=== PATIENT | male | born 1940 | race Caucasian/White ===

== ENCOUNTER 2023-01-06 08:03 | Outpatient (OUT) | payer MEDICARE, SELFPAY ==
[2023-01-06 08:38] LABS: Basophils Absolute Auto 0.1 10^3/uL (0.0-0.1); Basophils Percent Auto 0.6 % (0.2-2.0); Eosinophils Absolute Auto 0.5 10^3/uL (0.0-0.7); Eosinophils Percent Auto 5.6 % (0.9-7.0); Hemoglobin 13.3 g/dL (14.0-18.0); Immature Granulocytes Abs Auto 0.02 10^3/uL (0.00-0.03); Immature Granulocytes Pct Auto 0.2 % (0.0-0.5); Lymphocytes Percent Auto 24.2 % (20.5-60.0); Mean Corpuscular HGB Conc 33.3 g/dL (29.9-35.2); Mean Corpuscular Hemoglobin 31.7 pg (25.9-34.0); Mean Corpuscular Volume 95.2 fL (80.0-94.0); Mean Platelet Volume 10.5 fL (9.5-13.5); Monocytes Absolute Auto 0.8 10^3/uL (0.3-0.8); Monocytes Percent Auto 9.8 % (1.7-12.0); Neutrophils Percent Auto 59.6 % (43.0-75.0); Platelet Count 168 10^3/uL (150-450); Red Cell Distribution Width 14.4 % (11.0-15.0); White Blood Count 8.4 10^3/uL (4.0-11.0)
[2023-01-06 09:35] LABS: Estimated Average Glucose 108 mg/dL; Glycohemoglobin A1C 5.4 % (4.5-6.2)
[2023-01-06 09:48] LABS: Alanine Aminotransferase 21 U/L (16-63); Albumin Level 3.3 g/dL (3.4-5.0); Alkaline Phosphatase 110 U/L (46-116); Anion Gap 12.2; Aspartate Amino Transferase 12 U/L (15-37); BUN Creatinine Ratio 21.9; Bilirubin Total 1.2 mg/dL (0.2-1.0); Calcium 8.6 mg/dL (8.5-10.1); Carbon Dioxide 27.3 mmol/L (21.0-32.0); Chloride 108 mmol/L (98-107); Estimated GFR (African America 47 (>=60); Estimated GFR (Non-African Ame 39 (>=60); Globulin 3.4 g/dL; Glucose 95 mg/dL (74-106); Potassium 4.5 mmol/L (3.5-5.1); Sodium 143 mmol/L (136-145); Total Protein 6.7 g/dL (6.4-8.2)
[2023-01-06 10:05] LABS: Cholesterol 63 mg/dL (<=200); Free T3 2.13 pg/mL (2.18-3.98); HDL Cholesterol 28 mg/dL (40-60); Thyroid Stimulating Hormone 1.994 uIU/mL (0.358-3.740); Triglycerides 33 mg/dL (<=150); VLDL CHOLESTEROL 6.6 mg/dL
[2023-01-06 10:07] LABS: Chol HDL Ratio 2.3
[2023-01-06 10:10] LABS: Prostate Specific Antigen Scrn 2.31 ng/mL (<=4.00)
== END 2023-01-06 08:04 ==
LOC: LAB 08:07
PROVIDERS: PCP Family Medicine; Visit Provider Family Medicine
DX: E11.40 Type 2 diabetes mellitus with diabetic neuropathy, unspecified (principal); E78.5 Hyperlipidemia, unspecified; I10 Essential (primary) hypertension; Z12.5 Encounter for screening for malignant neoplasm of prostate; Z12.12 Encounter for screening for malignant neoplasm of rectum; I11.0 Hypertensive heart disease with heart failure; I50.30 Unspecified diastolic (congestive) heart failure
CPT/HCPCS: 36415; 80053; 80061; 83036; 83880; 84436; 84443; 84481; 85025; G0103

== ENCOUNTER 2023-01-15 14:00 | Outpatient (OUT) | payer MEDICARE, SELFPAY ==
--- NOTE | 2023-01-15 14:03 | CA_ITS ---
Patient: MARTINA DRIVER Exam Date: 01/15/2023 : 1940 Gender:M Ordering : DR Janusz Schuster . Admission #: [id number] Family : Order #: [id number] CLICK HERE TO VIEW EXAM ECHOCARDIOGRAM REPORT PROCEDURE: CA ECHO DOPPLER COMPLETE INDICATIONS: Shortness of breath, chest pain COMPARISON: None. DESCRIPTION: COMPLETE ECHOCARDIOGRAM Real-time transthoracic echocardiography with 2D, M-mode, spectral and color flow Doppler performed. QUALITY: Technical quality was good. LEFT VENTRICLE: Normal chamber size. Moderate concentric left ventricular hypertrophy. Global left ventricular systolic function is normal. LV EF: Calculated left ventricular ejection fraction is 57% DIASTOLIC: ATRIAL SEPTUM: LEFT ATRIUM: Moderate dilatation. RIGHT ATRIUM: Moderate dilatation. RIGHT VENTRICLE: Mild dilatation. Normal right ventricular systolic function. TRICUSPID VALVE: Normal mobility and thickness. No stenosis with trivial regurgitation. Mild pulmonary hypertension. RVSP 42 mmHg MITRAL VALVE: Normal mobility and thickness. No evidence of mitral valve stenosis. There is no mitral annular calcification. Mild mitral regurgitation. AORTIC VALVE: Normal trileaflet appearance. No visible sclerosis. Normal leaflet mobility. No evidence of aortic valve stenosis. No aortic regurgitation. AORTIC ROOT: Normal diameter and appearance. PULMONIC VALVE: Normal thickness and mobility. No stenosis. No regurgitation. PERICARDIUM: No evidence of pericardial effusion. IVC: Collapses with inspirations. Mildly dilated measuring 2.3 cm. PLEURA: CONCLUSION: 1. Moderate concentric left ventricular hypertrophy with normal systolic function. LVEF is estimated at 55 to 60%. 2. Mildly dilated right ventricle with normal systolic function. 3. Moderate biatrial dilatation. 4. Mild mitral regurgitation. 5. Mildly elevated right-sided pressures. RVSP is 42 mmHg. 6. No pericardial effusion. Adult Echocardiography Procedure Report Left Ventricle LVEDD (3.7 - 5.6 cm): 5.92 cm LVESD (2.2 - 4.0 cm): 3.57 cm LVIVS thickness (0.6 - 1.2 cm): 1.36 cm LVPW thickness (0.5 - 1.0 cm): 1.19 cm e': 0.08 m/s E - e': 10.56 LVOT Max Gradient: 3.75 mm[Hg] LVOT Area (cm2): 0.97 m/s Peak Velocity (LVOT): 0.97 m/s Mean Velocity (LVOT): 0.64 m/s LVOT Diameter 2.21 cm Left Ventricular Ejection Fraction: 56.58 % Left Atrium LA Volume Index (2D A2C): 46.60 ml/m2 Left Atrium Systolic Dimension: 4.56 cm Mitral Valve MV E to A Ratio: 0.93 Mitral Valve A-Wave Peak Velocity: 0.87 m/s Mitral Valve E-Wave Peak Velocity: 0.81 m/s Right Ventricle RV Internal Diastolic Dimension: 4.36 cm Aorta AO Root Diam: 3.46 cm Ascending Ao Diam: 3.34 cm Aortic Valve AoV Area (Peak Randy): 2.99 cm2, 2.99 cm2 AoV Area (VTI): 3.44 cm2, 3.44 cm2 Peak Velocity(Antegrade Flow): 1.25 m/s Peak Gradient(Antegrade Flow): 6.23 mm[Hg] Mean Velocity(Antegrade Flow): 0.77 m/s Mean Gradient(Antegrade Flow): 2.71 mm[Hg] Velocity Time Integral: 29.61 cm Tricuspid Valve Peak Velocity (Regurgitant Flow): 2.70 m/s, 2.91 m/s Pulmonic Valve Mean Gradient: 2.79 mm[Hg], 2.99 mm[Hg] Mean Velocity: 0.78 m/s, 0.81 m/s Peak Velocity: 1.15 m/s Peak Gradient: 5.09 mm[Hg], 5.42 mm[Hg] Right Atrium Right Atrium Systolic Pressure: 90.44 ml, 90.44 ml Dictated by: Ang Richmond M.D. on 01/15/2023 at 18:50 Approved by: Ang Richmond M.D. on 01/15/2023 at 18:53
[2023-01-16 03:14] LABS: Occult Blood Positive
== END 2023-01-15 14:01 | disposition home or self-care (01) ==
LOC: CARD 14:01
PROVIDERS: PCP Family Medicine; Visit Provider Family Medicine
DX: R06.02 Shortness of breath (principal); R07.9 Chest pain, unspecified; I34.0 Nonrheumatic mitral (valve) insufficiency; I51.7 Cardiomegaly
CPT/HCPCS: 93306; G0328

== ENCOUNTER 2024-04-04 07:12 | Outpatient (OUT) | payer MEDICARE, SELFPAY ==
[2024-04-04 07:32] LABS: Basophils Absolute Auto 0.1 10^3/uL (0.0-0.1); Basophils Percent Auto 0.7 % (0.2-2.0); Eosinophils Absolute Auto 0.6 10^3/uL (0.0-0.7); Hemoglobin 13.1 g/dL (14.0-18.0); Immature Granulocytes Abs Auto 0.02 10^3/uL (0.00-0.03); Immature Granulocytes Pct Auto 0.2 % (0.0-0.5); Lymphocytes Absolute Auto 2.1 10^3/uL (1.2-3.8); Lymphocytes Percent Auto 22.7 % (20.5-60.0); Mean Corpuscular HGB Conc 32.8 g/dL (29.9-35.2); Mean Corpuscular Volume 97.8 fL (80.0-94.0); Monocytes Absolute Auto 0.8 10^3/uL (0.3-0.8); Neutrophils Absolute Auto 5.6 10^3/uL (1.4-6.5); Neutrophils Percent Auto 60.4 % (43.0-75.0); Platelet Count 160 10^3/uL (150-450); Red Blood Count 4.09 10^6/uL (4.70-6.10); White Blood Count 9.2 10^3/uL (4.0-11.0)
[2024-04-04 08:24] LABS: Alanine Aminotransferase 20 U/L (16-63); Albumin Globulin Ratio 1.2; Albumin Level 3.5 g/dL (3.4-5.0); Alkaline Phosphatase 100 U/L (46-116); Anion Gap 13.6; Aspartate Amino Transferase 12 U/L (15-37); BUN Creatinine Ratio 21.9; Bilirubin Total 1.4 mg/dL (0.2-1.0); Calcium 8.7 mg/dL (8.5-10.1); Carbon Dioxide 26.9 mmol/L (21.0-32.0); Chloride 109 mmol/L (98-107); Cholesterol <50 mg/dL (<=200); Estimated GFR (African America 44 (>=60); Estimated GFR (Non-African Ame 37 (>=60); Free T3 2.36 pg/mL (2.18-3.98); Glucose 67 mg/dL (74-106); HDL Cholesterol 25 mg/dL (40-60); Potassium 4.5 mmol/L (3.5-5.1); Sodium 145 mmol/L (136-145); Thyroid Stimulating Hormone 2.627 uIU/mL (0.358-3.740); Total Protein 6.5 g/dL (6.4-8.2); Triglycerides 37 mg/dL (<=150); VLDL CHOLESTEROL 7.4 mg/dL
[2024-04-04 08:26] LABS: Estimated Average Glucose 123 mg/dL; Glycohemoglobin A1C 5.9 % (4.5-6.2)
[2024-04-04 08:57] LABS: Prostate Specific Antigen Scrn 2.17 ng/mL (<=4.00)
== END 2024-04-04 07:13 | disposition home or self-care (01) ==
LOC: LAB 07:16
PROVIDERS: PCP Family Medicine; Visit Provider Family Medicine
DX: I11.0 Hypertensive heart disease with heart failure (principal); I50.9 Heart failure, unspecified; E11.40 Type 2 diabetes mellitus with diabetic neuropathy, unspecified; E78.5 Hyperlipidemia, unspecified; N40.0 Benign prostatic hyperplasia without lower urinary tract symptoms; J44.9 Chronic obstructive pulmonary disease, unspecified; I10 Essential (primary) hypertension; E03.9 Hypothyroidism, unspecified; Z12.5 Encounter for screening for malignant neoplasm of prostate
CPT/HCPCS: 36415; 80053; 80061; 83036; 83880; 84436; 84443; 84481; 85025; G0103

== ENCOUNTER 2024-12-20 13:23 | Emergency (ER) | payer MEDICARE, SELFPAY ==
--- OUTSIDE RECORDS SUMMARY | 2024-10-19 09:10 | XMS_ITS ---
Author Organization The [facility] in [place] Address [address] [place] [address] Care Team Providers Care Database Marketing Manager Name Role Phone Ozzy Schuster Primary Care Provider [phone] REASON FOR VISIT basaglar no longer covered Medications Medication SIG (Take, Route, Frequency, Duration) Notes Start Date End Date Status Insulin Glargine 100 UNIT/ML Inject 30 units Subcutaneous BID for 90 days 4 boxes 10/19/2024 Active Encounters Encounter Location Date Provider Diagnosis [facility] [address] [place] [address] 10/19/2024 Ozzy Schuster Plan Of Treatment Medication Medication Name Sig Start Date Stop Date Notes Insulin Glargine 100 UNIT/ML Inject 30 u nits Subcutaneous BID for 90 days 10/19/2024 Next Appt Details Provider Name:Ozzy Kovacs Chunbeto, 10:30:00 AM, [address] [place], [address], Progress Notes * Henry DRIVER RDOB:[birth year] (84 yo M)Acc No.[id number]:10/19/2024 Patient: Maria Ines Henry GANNON :1940 A ge:84 Y S ex:Male Address:[address] [place] [address], [phone] * Refills Start Insulin Glargine Solution Pen-injector, 100 UNIT/ML, Subcutaneous, 60 Milliliter, Inject 30 units, BID, 90 days, Refills=3 * true * Date: Generated for Armando alicea/Rex/Darbyitting on: 0 12/20/2024 01:31 PM EDT
--- OUTSIDE RECORDS SUMMARY | 2024-11-17 05:22 | XMS_ITS ---
Author Organization The [facility] in [place] Address [address] [place] [address] Care Team Providers Care Camper Assembler Name Role Phone Ozzy Schuster Primary Care Provider [phone] REASON FOR VISIT Trelegy Medications Medication SIG (Take, Route, Frequency, Duration) Notes Start Date End Date Status Trelegy Ellipta 100-62.5-25 MCG/ACT 1 puff Inhalation Once a day for 30 days 11/17/2024 Active Encounters Encounter Location Date Provider Diagnosis [facility] [address] [place] [address] 11/17/2024 Ozzy Schuster Plan Of Treatment Medication Medication Name Sig Start Date Stop Date Notes Trelegy Ellipta 100-62.5-25 MCG/ACT 1 puff Inhalation Once a day for 30 days 11/17/2024 Next Appt Details Provider Name:Ozzy Kovacs Chunbeto, 10:30:00 AM, [address] [place], [address], Progress Notes * Henry DRIVER RDOB:[birth year] (84 yo M)Acc No.[id number]:11/17/2024 Patient: Maria Ines Henry GANNON :1940 A ge:84 Y S ex:Male Address:[address] [place] [address], [address] * Refills Start Trelegy Ellipta Aerosol Powder Breath Activated, 100-62.5-25 MCG/ACT, Inhalation, 1, 1 puff, Once a day, 30 days, Refills=11 * true * Date: Generated for Armando alicea/Rex/Matilde on: 0 12/20/2024 01:31 PM EDT
--- OUTSIDE RECORDS SUMMARY | 2024-11-27 06:15 | XMS_ITS ---
Author Organization The [facility] in [place] Address [address] [place] [address] Care Team Providers Care Foreign Broadcast Specialist Name Role Phone Ozzy Schuster Primary Care Provider REASON FOR VISIT 3mo Encounters Encounter Location Date Provider Diagnosis [address] [address] 11/27/2024 Ozzy Schuster Plan Of Treatment Next Appt Details Provider Name:Ozzy Schuster, 10:30:00 AM, [address] [place], [address], Progress Notes * Henry DRIVER RDOB:[birth year] (84 yo M)Acc No.[id number]:11/27/2024 UNLOCKED PROGRESS NOTE Progress Note Patient: Maria Ines WOOHenry SILVESTRE Provider: Sergey Schuster MD (TTC) :1940 A ge:84 Y S ex:Male Date:11/27/2024 Address:[address] [place], [place] [id number] Subjective: * Chief Complaints: * 1 . 3mo. * Medical History: Objective: * Vitals: Assessment: Plan: * Treatment: * * Electronic signature of Ozzy Schuster MD, [id number] on 12/20/2024 at 01:31 PM EDT Sign off status: Pending Visit Status: N /S N/C (No Show/No Charge) * Provider: Sergey TORRESMD Valeria Date: 0 11/27/2024 Generated for Armando alicea/Rex/Matilde on: 0 12/20/2024 01:31 PM EDT
--- OUTSIDE RECORDS SUMMARY | 2024-12-07 13:30 | XMS_ITS | Encounter Summary ---
Author Organization [facility] Address [address] 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 No / Unsure 12/07/2024 1:02 PM EDT documented as of this encounter Last Filed Vital Signs Vital Sign Reading Time Taken Comments Blood Pressure 126/84 12/07/2024 1:34 PM EDT Pulse 80 12/07/2024 1:34 PM EDT Temperature 37 C (98.6 F) 12/07/2024 1:34 PM EDT Respiratory Rate - - Oxygen Saturation - - Inhaled Oxygen Concentration - - Weight 103 kg (226 lb) 12/07/2024 1:34 PM EDT Height 170.2 cm (5' 7 ) 12/07/2024 1:34 PM EDT Body Mass Index 35.4 12/07/2024 1:34 PM EDT documented in this encounter Progress Notes * Dayna Varela LPN - 12/07/2024 1:30 PM EDT Patient here for Wound check ordered by Dr. Drew due to PM dual changer implant 11/30/2024. Dr. Singleton in suite to review prior to discharge. Patient here due to wound check. Medication list Updated with list . Denies cardiac complaints. Dressing removed. No redness, warmth or drainage noted. Very minimal bruising or swelling. [address] Drew to read. Vitals: 12/07/24 1334 BP: 126/84 BP Location: Right arm Patient Position: Sitting Pulse: 80 Temp: 37 ??C (98.6 ??F) Weight: 103 kg (226 lb) Height: 1.702 m (5' 7 ) documented in this encounter Plan of Treatment Upcoming Encounters Date Type Department Care Team (Late st Contact Info) Description 03/09/2025 11:00 AM EDT Appointment [facility] [address] [place] [address] 03/09/2025 11:40 AM EDT Office Visit [facility] [address] [facility] [address] [place] [address] Yesenia Drew MD [address] [facility] Office Bldg, [address] [place] [address] 06/04/2025 10:30 AM EST Office Visit [address] [place] [address] Gali Marcus, BUSINESS SOLUTIONS CONSULTANT-COMPUTER APPLICATIONS DEVELOPER [address] [facility] [address], [address] [place] [address] documented as of this encounter Visit Diagnoses Diagnosis Presence of cardiac pacemaker Cardiac pacemaker in situ Bradycardia Other specified cardiac dysrhythmias 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
--- OUTSIDE RECORDS SUMMARY | 2024-12-20 13:31 | XMS_ITS | Encounter Summary ---
Author Organization [facility] Address [address] [place] [address] Phone Care Team Providers Care Shake Maker Name Role Phone Janusz Schuster MD Primary Care Provider [phone] Yesenia Drew MD Unavailable Encounter Details Date Type Department Care Team (Late st Contact Info) Description 10/24/2021 Orders Only [facility] [address] [place] [address] Conversion, Onbase Social History Tobacco Use Types Packs/Day Years Used Date Smoking Tobacco: Never Assessed Sex and Gender Information Value Date Recorded Sex Assigned at Not on file Legal Sex Male 5:06 AM EST Gender Identity Not on file Sexual Orientation Not on file documented as of this encounter Plan of Treatment Upcoming Encounters Date Type Department Care Team (Late st Contact Info) Description 03/09/2025 11:00 AM EDT Appointment [facility] [address] [place] [address] 03/09/2025 11:40 AM EDT Office Visit [facility] [address] [facility] [address] [place] [phone] Yesenia Drew MD [address] [facility] Office Bldg, [address] [place], [place] [phone] 06/04/2025 10:30 AM EST Office Visit [place] [address] [place] [address] Gali Marcus, SPLICING SUPERVISOR-METAL CANS SUPERVISOR [address] [facility] [address], [address] [place] [address] Scheduled Orders Name Type Priority Associated Diagnoses Orde r Schedule OUTSIDE LAB SCAN Lab Ordered: 10/24/2021 documented as of this encounter Visit Diagnoses Not on filedocumented in this encounter Care Teams Shake Maker Relationship Specialty Start Date End Date Janusz Schuster MD [address] [facility] [place] [address] PCP - General 07/19/99 Yesenia Drew MD [address] [facility] Office [facility], [address] [place] [address] Relocation Associate Electrophysiology 11/09/24 documented as of this encounter
--- OUTSIDE RECORDS SUMMARY | 2024-12-20 13:31 | XMS_ITS | Clinical Summary ---
Author Organization [facility] Address [address] [place] [address] Phone Care Team Providers Care Acid Extractor Name Role Phone Janusz Schuster MD Primary Care Provider [phone] Yesenia Drew MD Unavailable Allergies No known active allergies Medications atorvastatin (Lipitor) 40 mg tablet Take 1 tablet (40 mg) by mouth once daily at bedtime. 09/17/19 21 Active insulin NPH and regular human (NovoLIN 70/30 U-100 Insulin) 100 unit/mL (70-30) injection Inject under the skin. 03/11/20 20 Active isosorbide mononitrate ER (Imdur) 30 mg 24 hr tablet Take 1 tablet (30 mg) by mouth once daily. 03/26/20 21 Active metFORMIN (Glucophage) 500 mg tablet Take 1 tablet (500 mg) by mouth 2 times a day. 07/20/19 21 Active Klor-Con M20 20 mEq ER tablet Take 1 tablet (20 mEq) by mouth 2 times a day. 07/10/20 20 Active lisinopril 2.5 mg tabletIndicatio ns:Coronary artery disease, unspecified vessel or lesion type, unspecified whether angina present, unspecified whether [place] or transplanted heart TAKE 1 TABLET BY MOUTH EVERY DAY 90 tablet 3 03/23/20 24 Active furosemide (Lasix) 40 mg tabletIndicatio ns:Coronary artery disease involving [place] coronary artery of [place] heart without angina pectoris,Histor y of PTCA,SOB (shortness of breath) on exertion Take 1 tablet (40 mg) by mouth once daily. 90 tablet 3 10/29 Active Trelegy Ellipta 100-62.5-25 mcg blister with device Inhale 1 puff once every 24 hours. 11/18/19 Active aspirin 81 mg EC tabletIndicatio ns:Pacemaker Take 1 tablet (81 mg) by mouth once daily. Hold for 1 week and resume on 12/07/24 12/01/19 Active clopidogrel (Plavix) 75 mg tabletIndicatio ns:Pacemaker Take 1 tablet (75 mg) by mouth once daily. Hold for 1 week and resume on 12/07/2024 12/01/19 Active acetaminophen (Tylenol) 325 mg tabletIndicatio ns:Pacemaker,Po st-op pain Take 2 tablets (650 mg) by mouth every 4 hours if needed for mild pain (1 - 3) or moderate pain (4 - 6). 12/01/19 Active clopidogrel (Plavix) 75 mg tablet Take 1 tablet (75 mg) by mouth once daily. 04/28/20 Discontinued aspirin 81 mg EC tablet Take 1 tablet (81 mg) by mouth once daily. 12/01/19 Discontinued traMADol (Ultram) 50 mg tabletIndicatio ns:Pacemaker,Po st-op pain Take 1 tablet (50 mg) by mouth every 8 hours if needed for moderate pain (4 - 6) or severe pain (7 - 10). If no relief from tylenol then alternate tylenol with Tramadol 10 tablet 12/01/19 Discontinued( erapy completed) Active Problems Problem Noted Date Diagnosed Date Former smoker 11/21/2024 Encounter for medication review and counseling 0 11/21/2024 Encounter to discuss treatment options Encounter to establish care with new doctor 12/2024 Sinus pause 11/21/2024 Bradycardia 08/28/2024 Assessment & Plan (10/12/2024 2:15 PM EDT): Aug 2024: ECG in office bradycardia at 43 bpm Sinus arrhythmia On Toprol 25 mg daily He denies any dizziness or lightheadedness. No prior syncopal episode. Minimal fatigability. Toprol was to be discontinued. September 2024 Holter: Abnormal 48-hour Holter monitor. The patient rhythm was sinus throughout average heart rate 66 bpm with marked sinus arrhythmia. Patient had significant pauses up to 4.8 seconds which was not symptomatic during an event of marked sinus bradycardia. Relatively small volume of isolated PVCs were seen represented 0.5% of total QRS complexes. No atrial arrhythmias were seen. He was referred to Dr. Drew (I only realized today that the appointment is not until November 2024) September 2024: Following a cystoscopy/TURP reportedly had heart rate in the 30s (no documentation) and was monitored overnight at [facility] without significant arrhythmias. EKG in office today is normal sinus rhythm at 72 bpm. He continues to deny any type of dizziness or lightheadedness. No prior syncopal episode. Has minimal fatigability, no dyspnea on exertion. Assessment & Plan (08/28/2024 12:43 PM EST): ECG in office bradycardia at 43 bpm Sinus arrhythmia On Toprol 25 mg daily. He denies any dizziness or lightheadedness. No prior syncopal episode. Minimal fatigability. 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% Diabetes mellitus (Multi) 06/25/2023 Assessment & Plan (10/12/2024 2:15 PM EDT): On statin/BALJINDER Unknown hemoglobin A1c Assessment & Plan (08/28/2024 12:43 PM EST): On statin/BALJINDER Unknown hemoglobin A1c Hyperlipidemia 06/25/2023 Assessment & Plan (10/12/2024 2:00 PM EDT): Moderate intensity statin Report annual labs at [facility] Assessment & Plan (08/28/2024 12:42 PM EST): Moderate intensity statin Report annual labs at [facility] BMI 35.0-35.9,adult 06/25/2023 Assessment & Plan (10/12/2024 2:15 PM EDT): Reviewed the merits of healthy lifestyle choices on overall cardiovascular health. Assessment & Plan (08/28/2024 12:44 PM EST): Reviewed the merits of healthy lifestyle choices on overall cardiovascular health. Sick sinus syndrome due to s inoatrial node dysfunction (Multi) 06/25/2023 SOB (shortness of breath) on exertion 06/25/2023 Resolved Problems Problem Noted Date Diagnosed Date Resolved Date History of PTCA 06/25/2023 08/28/2024 Paroxysmal atrial fibrillation (Multi) 06/25/2023 08/28/2024 Encounters Date Type Department Care Team Description 12/20/2024 Telephone [facility] [address] [facility] [address] [place] [address] Naeem High RN 12/07/2024 1:30 PM EDT Clinical Support [facility] [address] [facility] [address] [place] [address] Dayna Varela LPN Presence of cardiac pacemaker; Bradycardia; Sick sinus syndrome due to sinoatrial node dysfunction (Multi); Sinus pause 12/07/2024 Travel 11/30/2024 8:30 AM EDT - 11/30/2024 10:00 AM EDT Surgery [facility] [address] [place] [phone] Yesenia Drew MD PPM IMPLANT DUAL [13558 (CPT )] 11/30/2024 8:00 AM EDT Anesthesia Event [facility] [address] [place] [phone] Pily Ashton MD 11/30/2024 6:00 AM EDT - 11/30/2024 1:59 PM EDT Hospital Encounter [facility] [address] [place] [phone] Yesenia Drew MD Bradycardia (Primary Dx); Sick sinus syndrome due to sinoatrial node dysfunction (Multi); Sinus pause; Pacemaker; Post-op pain Discharge Disposition: Home 11/30/2024 Travel 11/22/2024 Telephone [facility] [address] [facility] [address] [place] [address] Wilma Marquez LPN lab results 11/21/2024 9:35 AM EDT Lab [facility] [address] [place] [phone] Bradycardia, unspecified (Primary Dx); Sick sinus syndrome (Multi); Other specified heart block 11/21/2024 7:15 AM EDT Office Visit [facility] [address] [address] Yesenia Drew MD Bradycardia (Primary Dx); Sick sinus syndrome due to sinoatrial node dysfunction (Multi); Sinus pause; Coronary artery disease involving [place] coronary artery of [place] heart without angina pectoris; Mixed hyperlipidemia; SOB (shortness of breath) on exertion; BMI 35.0-35.9,adult; Former smoker; Encounter for medication review and counseling; Encounter to discuss treatment options; Encounter to establish care with new doctor 11/21/2024 Travel 11/07/2024 Telephone [facility] [address] [facility] [address] [place] [address] Carolina Brooks LPN 10/17/2024 3:00 PM EDT Ancillary Procedure [address] [place] [address] Libertad Montoya LPN Bradycardia 10/17/2024 Travel 10/12/2024 2:00 PM EDT Office Visit [address] [place] [address] Gali Marcus APRN-PAUL Bradycardia (Primary Dx); Coronary artery disease involving [place] coronary artery of [place] heart without angina pectoris; Mixed hyperlipidemia; Sick sinus syndrome due to sinoatrial node dysfunction (Multi); Type 2 diabetes mellitus without complication, with long-term current use of insulin (Multi); BMI 35.0-35.9,adult 10/12/2024 Travel 09/29/2024 Scanned Document [facility] [address] [place] [address] Scanning, Generic Provider 09/29/2024 Orders Only [facility] [address] [place] [address] Gian Lyon, DO 09/28/2024 Scanned Document [facility] [address] [place] [address] Scanning, Generic Provider 09/28/2024 Orders Only [facility] [address] [place] [address] Gian Lyon, DO 09/21/[address] [address] Dayna Varela LPN from Last 3 Months Immunizations Immunization Administration Dates Next Due Flu vaccine, trivalent, pres ervative free, HIGH-DOSE, age 65y+ (Fluzone) 06/17/2017 Family History Medical History Relation Name Comments Bone cancer Father Heart attack Mother Relation Name Status Comments Father Mother Social History Tobacco Use Types Packs/Day Years [...] No / Unsure 12/07/2024 1:02 PM EDT Last Filed Vital Signs Vital Sign Reading Time Taken Comments Blood Pressure 126/84 12/07/2024 1:34 PM EDT Pulse 80 12/07/2024 1:34 PM EDT Temperature 37 C (98.6 F) 12/07/2024 1:34 PM EDT Respiratory Rate 18 11/30/2024 12:30 PM EDT Oxygen Saturation 96% 11/30/2024 12:30 PM EDT Inhaled Oxygen Concentration - - Weight 103 kg (226 lb) 12/07/2024 1:34 PM EDT Height 170.2 cm (5' 7 ) 12/07/2024 1:34 PM EDT Body Mass Index 35.4 12/07/2024 1:34 PM EDT Plan of Treatment Upcoming Encounters Date Type Department Care Team (Late st Contact Info) Description 03/09/2025 11:00 AM EDT Appointment [facility] [address] [place] [address] 03/09/2025 11:40 AM EDT Office Visit [facility] [address] [facility] [address] [place] [address] Yesenia Drew MD [address] [facility] Medical Office Bldg, [address] [place] [address] 06/04/2025 10:30 AM EST Office Visit [address] [place] [address] Gali Marcus, RECONCILIATION MACHINE OPERATOR-INTERNET DEVELOPER [address] [facility] [address], [address] [place] [address] Health Maintenance Due Date Last Done Comments Diabetes: Hemoglobin A1C 1940 Diabetes: Urine Protein Screening 1940 Lipid Panel 1939 Pneumococcal Vaccine (1 of 2 - PCV) 1958 DTaP/Tdap/Td Vaccines (1 - Tdap) 1961 Zoster Vaccines (1 of 2) 1989 RSV High Risk: (Elderly (60+ ) or Population) (1 - 1-dose 75+ series) 2014 Medicare Annual Wellness Vis it (AWV) 06/06/2020 06/05/2019 Echocardiogram 10/23/2022 10/23/2021 COVID-19 Vaccine (1 - 2023-2 5 season) 2024 Diabetes: Retinopathy Screening 06/03/2024 06/03/2022, 10/23/2020, 11/15/2018 Influenza Vaccine (Season Ended) 2025 04/14/2023, 06/17/2017 Creatinine Level 11/30/2025 11/30/2024, 11/21/2024 Potassium Level 11/30/2025 11/30/2024, 11/21/2024 HIB Vaccines Aged Out No longer eligi ble based on patient's age to complete this topic HPV Vaccines Aged Out No longer eligi ble based on patient's age to complete this topic Hepatitis A Vaccines Aged Out No long er eligible based on patient's age to complete this topic Hepatitis B Vaccines Aged Out No long er eligible based on patient's age to complete this topic IPV Vaccines Aged Out No longer eligi ble based on patient's age to complete this topic Meningococcal Vaccine Aged Out No diego heather eligible based on patient's age to complete this topic Rotavirus Vaccines Aged Out No longer eligible based on patient's age to complete this topic Medical Devices Implanted Type Area Electrolytic Etcher Device Identifier Shelf Expiration Date Model / Serial / Lot Lead, Capsurefix Novus, 52 Cm - [id number] Implanted:Qty : 1 on 11/30/2024 by Yesenia Drew MD at [facility] Cardiac Pacemaker Left: Chest [employer] [id number] 08/01/2026 5076-52 / [id number] 3V / [id number] 3V Lead, Capsurefix Novus, 45 Cm - [id number] Implanted:Qty : 1 on 11/30/2024 by Yesenia Drew MD at [facility] Cardiac Pacemaker Left: Chest [employer] [id number] 08/11/2026 5076-45 / [id number] 7V / [id number] 7V Pacemaker, Dual Chamber, Lesli Mri Xt Dr - [id number] - [id number] Implanted:Qty : 1 on 11/30/2024 by Yesenia Drew MD at [facility] Cardiac Pacemaker Left: Chest [employer] [id number] 03/15/2026 [id number] / [id number] 4G / [id number] [id number] Procedures Procedure Name Priority Date/Time Associated Diagnosis Comments CARDIAC DEVICE CHECK - INPATIENT - PACEMAKER DUAL CHAMBER WITH PROG Routine 11/30/2024 12:53 PM EDT Sinus pause Pacemaker ECG 12-LEAD STAT 11/30/2024 10:13 AM EDT PPM IMPLANT DUAL Routine 11/30/2024 9:08 AM EDT Bradycardia Sick sinus syndrome due to sinoatrial node dysfunction (Multi) Sinus pause ECG 12-LEAD STAT 11/30/2024 7:56 AM EDT COAGULATION SCREEN STAT 11/30/2024 6: 53 AM EDT CBC STAT 11/30/2024 6:53 AM EDT BASIC METABOLIC PANEL STAT 11/30/2024 6:53 AM EDT PHLEB CHARGE - VENIPUNCTURE (LAB USE ONLY) Routine 11/21/2024 8:14 AM EDT Bradycardia, unspecified Sick sinus syndrome (Multi) Other specified heart block BASIC METABOLIC PANEL Routine 11/21/2024 8:14 AM EDT Bradycardia, unspecified Sick sinus syndrome (Multi) Other specified heart block CBC Routine 11/21/2024 8:14 AM EDT Bradycardia, unspecified Sick sinus syndrome (Multi) Other specified heart block PROTIME-INR Routine 11/21/2024 8:14 AM EDT Bradycardia Sick sinus syndrome due to sinoatrial node dysfunction (Multi) Sinus pause HOLTER MONITOR 24-48 HOURS - TIMBER SIZER OPERATOR, ANALYZED, AND PHYSICIAN READ Routine 10/17/2024 3:21 PM EDT Bradycardia ECG 12-LEAD Routine 10/12/2024 2:00 PM EDT Bradycardia NON-[facility] HIE CAPILLARY GLUCOSE POC Routine 09/29/2024 11:15 AM EDT NON-[facility] HIE CAPILLARY GLUCOSE POC Routine 09/29/2024 8:41 AM EDT NON-[facility] HIE CAPILLARY GLUCOSE POC Routine 09/28/2024 9:24 PM EDT NON-[facility] HIE CAPILLARY GLUCOSE POC Routine 09/28/2024 8:45 PM EDT NON-[facility] HIE CAPILLARY GLUCOSE POC Routine 09/28/2024 4:36 PM EDT ECHOCARDIOGRAM 10/23/2021 from Last 3 Months or Most Recently Relevant to Health Maintenance Results * CARDIAC DEVICE CHECK - INPATIENT - PACEMAKER DUAL CHAMBER WITH PROG (11/30/2024 12:53 PM EDT) Anatomical Region Laterality Modality Echocardiography 11/30/2024 12:4 3 PM EDT Liana Frey RECONCILIATION MACHINE OPERATOR-INTERNET DEVELOPER CV IMPLANTABLE CARDIAC DEVIC E PROCEDURES Final Result * ECG 12 lead STAT (11/30/2024 10:13 AM EDT) Only the most recent of3 resultswithin the time period is included. Ventricular Rate 68 BPM MUSE Atrial Rate 68 BPM MUSE RI Interval 208 ms MUSE QRS Duration 112 ms MUSE QT Interval 400 ms MUSE QTC Calculation(Baze tt) 425 ms MUSE P [place] 12 degrees MUSE R [place] -50 degrees MUSE T [place] 5 degrees MUSE QRS Count 11 beats MUSE Q Onset 213 ms MUSE P Onset 109 ms MUSE P Offset 175 ms MUSE T Offset 413 ms MUSE QTC Fredericia 417 ms MUSE 11/30/2024 10:0 5 AM EDT 12/01/2024 11:08 PM EDT Narrative MUSE - 12/01/2024 11:08 PM EDT Normal sinus rhythm Left axis deviation Septal infarct , age undetermined Abnormal ECG When compared with ECG of 30-NOV-2024 06:51, (unconfirmed) Septal infarct is now Present Confirmed by Mejia Gallardo ([id number]) on 12/01/2024 11:08:43 PM Procedure Note Mejia Gallardo MD - 12/01/2024 Normal sinus rhythm Left axis deviation Septal infarct , age undetermined Abnormal ECG When compared with ECG of 30-NOV-2024 06:51, (unconfirmed) Septal infarct is now Present Confirmed by Mejia Gallardo ([id number]) on 12/01/2024 11:08:43 PM Liana Frey RECONCILIATION MACHINE OPERATOR-INTERNET DEVELOPER ECG ORDERABLES Final Result MUSE * PPM IMPLANT DUAL (11/30/2024 9:08 AM EDT) Narrative [email or web address] - 11/30/2024 10:45 AM EDT Permanent Pacemaker System Implantation Dual Chamber Summary: Successful implantation of a dual-chamber permanent pacemaker. The pacing and sensing thresholds were satisfactory. Recommendations: A 12 lead ECG should be performed prior to discharge from the hospital. The patient should continue with the present medications. Discharge: The patient recovered uneventfully from the effects of conscious sedation. The patient left the EP laboratory in stable condition and was transferred to the telemetry unit. Follow up: The patient will remain in the hospital for telemetry monitoring and observation, with anticipated discharge on the same day. The patient should be alert for bleeding, swelling, or signs of infection. The patient should call the transit mix operator immediately if symptoms recur, or for any problems. The patient and family (daughter via telephone with HIPAA consent) have been instructed accordingly. Follow up with [facility] office in seven days for post-operative wound assessment. Follow up with [facility] in twelve weeks for routine device analysis and reprogramming if necessary. Remote monitoring will be instituted if possible. Procedures: RV and RA lead implantation. Pocket fashioned. Dual-chamber permanent pacemaker implantation. Device testing. Patient history: Please refer to the detailed history and physical on the patient's medical chart. Procedure narrative: The risks, benefits, and alternatives to the procedure and sedation were explained to the patient, and informed consent was obtained. The patient was in the fasting state. A grounding pad was placed. Self-adhesive anterior-posterior defibrillation pads were applied. A ZOLL defibrillator was used for monitoring and the defibrillator waveform was set to biphasic. The patient was set up for continuous monitoring of surface 12 lead ECG and pulse oximetry. Blood pressure was monitored. The procedure was performed under IV conscious sedation. The upper chest was prepped and draped in the usual sterile fashion. Local anesthesia: After preoperative IV antibiotic was completely infused, subcutaneous tissues just medial to the left deltopectoral area, were infiltrated with Lidocaine 1% and Marcaine 0.25% for local anesthesia. Using a #15 scalpel, an incision was made, which was extended to the prepectoral fascia using blunt dissection. With cutdown, the left cephalic vein was identified, the distal end was tied off, and using Cole scissors, a venotomy was created. Complex procedure - additional 35 minutes for vascular access. The cephalic vein was too small to accommodate the lead directly, therefore a micropuncture wire was advanced directly into the vein and to the heart under fluoroscopic guidance. A 5 F dilator was advanced over the vein to dilate the vein. The dilator was removed. Then a 5 F sheath was advanced over the wire. The dilator was removed. A glidewire was advanced into the sheath. The sheath was removed. The glidewire was advanced to the heart under fluoroscopic guidance. The vein was dilated with 6F then 7 F dilators. A long 7 F sheath was advanced over the wire. The dilator and wire were removed. A long guidewire was advanced alongside the sheath and retained. A lead was then advanced to the heart via fluoroscopic guidance, and the sheath was peeled away. The ventricle was mapped, and the lead was fixed to the right ventricular septum. After lead placement, appropriate sensing and thresholds were obtained. No diaphragmatic pacing occurred at 10V and 1.5ms. A second sheath was advanced over the guidewire, and the dilator and guidewire were removed. Under fluoroscopic guidance, a second lead was advanced to the heart, and the sheath peeled away. The atrium was mapped, and the lead was fixed to the lateral right atrium. After lead placement, appropriate sensing and thresholds were obtained. No diaphragmatic pacing occurred at 10V and 1.5 ms. The leads were sutured in place to the pectoralis muscle. A second suture was placed around each lead sleeve. Hemostasis was obtained with bovie cautery and a tie around the cephalic vein. Lead measurements were reevaluated. A left prepectoral pocket was fashioned. A dual-chamber permanent pacemaker ([id number] #[id number]) was attached to the leads and implanted. The device was interrogated and its parameters recorded; telemetered electrograms and pacing and sensing thresholds were measured. The pocket was flushed with saline and vancomycin. Wound hemostasis was obtained with electrocautery, Romain, and D-Stat. The wound was closed in three layers. The skin was approximated with subcuticular suture and skin adhesive. Steri strips were applied and the incision was covered with a sterile dressing. Manual pressure was applied. See signed procedural log and parameters. The patient was transferred to the telemetry unit. Complications: The patient tolerated the procedure without any complications or incident. us Yesenia Drew MD CV ELECTROPHYSIOLOGY PROCEDURES Final Result Performing Organization Address City/[facility]/ZIP Co de Phone Number [email or web address] * (ABNORMAL) Coagulation Screen (11/30/2024 6:53 AM EDT) Protime 12.6(H) 9.8 - 12.4 seconds LAB COAGULATION METHOD 11/30/2024 7:34 AM EDT [facility] INR 1.1 0.9 - 1.1 LAB COAGULATION METHOD 11/30/2024 7:34 AM EDT [facility] aPTT 29 26 - 36 seconds LAB COAGULATION METHOD 11/30/2024 7:34 AM EDT [facility] Blood Venous blood specimen / Unknown Venipuncture / Unknown 11/30/2024 6:53 AM EDT 11/30/2024 7:22 AM EDT [facility] LAB - 11/30/2024 7:34 AM EDT The APTT is no longer used for monitoring Unfractionated Heparin Therapy. For monitoring Heparin Therapy, use the Heparin Assay. us Liana Pang APRN-INTERNET DEVELOPER LAB BLOOD ORDERABLES Fin al Result Performing Organization Address City/[facility]/ZIP Co de Phone Number [facility] [address] [place] [address] * (ABNORMAL) CBC (11/30/2024 6:53 AM EDT) Only the most recent of2 resultswithin the time period is included. WBC 8.2 4.4 - 11.3 x10*3/uL LAB HEMATOLOGY METHOD 11/30/2024 7:24 AM EDT [facility] nRBC 0.0 0.0 - 0.0 /100 WBCs LAB HEMATOLOGY METHOD 11/30/2024 7:24 AM EDT [facility] RBC 4.06(L) 4.50 - 5.90 x10*6/uL LAB HEMATOLOGY METHOD 11/30/2024 7:24 AM EDT [facility] Hemoglobin 12.7(L) 13.5 - 17.5 g/dL LAB HEMATOLOGY METHOD 11/30/2024 7:24 AM EDT [facility] Hematocrit 38.9(L) 41.0 - 52.0 % LAB HEMATOLOGY METHOD 11/30/2024 7:24 AM EDT [facility] MCV 96 80 - 100 fL LAB HEMATOLOGY METHOD 11/30/2024 7:24 AM EDT [facility] MCH 31.3 26.0 - 34.0 pg LAB HEMATOLOGY METHOD 11/30/2024 7:24 AM EDT [facility] MCHC 32.6 32.0 - 36.0 g/dL LAB HEMATOLOGY METHOD 11/30/2024 7:24 AM EDT [facility] RDW 14.1 11.5 - 14.5 % LAB HEMATOLOGY METHOD 11/30/2024 7:24 AM EDT [facility] Platelets 162 150 - 450 x10*3/uL LAB HEMATOLOGY METHOD 11/30/2024 7:24 AM EDT [facility] Blood Venous blood specimen / Unknown Venipuncture / Unknown 11/30/2024 6:53 AM EDT 11/30/2024 7:23 AM EDT Liana Pang RECONCILIATION MACHINE OPERATOR-INTERNET DEVELOPER LAB BLOOD ORDERABLES Fin al Result [facility] [address] [place] [address] * (ABNORMAL) Basic Metabolic Panel (11/30/2024 6:53 AM EDT) Only the most recent of2 resultswithin the time period is included. Glucose 103(H) 74 - 99 mg/dL LAB CHEMISTRY METHOD 11/30/2024 7:[address] [facility] Sodium 141 136 - 145 mmol/L LAB CHEMISTRY METHOD 11/30/2024 7:[address] [facility] Potassium 4.9 3.5 - 5.3 mmol/L LAB CHEMISTRY METHOD 11/30/2024 7:[address] [facility] Chloride 109(H) 98 - 107 mmol/L LAB CHEMISTRY METHOD 11/30/2024 7:[address] [facility] Bicarbonate 22 21 - 32 mmol/L LAB CHEMISTRY METHOD 11/30/2024 7:[address] [facility] Anion Gap 15 10 - 20 mmol/L LAB CHEMISTRY METHOD 11/30/2024 7:[address] [facility] Urea Nitrogen 53(H) 6 - 23 mg/dL LAB CHEMISTRY METHOD 11/30/2024 7:[address] [facility] Creatinine 2.11(H) 0.50 - 1.30 mg/dL LAB CHEMISTRY METHOD 11/30/2024 7:[address] [facility] eGFR 30(L) >60 mL/min/1. 73m*2 LAB CHEMISTRY METHOD 11/30/2024 7:[address] [facility] Comment: Calculations of estimated GFR are performed using the 2020 CKD-EPI Study Refit equation without the race variable for the IDMS-Traceable creatinine methods. https://jasn.asnjournals.org/content/early//ASN.4680685224 Calcium 8.9 8.6 - 10.3 mg/dL LAB CHEMISTRY METHOD 11/30/2024 7:[address] [facility] Blood Venous blood specimen / Unknown Venipuncture / Unknown 11/30/2024 6:53 AM EDT 11/30/2024 7:22 AM EDT Liana Pang RECONCILIATION MACHINE OPERATOR-INTERNET DEVELOPER LAB BLOOD ORDERABLES Fin al Result Performing Organization Address City/State/[facility] Co de Phone Number [facility] [address] [place] [address] * Phleb Charge - Venipuncture (Lab Use Only) (11/21/2024 8:14 AM EDT) Blood Venous blood specimen / Unknown Venipuncture / Unknown 11/21/2024 8:14 AM EDT 11/21/2024 9:32 AM EDT us Yesenia Drew MD LAB BLOOD ORDERABLES Final Resul t Performing Organization Address [facility] Co de Phone Number [facility] [address] [place] [address] * (ABNORMAL) Protime-INR (11/21/2024 8:14 AM EDT) Protime 12.9(H) 9.8 - 12.4 seconds LAB COAGULATION METHOD 11/21/2024 9:46 AM EDT [facility] INR 1.2(H) 0.9 - 1.1 LAB COAGULATION METHOD 11/21/2024 9:46 AM EDT [facility] Blood Venous blood specimen / Unknown Venipuncture / Unknown 11/21/2024 8:14 AM EDT 11/21/2024 9:33 AM EDT us Yesenia Drew MD LAB BLOOD ORDERABLES Final Resul t Performing Organization Address [facility] Co de Phone Number [facility] [address] [place] [address] * HOLTER MONITOR 24-48 HOURS - TIMBER SIZER OPERATOR, ANALYZED, AND PHYSICIAN READ (10/17/2024 3:21 PM EDT) Narrative [facility] - 11/02/2024 12:20 PM EDT This is a 48-hour Holter monitor Indication bradycardia Procedure patient underwent 24-hour Holter monitor. Baseline rhythm is normal sinus rhythm with average heart rate of 62 bpm ranging from 30 to 94 bpm. There were total of 285 isolated ventricular ectopic beats. There were total of 7882 isolated supraventricular ectopic beats. There was no tachyarrhythmia or atrial fibrillation. Frequent episode of daytime bradycardia were seen with heart rate in the upper 40s and lower 40s longest R to R interval close to 3-second. lowest recorded heart rate was 30 bpm and the rhythm was sinus bradycardia at 7:18 AM. No symptoms were reported by the patient Conclusion 1. Baseline rhythm is sinus with average heart rate of 62 bpm 2. Pattern consistent with sick sinus syndrome with frequent episode of profound bradycardia with heart rate as low as 30 during daytime hours. Longest R to R interval less than 3-second. No symptoms reported by the patient 3. Occasional isolated ventricular ectopic beats 4. Frequent isolated supraventricular ectopic beats 5. Consider EP evaluation for need for pacemaker us Gali Marcus RECONCILIATION MACHINE OPERATOR-INTERNET DEVELOPER [facility] JEANNE Final Result Performing Organization Address City/[facility]/ZIP Co de Phone Number [facility] * (ABNORMAL) NON- HIE Capillary Glucose POC (09/29/2024 11:15 AM EDT) Only the most recent of5 resultswithin the time period is included. Pathologist [facility] NON- HIE GLUCOSE:MCNC:P T:BLD:SEMIQN:T EST STRIP.AUTOMATE D 142(H) 55 - 99 mg/dL [facility] Comment:Notified RN/MD [facility]- Blood 09/29/2024 1 1:15 AM EDT us Gian Lyon DO LAB BLOOD ORDERABLES Final Result Performing Organization Address City/[facility]/ZIP Co de Phone Number [facility] [address] [place] [address], [place] * ECHOCARDIOGRAM (10/23/2021) Narrative 10/23/2021 Ordered by an unspecified provider. us Onbase Conversion CV ECHO PROCEDURES Final Resul t from Last 3 Months or Most Recently Relevant to Health Maintenance Insurance MEDICARE PART A AND B Member Subscriber Plan / Payer (Ef fective 2007-Present) Name:Henry Tapia Member ID:[id number] Relation to Subscriber:Self Name:Henry Tapia Subscriber ID:[id number] Payer ID:Not on file Group ID:Not on file Type:Not on file Address: [address] MEDICARE PART A AND B Member Subscriber Plan / Payer (Ef fective 2007-Present) Name:Henry Tapia Member ID:[id number] Relation to Subscriber:Self Name:Henry Tapia Subscriber ID:[id number] Payer ID:Not on file Group ID:Not on file Type:Not on file Address: [address] Advance Directives For more information, please contact: [phone] (Available ) * Full Code (Latest Code Status on File) Date Activated Date Inactivated Comments 11/30/2024 6:52 AM Question Answer Comments Plan of Care: Code Status Discussion Not Compl eted Decision Maker: Provider Rationale: Patient condition does not warra nt discussion Care Teams Acid Extractor Relationship Specialty Start Date End Date Janusz Schuster MD [address] [facility] [place] [address] PCP - General 07/19/99 Yesenia Drew MD [address] [employer], [facility] [address] [place] [address] Drier Operator Helper Electrophysiology 11/09/24
--- OUTSIDE RECORDS SUMMARY | 2024-12-20 13:31 | XMS_ITS | Encounter Summary ---
Author Organization [facility] Address [address] [place] [address] Phone Care Team Providers Care Diesel Power Mechanic Name Role Phone Janusz Schuster MD Primary Care Provider + -[phone] Yesenia Drew MD Unavailable Encounter Details Date Type Department Care Team (Late st Contact Info) Description 09/29/2024 Scanned Document [facility] [address] [place] [address] Scanning, Generic Provider Social History Tobacco Use Types Packs/Day Years Used Date Smoking Tobacco: Former Cigarettes Smokeless Tobacco: Never Alcohol Use Standard Drinks/Week Comments Not Currently 0 (1 standard drink = 0.6 oz pur e alcohol) SOCIAL X1 YEARLY Sex and Gender Information Value Date Recorded Sex Assigned at Not on file Legal Sex Male 5:06 AM EST Gender Identity Not on file Sexual Orientation Not on file COVID-19 Exposure Response Date Recorded In the last 10 days, have yo u been in contact with someone who was confirmed or suspected to have Coronavirus/COVID-19? No / Unsure 09/14/2024 9:54 AM EST documented as of this encounter Plan of Treatment Upcoming Encounters Date Type Department Care Team (Late st Contact Info) Description 03/09/2025 11:00 AM EDT Appointment [facility] [address] [place] [address] 03/09/2025 11:40 AM EDT Office Visit [facility] [address] [phone] Yesenia Drew MD [address] [facility] Office [facility], [facility] [address] [place] [address] 06/04/2025 10:30 AM EST Office Visit [address] [place] [address] Gali Marcus, STEEL ESTIMATOR-PROJECT ADMIN [address] [facility] [address], [address] [place], [place] [phone] documented as of this encounter Visit Diagnoses Not on filedocumented in this encounter Additional Health Concerns Assessment Noted Time A fall risk assessment has been complete d for the patient 08/28/2024 10:19 AM EST documented as of this encounter Care Teams Diesel Power Mechanic Relationship Specialty Start Date End Date Janusz Schuster MD [address] [place] [address] PCP - General 07/19/99 Yesenia Drew MD [address] [facility], [facility] [address] [place] [address] Wire Drawing Setter Electrophysiology 11/09/24 documented as of this encounter
--- OUTSIDE RECORDS SUMMARY | 2024-12-20 13:31 | XMS_ITS | Clinical Summary ---
Author Organization [facility] Address [id number] [address] [place] [address] Care Team Providers Care Surgery Aid Name Role Phone Unavailable Primary Care Provider Unavailabl e Social History Tobacco Use Types Packs/Day Years Used Date Smoking Tobacco: Never Assessed Childcare Answer Date Recorded Childcare Unknown 12/28/2018 Employment Answer Date Recorded Employment Unknown 12/28/2018 Sex and Gender Information Value Date Recorded Sex Assigned at Not on file Legal Sex Male 11:39 AM EDT Gender Identity Not on file Sexual Orientation Not on file Plan of Treatment Not on file Medical Devices Not on file
--- OUTSIDE RECORDS SUMMARY | 2024-12-20 13:32 | XMS_ITS | Encounter Summary ---
Author Organization [facility] Address [address] [place] [address] Phone Care Team Providers Care Industrial Fabric Cutter Name Role Phone Janusz Schuster MD Primary Care Provider + -[phone] Yesenia Drew MD Unavailable Encounter Details Date Type Department Care Team (Late st Contact Info) Description 09/28/2024 Scanned Document [facility] [address] [place] [address] Scanning, Generic Provider Social History [...] Info) Description 03/09/2025 11:00 AM EDT Appointment [facility] [address] [place] [address] 03/09/2025 11:40 AM EDT Office Visit [facility] [address] [phone] Yesenia Drew MD [address] [facility] Office [facility], [facility] [address] [place] [address] 06/04/2025 10:30 AM EST Office Visit [address] [place] [address] Gali Marcus, DESTINATION IMAGINATION COORDINATOR-ONSITE CASE MANAGER [address] [employer] [address], [address] [place], [place] [phone] documented as of this encounter Visit Diagnoses Not on filedocumented in this encounter Additional Health Concerns Assessment Noted Time A fall risk assessment has been complete d for the patient 08/28/2024 10:19 AM EST documented as of this encounter Care Teams Industrial Fabric Cutter Relationship Specialty Start Date End Date Janusz Schuster MD [address] [facility] [place] [address] PCP - General 07/19/99 Yesenia Drew MD [address] [facility], [facility] [address] [place] [address] Bread Wrapper Operator Electrophysiology 11/09/24 documented as of this encounter
--- OUTSIDE RECORDS SUMMARY | 2024-12-20 13:32 | XMS_ITS | Encounter Summary ---
Author Organization [facility] Address [address] [place] [address] Phone Care Team Providers Care Manager Studio Name Role Phone Janusz Schuster MD Primary Care Provider [phone] Yesenia Drew MD Unavailable Encounter Details Date Type Department Care Team (Late st Contact Info) Description 12/24/2020 Orders Only [facility] [address] [place] [address] Conversion, Onbase Social History Tobacco Use Types [...] Info) Description 03/09/2025 11:[address] [facility] [place] [address] [place] [address] 03/09/2025 11:40 AM EDT Office Visit [facility] [address] [facility] [address] [place] [phone] Yesenia Drew MD [address] [facility] Medical Office Bldg, [address] [place], [place] [phone] 06/04/2025 10:30 AM EST Office Visit [place] [address] [place] [address] Gali Marcus, TAPER PRINTED CIRCUIT LAYOUT-FIRE EQUIPMENT REPAIRER INSPECTOR [address] [facility] [address], [address] [place] [address] Scheduled Orders Name Type Priority Associated Diagnoses Orde r Schedule OUTSIDE LAB SCAN Lab Ordered: 12/24/2020 OUTSIDE LAB SCAN Lab Ordered: 12/24/2020 documented as of this encounter Visit Diagnoses Not on filedocumented in this encounter Care Teams Manager Studio Relationship Specialty Start Date End Date Janusz Schuster MD [address] [facility] [place] [address] PCP - General 07/19/99 Yesenia Drew MD [address] [facility] Medical Office [facility], [address] [place] [address] Roofing Contractor Electrophysiology 11/09/24 documented as of this encounter
--- OUTSIDE RECORDS SUMMARY | 2024-12-20 13:32 | XMS_ITS | Patient Health Record ---
Author Organization [facility] in [place] Address [address] [place] [address] Care Team Providers Care Chemical Sprayer Name Role Phone Ozzy Schuster Primary Care Provider Allergies Allergen (clinical drug ingredient) Drug/Non Drug Allergy documented on EMR Reaction Allergy Type Onset Date Status No Known Allergies (uncoded) Unknown Allergy Active No Known Environment al Allergies (uncoded) Unknown Allergy Active No Known Food Allerg ies (uncoded) Unknown Allergy Active Results Component Value Reference Range Notes PSA SCREENING Reviewed date:04/04/2024 02:34:40 PM Interpretation: Performing Lab: Notes/Report: [facility] , Prostate Specific Antigen Scrn 2.17 <=4.00 ng/ mL Performing Lab: see note ML - [facility] LB CBC AUTO DIFF Reviewed date:04/04/2024 07:38:15 AM Interpretation: Performing Lab: Notes/Report: [facility] , White Blood Count 9.2 4.0-11.0 10 3/uL Red Blood Count 4.09 4.70-6.10 10 6/uL Hemoglobin 13.1 14.0-18.0 g/dL Hematocrit 40.0 42.0-54.0 % Mean Corpuscular Volume 97.8 80.0-94.0 fL Mean Corpuscular Hemoglobin 32.0 25.9-34.0 pg Mean Corpuscular HGB Conc 32.8 29.9-35.2 g/dL Red Cell Distribution Width 14.0 11.0-15.0 % Platelet Count 160 150-450 10 3/uL Mean Platelet Volume 10.0 9.5-13.5 fL Neutrophils Percent Auto 60.4 43.0-75.0 % Lymphocytes Percent Auto 22.7 20.5-60.0 % Monocytes Percent Auto 9.0 1.7-12.0 % Eosinophils Percent Auto 7.0 0.9-7.0 % Basophils Percent Auto 0.7 0.2-2.0 % Immature Granulocytes Pct Auto 0.2 0.0-0.5 % Neutrophils Absolute Auto 5.6 1.4-6.5 10 3/uL Lymphocytes Absolute Auto 2.1 1.2-3.8 10 3/uL Monocytes Absolute Auto 0.8 0.3-0.8 10 3/uL Eosinophils Absolute Auto 0.6 0.0-0.7 10 3/uL Basophils Absolute Auto 0.1 0.0-0.1 10 3/uL Immature Granulocytes Abs Auto 0.02 0.00-0.03 10 3/uL Performing Lab: see note ML - [facility] LB BNP Reviewed date:04/04/2024 02:34:40 PM Interpretation: Performing Lab: Notes/Report: [facility] , NT Pro B Type Natriuretic Pept 376.0 <=1800.0 p g/mL Performing Lab: see note ML - [facility] LB TSH Reviewed date:04/04/2024 02:34:40 PM Interpretation: Performing Lab: Notes/Report: [facility] , Thyroid Stimulating Hormone 2.627 0.358-3.740 u IU/mL Performing Lab: see note ML - [facility] LB T4 Reviewed date:04/04/2024 02:34:40 PM Interpretation: Performing Lab: Notes/Report: [facility] , T4 Thyroxine 5.70 4.50-12.10 ug/dL Performing Lab: see note ML - [facility] LB PROF 14(COMP METB) Reviewed date:04/04/2024 02:34:40 PM Interpretation: Performing Lab: Notes/Report: [facility] , Sodium 145 136-145 mmol/L Potassium 4.5 3.5-5.1 mmol/L Chloride 109 98-107 mmol/L Carbon Dioxide 26.9 21.0-32.0 mmol/L Anion Gap 13.6 Glucose 67 74-106 mg/dL Blood Urea Nitrogen 39.0 7.0-18.0 mg/dL Creatinine 1.78 0.70-1.30 mg/dL Estimated GFR ( Sheeba 44 >=60 Estimated GFR (Non- Hodan 37 >=60 BUN Creatinine Ratio 21.9 Calcium 8.7 8.5-10.1 mg/dL Bilirubin Total 1.4 0.2-1.0 mg/dL Aspartate Amino Transferase 12 15-37 U/L Alanine Aminotransferase 20 16-63 U/L Alkaline Phosphatase 100 46-116 U/L Total Protein 6.5 6.4-8.2 g/dL Albumin Level 3.5 3.4-5.0 g/dL Globulin 3.0 Albumin Globulin Ratio 1.2 Performing Lab: see note ML - [facility] LIPID PROFILE Reviewed date:04/04/2024 02:34:40 PM Interpretation: Performing Lab: Notes/Report: [facility] , Triglycerides 37 <=150 mg/dL Cholesterol <50 <=200 mg/dL HDL Cholesterol 25 40-60 mg/dL > or =60 mg/dl - LOW CARDIOVASCULAR RISK <40 mg/dl - HIGH CARDIOVASCULAR RISK LDL Cholesterol Calculated 18.0 <100 mg/dl OPTIMAL 100-129 mg/dl NEAR OR ABOVE OPTIMAL 130-159 mg/dl BORDERLINE HIGH 160-189 mg/dl HIGH >190 mg/dl VERY HIGH VLDL CHOLESTEROL 7.4 Performing Lab: see note ML - [facility] GLYCOHEMOGLOBIN A1C Reviewed date:04/04/2024 02:34:40 PM Interpretation: Performing Lab: Notes/Report: [facility] , Glycohemoglobin A1C 5.9 4.5-6.2 % ADA RECOMMENDED LIMIT 4.0 - 6.0 ADA THERAPEUTIC TARGET < 7.0 ACTION SUGGESTED > 7.0 Estimated Average Glucose 123 Performing Lab: see note ML - [facility] FREE T3 Reviewed date:04/04/2024 02:34:40 PM Interpretation: Performing Lab: Notes/Report: [facility] , Free T3 2.36 2.18-3.98 pg/mL Performing Lab: see note ML - [facility] Reason For Referral No Information Medications Medication SIG (Take, Route, Frequency, Duration) Notes Start Date End Date Status Isosorbide Mononitrate ER 30 MG TAKE 1 TABLET BY MOUTH EVERY DAY IN THE MORNING FOR 30 DAYS for 30 Active Klor-Con M20 20 MEQ TAKE 1 TABLET BY TWICE A DAY for 90 Active Basaglar KwikPen 100 UNIT/ML Inject 30 units Subcutaneous twice daily for 90 days Active Clopidogrel Bisulfate 75 MG TAKE 1 TABLET BY MOUTH EVERY DAY for 90 Active Lasix 40 MG 1 tablet Orally Once a day 03/30/2024 Active metFORMIN HCl 500 MG TAKE 1 TABLET BY [facility] TW[facility] A [facility] for 90 days Active Lisinopril 2.5 MG 1 tablet Orally Once a day Active Atorvastatin Calcium 40 MG TAKE 1 TABLET BY MOUTH EVERY DAY FOR 90 DAYS for 90 Active Insulin Glargine 100 UNIT/ML Inject 30 units Subcutaneous BID for 90 days 4 boxes 10/19/2024 Active Trelegy Ellipta 100-62.5-25 MCG/ACT 1 puff Inhalation Once a day for 30 days 11/17/2024 Active Immunizations Vaccine Route Administration Date Status Comme nts Flu, Fluad (9277-4199) (79493) 65 yrs+, single-dose syringe IM Intramuscular 04/14/2023 Administered Social History Tobacco Use: Social History Observation Description Date Details (start date - stop date) Former Smoker [birth year]/19/1948 - 07/19/2001 Tobacco Use/Smoking Question Answer Notes Patient is a former smoker When did you start smoking? 07/19/1948 When did you stop smoking? 07/19/2001 How long has it been since you last smoked? > 10 years Alcohol Screen (Audit-C) Question Answer Notes Did you have a drink contain ing alcohol in the past year? Yes How often did you have 6 or more drinks on one occasion in the past year? Never (0 point) How many drinks did you have on a typical day when you were drinking in the past year? 1 or 2 drinks (0 point) How often did you have a dri nk containing alcohol in the past year? Less than monthly (1 point) Points 1 Interpretation Negative AUDIT-C (Standard) Question Answer Notes Did you have a drink containing alcohol in the p ast year? 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) Active confirmed Problem Hyperlipidemia (73048662) Hyperlipidemia (E78.5) Active confirmed Problem Rheumatoid arthritis (55570512) Rheumatoid arthritis (M06.9) Active confirmed Problem COPD - Chronic obstructive pulmonary disease (00101652) COPD (chronic obstructive pulmonary disease) (J44.9) Active confirmed Problem Chronic kidney disease (941220839) Chronic kidney disease (N18.9) Active confirmed Problem Coronary artery disease (15915212) Coronary artery disease (I25.10) Active confirmed Problem Congestive heart failure (66372892) Congestive heart failure (I50.9) Active confirmed Problem Diabetic neuropathy (667576138) Diabetic neuropathy (E11.40) Active confirmed Problem Ventricular hypertrophy (542318168) Ventricular hypertrophy (I51.7) Active confirmed Problem Diverticular disease (657656710) Diverticular disease (K57.90) Active confirmed Problem Cerebral atrophy (952157316) Cerebral atrophy (G31.9) Active confirmed Problem Essential hypertension (88385261) Essential (primary) hypertension (I10) Active confirmed Problem Type II diabetes mellitus without complication (024432208) Type 2 diabetes mellitus without complications (E11.9) Active confirmed Problem Renal cyst (549869381) Renal cyst (N28.1) Active confirmed Problem Benign prostatic hypertrophy without outflow obstruction (394155518) BPH (benign prostatic hypertrophy) (N40.0) Active confirmed Problem Hearing loss (17925598) Hearing deficit, left (H91.92) Active confirmed Problem Type II diabetes mellitus without complication (528160664) Diabetes (E11.9) Active confirmed Vital Signs Blood pressure diastolic 62 mm Hg 10/04/2024 Height 67 in 10/04/2024 Blood pressure systolic 102 mm Hg 10/04/2024 Weight 223 lbs 10/04/2024 BMI 34.92 kg/m2 10/04/2024 Encounters Encounter Location Date Provider Diagnosis [facility] [address] [place] [address] 03/23/2024 [facility] [address] [place] [address] 04/04/2024 [facility] [address] [place] [address] 06/30/2024 [facility] [address] [place] [address] 09/18/2024 Ozzy Schuster [facility] [address] [place] [address] 09/29/2024 Ozzy Schuster [facility] [address] [place] [address] 10/04/2024 Ozzy Schuster [facility] [address] [place] [address] 10/19/2024 Ozzy beto [facility] [address] [place] [address] 11/17/2024 Ozzy beto [facility] [address] [place] [address] 03/30/2024 Ozzy Schuster Congestive heart ksenia lure I50.9 ; Diabetic neuropathy E11.40 ; Hyperlipidemia E78.5 ; BPH (benign prostatic hypertrophy) N40.0 ; COPD (chronic obstructive pulmonary disease) J44.9 and Essential (primary) hypertension [address] [place] [address] 06/29/2024 Ozzy Schuster Chronic kidney disea se N18.9 ; Hyperlipidemia E78.5 ; Diabetes E11.9 ; COPD (chronic obstructive pulmonary disease) J44.9 and Essential (primary) hypertension I10 [address] [address] 10/04/2024 Ozzy Mariely Coronary artery dise ase I25.10 ; Diabetic neuropathy E11.40 ; Diabetes E11.9 ; COPD (chronic obstructive pulmonary disease) J44.9 and Essential (primary) hypertension I10 Assessments Encounter Date Diagnosis (ICD Code) Assessment Notes Treatment Notes Treatment Clinical Notes Section Notes 03/30/2024 Congestive heart failure (ICD-10 - I50.9) 03/30/2024 Diabetic neuropathy (ICD-10 - E11.40) 06/29/2024 Chronic kidney disease (ICD-10 - N18.9) 06/29/2024 Hyperlipidemia (ICD-10 - E78.5) 10/04/2024 Coronary artery disease (ICD-10 - I25.10) 10/04/2024 Diabetic neuropathy (ICD-10 - E11.40) 10/04/2024 Diabetes (ICD-10 - E11.9) 06/29/2024 Diabetes (ICD-10 - E11.9) 03/30/2024 Hyperlipidemia (ICD-10 - E78.5) 03/30/2024 BPH (benign prostatic hypertrophy) (ICD-10 - N40.0) 06/29/2024 COPD (chronic obstructive pulmonary disease) (ICD-10 - J44.9) 10/04/2024 COPD (chronic obstructive pulmonary disease) (ICD-10 - J44.9) 10/04/2024 Essential (primary) hypertension (ICD-10 - I10) 06/29/2024 Essential (primary) hypertension (ICD-10 - I10) 03/30/2024 COPD (chronic obstructive pulmonary disease) (ICD-10 - J44.9) 03/30/2024 Essential (primary) hypertension (ICD-10 - I10) Plan Of Treatment Pending Test Test Name Order Date CMP (COMPLETE METABOLIC PANEL) 3 CMP (COMPLETE METABOLIC PANEL) 4 HEMOGLOBIN A1C (GLYCO) 01/05/2023 HEMOGLOBIN A1C (GLYCO) 03/30/2024 LIPID PANEL (CHOL/TRIG/HDL/LDL) 03/30/20 24 LIPID PANEL (CHOL/TRIG/HDL/LDL) 01/06/20 23 CBC WITH DIFF 01/05/2023 CBC WITH DIFF 03/30/2024 PSA, PROSTATE-SPECIFIC ANTIGEN 3 PSA, TOTAL 03/30/2024 STOOL OCCULT BLOOD 01/05/2023 BNP 01/05/2023 THYROID PANEL (T4/TSH/FREE T3) 3 THYROID PANEL (T4/TSH/FREE T3) 4 ECHOCARDIO M/2D COMPLETE 01/05/2023 Next Appt Details Provider Name:Ozzy Bethanie Schuster, 10:30:00 AM, [address] [facility], [place], [address], Insurance Providers Payer Name Payer Address Payer Phone Subscriber Number Group Number Insured Name Patient Relationship to Insured Coverage Start Date Coverage End Date [place] [address] [place] [address] [phone] [id number] Henry Tapia Self - patient is the insured 7 [facility] [address] [place] [address] [phone] [id number] Henry Tapia Self - patient is the insured 3 Medical (General) History Medical History History ICD Code Other specified arthritis, unspecified h ip M13.859 Coronary artery disease I25.10 Bradycardia R00.1 Chronic kidney disease N18.9 Rheumatoid arthritis M06.9 Congestive heart failure I50.9 Renal cyst N28.1 Eczema L30.9 Phimosis of penis N47.1 Diverticular disease K57.90 Dyspepsia R10.13 COPD (chronic obstructive pulmonary dise ase) J44.9 Colon polyp K63.5 Cerebral atrophy G31.9 Diabetic neuropathy E11.40 Hyperlipidemia E78.5 BPH (benign prostatic hypertrophy) N40.0 Hearing deficit, left H91.92 Diabetes E11.9 Ventricular hypertrophy I51.7 Surgical History Surgery Date(Month/Year) Bladder tumor resection 2021 Right Heart Cath, Dr. Hayes 11/29/20 Circumscion Total knee Arthroscopy bilat Mastoidectomy Cataract Extraction Hospitalization History Reason Date(Month/Year) Bladder Tumor 09/2024
--- OUTSIDE RECORDS SUMMARY | 2024-12-20 13:32 | XMS_ITS | Clinical Summary ---
Author Organization [facility] Address [address] [place] [address] Care Team Providers Care Clinical Appeals Specialist Name Role Phone Janusz Schuster MD Primary Care Provider [phone] Allergies Active Allergy Reactions Criticality Noted Date Comments Indapamide Other: See Comments 02/18/2015 Elevated creatinine Losartan Potassium Other: See Comments 02/19/20 15 Elevated Creatinine Medications INSULIN GLARGINE,HUM.REC .ANLOG (LANTUS SOLOSTAR SUBCUTANEOUS) Inject 100 mg subcutaneou sly. 70 UNITS DAILY Active isosorbide mononitrate ER (IMDUR) 60 mg 24 hr tablet Take 60 mg by mouth once daily. Active aspirin 325 mg tablet Take 325 mg by mouth once daily. Active allopurinol (ZYLOPRIM) 300 mg tablet Take 300 mg by mouth once daily. Active POTASSIUM CITRATE (UROCIT-K 15 ORAL) Take 15 mg by mouth twice daily. Active metoprolol tartrate, short acting, (LOPRESSOR) 50 mg tablet Take 1 tablet by mouth once daily. 02/18/2015 Active atorvastatin (LIPITOR) 40 mg tablet TAKE 1 TABLET BY MOUTH EVERY DAY 90 tablet 3 03/31/2016 Active Active Problems Problem Noted Date Diagnosed Date Abnormal stress test 02/18/2015 CAD (coronary artery disease) 02/18/2015 Resolved Problems Problem Noted Date Diagnosed Date Resolved Date Other dyspnea and respiratory abnormality 02/18/2015 04/21/2016 Family History Medical History Relation Comments Cancer Father bone cancer age 72 Heart Mother PA age 85 Cancer Sister 2 brain cancer Relation Status Comments Father Mother Sister 1 Sister 2 Social History Tobacco Use Types Packs/Day Years Used Date Smoking Tobacco: Former Pipe Smokeless Tobacco: Former Quit: 07/19/1999 Alcohol Use Standard Drinks/Week Comments No 0 (1 standard drink = 0.6 oz pur e alcohol) Sex and Gender Information Value Date Recorded Sex Assigned at Not on file Legal Sex Male 10:29 AM EDT Gender Identity Not on file Sexual Orientation Not on file Occupation Industry Job Start Date Job End Date Retired Not on file Not on file Not on file Last Filed Vital Signs Vital Sign Reading Time Taken Comments Blood Pressure 136/76 02/18/2015 9:17 AM EDT Pulse 48 02/18/2015 9:17 AM EDT Temperature 36 C (96.8 F) 02/18/2015 9:17 AM EDT Respiratory Rate 20 02/18/2015 9:17 AM EDT Oxygen Saturation 95% 02/18/2015 9:17 AM EDT Inhaled Oxygen Concentration - - Weight 112 kg (247 lb) 02/18/2015 9:17 AM EDT Height 170.2 cm (5' 7 ) 02/18/2015 9:17 AM EDT Body Mass Index 38.69 02/18/2015 9:17 AM EDT Plan of Treatment Health Maintenance Due Date Last Done Comments Anxiety Screening 1958 Depression Screening 1958 DTaP,Tdap,Td Vaccine (1 - Tdap) 1958 Diabetes Screening 1984 Pneumococcal Vaccine: 50+ (1 of 1 - PCV) 1989 Shingrix Vaccine (1 of 2) 1989 RSV Vaccine (1 - 1-dose 75+ series) 2014 Covid-19 Vaccine ( - season) 2024 Advance Directive Discussion 07/19/2024 Influenza Vaccine (Season Ended) 2025 Insurance MEDICARE Care Teams Clinical Appeals Specialist Relationship Specialty Start Date End Date Janusz Schuster MD PCP - General Family Medicine 10/17/13
--- OUTSIDE RECORDS SUMMARY | 2024-12-20 13:32 | XMS_ITS | Clinical Summary ---
Author Organization [facility] Address [address] [place] [address] Care Team Providers Care Director Underwriter Sales Name Role Phone Unavailable Primary Care Provider Unavailabl e Social History Tobacco Use Types Packs/Day Years Used Date Smoking Tobacco: Never Assessed Sex and Gender Information Value Date Recorded Sex Assigned at Not on file Legal Sex Male 6:42 PM EDT Gender Identity Not on file Sexual Orientation Not on file Plan of Treatment Not on file
--- OUTSIDE RECORDS SUMMARY | 2024-12-20 13:32 | XMS_ITS | Referral Summary ---
Author Organization [facility] Address [address] [place] [address] Care Team Providers Care Veneer Lathe Operator Name Role Phone Unavailable Primary Care Provider Unavailabl e Medications Medication Sig Dispensed Refills Start Date End Date Status furosemide (Lasix) 40 mg tabletIndications:Hea rt failure, unspecified (CMS/HCC) TAKE 1 TABLET BY MOUTH EVERY DAY IN THE MORNING 90 tablet 3 04/03/2022 Active Social History Tobacco Use Types Packs/Day Years Used Date Smoking Tobacco: Never Assessed [place] Safety & Environment Answer Date Rec orded Fear of Current or Ex-Partner Not on file Emotionally Abused Not on file 09/09/2023 Physically Abused Not on file 09/09/2023 Sexually Abused Not on file 09/09/2023 Physically or Sexually Abused Not on file Sex and Gender Information Value Date Recorded Sex Assigned at Not on file Gender Identity Not on file Sexual Orientation Not on file Last Filed Vital Signs Vital Sign Reading Time Taken Comments Blood Pressure 141/63 09/05/2021 2:07 PM EST Pulse 51 04/24/2021 1:11 PM EDT Temperature 36.3 C (97.4 F) 12/19/2020 2:41 PM EDT Respiratory Rate 16 01/10/2021 11:01 AM EDT Oxygen Saturation 96% 09/05/2021 2:05 PM EST Inhaled Oxygen Concentration - - Weight 101 kg (222 lb) 09/05/2021 2:02 PM EST Height 170.2 cm (5' 7 ) 09/05/2021 2:01 PM EST Body Mass Index 34.77 09/05/2021 2:01 PM EST Plan of Treatment Not on file
--- OUTSIDE RECORDS SUMMARY | 2024-12-20 13:32 | XMS_ITS | Clinical Summary ---
Author Organization [facility] Address [address] [place] [address] Care Team Providers Care Electrical Tryout Person Name Role Phone Unavailable Primary Care Provider [...] 09/05/2021 2:01 PM EST Plan of Treatment Health Maintenance Due Date Last Done Comments Diabetes: Hemoglobin A1C 1940 Medicare Annual Wellness (AWV) 1940 Diabetes: Retinopathy Screening 1949 Depression Screening 1951 Diabetes: Urine Protein Screening 1958 Adult Tetanus 1961 Zoster Vaccines (1 of 2) 1989 Fall Risk Screening 2004 Pneumococcal Vaccine: 65+ Ye ars (1 of 1 - PCV) 2004 COVID-19 Vaccine (1 - 2023-2 5 season) 2024 Influenza Vaccine (Season Ended) 2025 HIB Vaccines Aged Out No longer eligi ble based on patient's age to complete this topic HPV Vaccines Aged Out No longer eligi ble based on patient's age to complete this topic IPV Vaccines Aged Out No longer eligi ble based on patient's age to complete this topic Meningococcal B Vaccine Aged Out No l onger eligible based on patient's age to complete this topic Meningococcal Vaccine Aged Out No diego heather eligible based on patient's age to complete this topic Rotavirus Vaccines Aged Out No longer eligible based on patient's age to complete this topic
--- OUTSIDE RECORDS SUMMARY | 2024-12-20 13:32 | XMS_ITS | Encounter Summary ---
Author Organization [facility] Address [address] [place] [address] Phone Care Team Providers Care Offset Plate Preparation Supervisor Name Role Phone Janusz Schuster MD Primary Care Provider [phone] Yesenia Drew MD Unavailable Encounter Details Date Type Department Care Team (Late st Contact Info) Description 12/20/2024 Telephone [facility] [address] [facility] [address] [place] [address] Naeem High, RN Social History Tobacco Use Types Packs/Day Years [...] PM EDT documented as of this encounter Miscellaneous Notes * Telephone Encounter - Naeem High RN - 12/20/2024 1:10 PM EDT Received call transferred to nurse line from patient daughter, with patient in background. Confirmed by name and . Daughter states that patient has developed facial swelling today, entire face. Has a jennings so hard to tell if chin is swollen. Also patient does not have teeth, so difficult for daughter to tell if jaw and gums are swollen, but states tongue appears normal. Patient had PPM Implant with Dr. Yesenia Drew MD on 11/30/24. Daughter states symptoms did not present until today. I reviewed concern with Lisinopril on board and sudden onset of symptoms- would recommend ER. Patient denies chest pain, shortness of breath, dizziness, new or progressive fatigue or weakness. Unknown to daughter if patient was biten by anything or perhaps having allergy reaction to weather.No new shampoos, conditioners or lotions. Patient will proceed to [facility] ER at this time. Daughter able to drive patient. Report called to ER- nurse at this time. documented in this encounter Plan of Treatment Upcoming Encounters Date Type Department Care Team (Late st Contact Info) Description 03/09/2025 11:00 AM EDT Appointment [facility] [address] [place] [address] 03/09/2025 11:40 AM EDT Office Visit [facility] [address] [facility] [address] [place] [address] Yesenia Drew MD [address] [facility] [address] [place] [address] 06/04/2025 10:30 AM EST Office Visit [address] [place] [address] Gali Marcus, COMPUTER ASSISTANT-PATCH SETTER [address] [facility] [address] [place] [address] documented as of this encounter Visit Diagnoses Not on filedocumented in this encounter Additional Health Concerns Assessment Noted Time A fall risk assessment has been complete d for the patient 10/12/2024 1:44 PM EDT documented as of this encounter Care Teams Offset Plate Preparation Supervisor Relationship Specialty Start Date End Date Janusz Schuster MD [address] [facility] [place] [address] PCP - General 1/1/00 Yesenia Drew MD [address] [facility], [place] [address] Terminologist Electrophysiology 11/09/24 documented as of this encounter
--- OUTSIDE RECORDS SUMMARY | 2024-12-20 13:32 | XMS_ITS | Encounter Summary ---
Author Organization [facility] Address [address] [place] [address] Phone Care Team Providers Care College Intern Name Role Phone Janusz Schuster MD Primary Care Provider [phone] Yesenia Drew MD Unavailable Encounter Details Date Type Department Care Team (Late st Contact Info) Description 10/15/2021 Orders Only [facility] [address] [place] [address] Conversion, Onbase Social History Tobacco Use Types [...] Info) Description 03/09/2025 11:00 AM EDT Appointment [facility] [address] [place] [address] 03/09/2025 11:40 AM EDT Office Visit [facility] [address] [facility] [address] [place] [phone] Yesenia Drew MD [address] [facility] Medical Office Bldg, [address] [place], [place] [id number] 06/04/2025 10:30 AM EST Office Visit [place] [address] [place] [address] Gali Marcus, CARROTING MACHINE OFFBEARER-RANGELAND MANAGEMENT SPECIALIST [address] [facility] [address], [address] [place] [address] Scheduled Orders Name Type Priority Associated Diagnoses Orde r Schedule OUTSIDE LAB SCAN Lab Ordered: 10/15/2021 OUTSIDE LAB SCAN Lab Ordered: 10/15/2021 OUTSIDE LAB SCAN Lab Ordered: 10/15/2021 documented as of this encounter Visit Diagnoses Not on filedocumented in this encounter Care Teams College Intern Relationship Specialty Start Date End Date Janusz Schuster MD [address] [facility] [place] [address] PCP - General 07/19/99 Yesenia Drew MD [address] [facility] Medical Office [facility], [address] [place] [address] Inclusion Teacher Electrophysiology 11/09/24 documented as of this encounter
--- OUTSIDE RECORDS SUMMARY | 2024-12-20 13:32 | XMS_ITS | Encounter Summary ---
Author Organization [facility] Address [address] [place] [address] Phone Care Team Providers Care Credit Checker Name Role Phone Janusz Schuster MD Primary Care Provider [phone] Yesenia Drew MD Unavailable Encounter Details Date Type Department Care Team (Latest Contact Info) Description 12/07/2024 Travel Social History Tobacco Use Types Packs/Day Years [...] PM EDT documented as of this encounter Plan of Treatment Upcoming Encounters Date Type Department Care Team (Late st Contact Info) Description 03/09/2025 11:00 AM EDT Appointment [facility] [address] [place] [address] 03/09/2025 11:40 AM EDT Office Visit [facility] [address] [facility] [address] [place] [phone] Yesenia Drew MD [address] [facility] Medical Office [address], [address] [place], [place] [phone] 06/04/2025 10:30 AM EST Office Visit [facility] [address] [facility] [address] [place] [address] Gali Marcus, SHOE STAMPER-ELECTRICAL PROSPECTING ENGINEER [address] [facility] [address], [address] [place] [address] documented as of this encounter Visit Diagnoses Not on filedocumented in this encounter Additional Health Concerns Assessment Noted Time A fall risk assessment has been complete d for the patient 10/12/2024 1:44 PM EDT documented as of this encounter Care Teams Credit Checker Relationship Specialty Start Date End Date Janusz Schuster MD [address] [facility] [place] [address] PCP - General 07/19/99 Yesenia Drew MD [address] [facility] Medical Office dg, [address] [place] [address] Ground School Instructor Electrophysiology 11/09/24 documented as of this encounter
--- OUTSIDE RECORDS SUMMARY | 2024-12-20 13:32 | XMS_ITS | Encounter Summary ---
Author Organization [facility] Address [address] [facility] [place] [address] Care Team Providers Care Forest Pathology Associate Professor Name Role Phone Unavailable Primary Care Provider Unavailabl e Reason for Visit * Reason Comments Med Refill Encounter Details Date Type Department Care Team (Late st Contact Info) Description 06/26/2023 Refill [facility] [address] [place] [phone] Lilia Ray MD [address] [facility] [place], [place] Heart failure, unspecified (CMS/HCC) Social History Tobacco Use Types Packs/Day Years Used Date Smoking Tobacco: Never Assessed Sex and Gender Information Value Date Recorded Sex Assigned at Not on file Gender Identity Not on file Sexual Orientation Not on file documented as of this encounter Plan of Treatment Not on file documented as of this encounter Visit Diagnoses Diagnosis Heart failure, unspecified (CMS/HCC) Heart failure, unspecified documented in this encounter
[2024-12-20 13:40] VITALS: BP 134/59; PULSE 79; TEMP 36.4; O2SAT 95; BMI 31.3
--- NOTE | 2024-12-20 13:46 | CT_ITS ---
[address] [address] Patient Name: MARTINA DRIVER MRN: [id number] date: 1940 Sex: M Assigned Patient Location: ER Current Patient Location: ER Accession/Order Number: [id number] Exam Date: 12/20/2024 15:35 Report Date: 12/20/2024 15:40 At the request of: SOLANGE LA MD Procedure: CT soft tissue neck wo con CT soft tissue neck wo con 12/20/2024 3:16 PM SIGNS AND SYMPTOMS: facial swelling TECHNIQUE: Multidetector CT axial slices of the soft tissues of the neck were obtained without IV contrast . Sagittal and coronal reformats were reconstructed. CT was performed with one or more of the following dose reduction techniques: Automated exposure control, adjustment of the mA and/or kV according to patient size, or use of iterative reconstruction technique. COMPARISON: None FINDINGS: Soft tissues of the orbits are within normal limits. The soft tissues of the infratemporal fossa fossa structures show no acute abnormality. Mucosal surfaces of the nasopharynx, oropharynx, hypopharynx, glottic, and subglottic airways are grossly unremarkable. There is soft tissue swelling in the left perimandibular subcutaneous soft tissues. The parotid glands, submandibular, and the thyroid gland are within normal limits. Atherosclerotic changes are noted in the aortic arch and at the carotid bifurcations. The visualized lung parenchyma shows no acute pathology. No acute bony abnormalities are appreciated. Degenerative changes are noted in the cervical spine. The skull base, craniocervical junction, atlantoaxial joints are within normal limits. Mild mucosal thickening is noted in the right ethmoid air cells. CT/CT soft tissue neck wo con IMPRESSION: Nonspecific soft tissue swelling is noted in the perimandibular soft tissues on the left. No definite abscess formation. This may represent sequelae of cellulitis. No pathologically enlarged lymph nodes. No evidence of mass. Impression dictated by: Tj Grijalva M.D. 12/20/2024 3:40 PM Dictation Location: [place] [address] Electronically authenticated by: [id number] Y Date: 12/20/2024 15:40
--- NOTE | 2024-12-20 13:54 | ED.GENADUL1 ---
HPI HPI - General Adult General Chief complaint: Skin/Abscess/Foreign Body Stated complaint: FACIAL SWELLING - LEFT SIDE Time Seen by Provider: 12/20/24 13:30 Source: patient and family Mode of arrival: walk-in Limitations: no limitations History of Present Illness HPI narrative: 84-year-old male presents to the emergency department for swelling on the left side of his face. He noticed it this morning. Daughter accompanies him and gives most of the history. He had a pacemaker placed on November 21. He has had no issues with the pacemaker since then. No swelling in the arm. He has no teeth and has no dental pain. There is been no trauma. Related Data Home Medications ?Medication ?Instructions ?Recorded ?Confirmed atorvastatin 40 mg tablet 40 mg PO DAILY 12/20/24 12/20/24 clopidogrel 75 mg tablet 75 mg PO DAILY 12/20/24 12/20/24 fluticasone fur. 100 mcg-umeclid 1 inh inhalation Q24H 12/20/24 12/20/24 62.5 mcg-vilant 25 mcg inhalat.powder (Trelegy Ellipta) furosemide 40 mg tablet 40 mg PO DAILY 12/20/24 12/20/24 insulin glargine 100 unit/mL (3 30 unit subcut BID 12/20/24 12/20/24 mL) subcutaneous pen (Basaglar KwikPen U-100 Insulin) isosorbide mononitrate 30 mg 30 mg PO DAILY 12/20/24 12/20/24 tablet,extended release 24 hr lisinopril 2.5 mg tablet 2.5 mg PO DAILY 12/20/24 12/20/24 metformin 500 mg tablet 500 mg PO BID 12/20/24 12/20/24 potassium chloride 20 mEq 20 meq PO BID 12/20/24 12/20/24 tablet,extended release(part/cryst) (Klor-Con M) Previous Rx's ?Medication ?Instructions ?Recorded cephalexin 500 mg capsule 500 mg PO TID 10 days #30 caps 12/20/24 Allergies Allergy/AdvReac Type Severity Reaction Status Date / Time No Known Drug Allergies Allergy Verified 12/20/24 13:40 Review of Systems ROS Narrative A ten point review of systems is negative except as noted above. PFSH PFSH Social History Little interest or pleasure in doing things: not at all Feeling down, depressed, or hopeless: not at all Exam Narrative Exam Narrative: Nurses note and vital signs reviewed and patient is not hypoxic. General: The patient appears in no apparent distress. Skin: Warm, dry, no pallor noted. There is no rash noted. Head: Normocephalic, atraumatic Eye: Normal conjunctiva, no drainage Ears, Nose, Mouth, and Throat: oral mucosa is moist. Nares patent. He may have some minimal swelling on the left side of his face. He is edentulous. No gingival swelling or erythema. His tongue is not swollen. He has no swelling to the floor of his mouth. Uvula midline. He is handling his oral secretions well. Intraoral exam is normal other than being edentulous. Cardiovascular: Regular Rate and Rhythm. Pacemaker site is healing well with no surrounding erythema. Respiratory: Patient is in no distress, no accessory muscle use, lungs are clear to auscultation, no wheezing, rales or rhonchi Back: non-tender GI: Soft and nontender Musculoskeletal: No joint swelling Neurological: Awake and alert Psychiatric: Cooperative Constitutional Vital Signs, click to edit/add: Last Vital Signs Temp 97.5 F L 12/20/24 13:40 Pulse 76 12/20/24 16:29 Resp 20 12/20/24 13:40 BP 134/59 12/20/24 13:40 Pulse Ox 98 12/20/24 16:29 O2 Del Method Room Air 12/20/24 16:29 Course Vital Signs Vital signs: Vital Signs Temperature 97.5 F L 12/20/24 13:40 Pulse Rate 79 12/20/24 13:40 Respiratory Rate 20 12/20/24 13:40 Blood Pressure 134/59 12/20/24 13:40 Pulse Oximetry 95 12/20/24 13:40 Oxygen Delivery Method Room Air 12/20/24 13:40 Temperature 97.5 F L 12/20/24 13:40 Pulse Rate 76 12/20/24 16:29 Respiratory Rate 20 12/20/24 13:40 Blood Pressure 134/59 12/20/24 13:40 Pulse Oximetry 98 12/20/24 16:29 Oxygen Delivery Method Room Air 12/20/24 16:29 Medical Decision Making MDM Narrative Medical decision making narrative: Blood work is not specific. CT scan per radiologist shows some mild soft tissue swelling. There is no evidence of angioedema or an abscess. He is placed on a course of oral antibiotic and the case was discussed with his PCP. Differential Diagnosis Differential Diagnosis: Abscess, cellulitis, angioedema Lab Data Lab results reviewed: Yes I reviewed the patient's lab results Labs: Lab Results 12/20/24 Range/Units 14:10 WBC 8.5 (4.0-11.0) 10^3/uL RBC 3.67 L (4.70-6.10) 10^6/uL Hgb 11.6 L (14.0-18.0) g/dL Hct 35.3 L (42.0-54.0) % MCV 96.2 H (80.0-94.0) fL MCH 31.6 (25.9-34.0) pg MCHC 32.9 (29.9-35.2) g/dL RDW 14.1 (11.0-15.0) % Plt Count 176 (150-450) 10^3/uL MPV 10.2 (9.5-13.5) fL Neut % (Auto) 59.5 (43.0-75.0) % Lymph % (Auto) 19.3 L (20.5-60.0) % Marshall % (Auto) 9.4 (1.7-12.0) % Eos % (Auto) 11.2 H (0.9-7.0) % Baso % (Auto) 0.5 (0.2-2.0) % Neut # (Auto) 5.1 (1.4-6.5) 10^3/uL Lymph # (Auto) 1.7 (1.2-3.8) 10^3/uL Marshall # (Auto) 0.8 (0.3-0.8) 10^3/uL Eos # (Auto) 1.0 H (0.0-0.7) 10^3/uL Baso # (Auto) 0.0 (0.0-0.1) 10^3/uL Abs Immat Gran (auto) 0.01 (0.00-0.03) 10^3/uL Imm/Tot Granulo (auto) 0.1 (0.0-0.5) % Sodium 143 (136-145) mmol/L Potassium 5.2 H (3.5-5.1) mmol/L Chloride 107 (98-107) mmol/L Carbon Dioxide 25.9 (21.0-32.0) mmol/L Anion Gap 15.3 BUN 46.0 H (7.0-18.0) mg/dL Creatinine 2.02 H (0.70-1.30) mg/dL Est GFR ( Amer) 38 L (>=60 mL/min/1.73m^2) Est GFR (Non-Af Amer) 32 L (>=60 mL/min/1.73m^2) BUN/Creatinine Ratio 22.8 Glucose 161 H (74-106) mg/dL Calcium 8.8 (8.5-10.1) mg/dL Imaging Data CT neck: Radiologist's impression: ITS Impressions Soft Tissue Neck CT 12/20/24 13:46 IMPRESSION: Nonspecific soft tissue swelling is noted in the perimandibular soft tissues on the left. No definite abscess formation. This may represent sequelae of cellulitis. No pathologically enlarged lymph nodes. No evidence of mass. Impression dictated by: Tj Grijalva M.D. 12/20/2024 3:40 PM Dictation Location: [place] [address] Electronically authenticated by: [id number] Y Date: 12/20/2024 15:40 Discharge Plan Discharge Chief Complaint: Skin/Abscess/Foreign Body Clinical Impression: Localized soft tissue swelling Patient Disposition: Home, Self-Care Time of Disposition Decision: 15:55 Condition: Good Mode of Transportation: Private Vehicle Prescriptions / Home Meds: New cephalexin 500 mg capsule 500 mg PO TID 10 Days Qty: 30 0RF No Action atorvastatin 40 mg tablet 40 mg PO DAILY clopidogrel 75 mg tablet 75 mg PO DAILY Trelegy Ellipta 100-62.5-25 mcg blister with device 1 inh INHALATION Q24H furosemide 40 mg tablet 40 mg PO DAILY insulin glargine [Basaglar KwikPen U-100 Insulin] 100 unit/mL (3 mL) insulin pen 30 unit SUBCUT BID isosorbide mononitrate 30 mg tablet extended release 24 hr 30 mg PO DAILY lisinopril 2.5 mg tablet 2.5 mg PO DAILY metformin 500 mg tablet 500 mg PO BID potassium chloride [Klor-Con M20] 20 mEq tablet,ER particles/crystals 20 meq PO BID Print Language: Martiniquais Instructions: Mouth Care (ED) Referrals: Janusz Schuster MD [Primary Care Provider, Family Practice] - 1 week Discharge Date/Time: 12/20/24 16:30
[2024-12-20 14:26] LABS: Basophils Percent Auto 0.5 % (0.2-2.0); Eosinophils Percent Auto 11.2 % (0.9-7.0); Hematocrit 35.3 % (42.0-54.0); Hemoglobin 11.6 g/dL (14.0-18.0); Immature Granulocytes Abs Auto 0.01 10^3/uL (0.00-0.03); Immature Granulocytes Pct Auto 0.1 % (0.0-0.5); Lymphocytes Absolute Auto 1.7 10^3/uL (1.2-3.8); Lymphocytes Percent Auto 19.3 % (20.5-60.0); Mean Corpuscular HGB Conc 32.9 g/dL (29.9-35.2); Mean Corpuscular Hemoglobin 31.6 pg (25.9-34.0); Mean Corpuscular Volume 96.2 fL (80.0-94.0); Mean Platelet Volume 10.2 fL (9.5-13.5); Monocytes Absolute Auto 0.8 10^3/uL (0.3-0.8); Monocytes Percent Auto 9.4 % (1.7-12.0); Neutrophils Absolute Auto 5.1 10^3/uL (1.4-6.5); Neutrophils Percent Auto 59.5 % (43.0-75.0); Platelet Count 176 10^3/uL (150-450); Red Blood Count 3.67 10^6/uL (4.70-6.10); Red Cell Distribution Width 14.1 % (11.0-15.0); White Blood Count 8.5 10^3/uL (4.0-11.0)
[2024-12-20 14:40] LABS: Anion Gap 15.3; BUN Creatinine Ratio 22.8; Calcium 8.8 mg/dL (8.5-10.1); Carbon Dioxide 25.9 mmol/L (21.0-32.0); Chloride 107 mmol/L (98-107); Estimated GFR (African America 38 (>=60 mL/min/1.73m^2); Estimated GFR (Non-African Ame 32 (>=60 mL/min/1.73m^2); Glucose 161 mg/dL (74-106); Potassium 5.2 mmol/L (3.5-5.1); Sodium 143 mmol/L (136-145)
[2024-12-20 16:29] VITALS: PULSE 76; O2SAT 98
== END 2024-12-20 16:30 | disposition home or self-care (01) ==
PROVIDERS: Emergency Provider Emergency Medicine; PCP Family Medicine
DX: R22.0 Localized swelling, mass and lump, head (principal); Z95.0 Presence of cardiac pacemaker
CPT/HCPCS: 36415; 70490; 80048; 85025; 99284

== ENCOUNTER 2025-04-17 07:52 | Outpatient (OUT) | payer MEDICARE, SELFPAY ==
--- OUTSIDE RECORDS SUMMARY | 2025-03-09 11:22 | XMS_ITS ---
Author Name Auto Generated Organization OHIP Care Team Providers Care [employer] Name Role Phone Shaun WORLEY Attending Unavailable Shaun WORLEY Attending Unavailable Gian Lyon Admitting Unavailable Gian Lyon Attending Unavailable Shaun WORLEY P Referring Unavailable Gian Lyon Admitting Unavailable Gian Lyon Attending Unavailable COOKJackShaun P Referring Unavailable COOKJackShaun P Attending Unavailable COOK, Shaun P Admitting Unavailable COOK, Shaun P Attending Unavailable COOK, Shaun P Referring Unavailable COOK, Shaun P Admitting Unavailable COOK, Shaun P Attending Unavailable COOK, Shaun P Referring Unavailable COOK, Shaun P Admitting Unavailable COOK, Shaun P Attending Unavailable COOK, Shaun P Referring Unavailable COOK, Shaun P Admitting Unavailable COOK, Shaun P Attending Unavailable MARY CRANE Attending Unavailable HOYCHAYAJANUSZ IRENE Primary Care Unavailable ELNA VEGA Attending Unavailable LEMUEL STEVENS Referring Unavailable HOY, JANUSZ IRENE Primary Care Unavailable LENA VEGA Referring Unavailable HOY, JANUSZ IRENE Primary Care Unavailable LENA VEGA Attending Unavailable HOY, JANUSZ IRENE Primary Care Unavailable LENA VEGA Referring Unavailable HOY, JANUSZ IRENE Primary Care Unavailable MARY CRANE Attending Unavailable LENA VEGA Referring Unavailable HOY, JANUSZ IRENE Primary Care Unavailable HOY, JANUSZ IRENE Primary Care Unavailable MARY CRANE Admitting Unavailable MARY CRANE Attending Unavailable HOY, JANUSZ IRENE Primary Care Unavailable HOY, JANUSZ IRENE Primary Care Unavailable MARY CRANE Referring Unavailable HOY, JANUSZ IRENE Primary Care Unavailable CHRISSY SINHA Referring Unavailable HOY, JANUSZ IRENE Primary Care Unavailable CHRISSY SINHA Referring Unavailable HODen, JANUSZ IRENE Primary Care Unavailable PROBLEMS DATE TYPE CONDITION / CODE ATTENDING STATUS [facility] 03/09/2025 Admitting Diagnosis Body mass index (BMI) 34.0-34.9, adult / Z68.34(ICD-10) [facility] 11/21/2024 Admitting Diagnosis Sick sinus syndrome (Multi) / I49.5(ICD-10) [facility] 11/21/2024 Admitting Diagnosis Other specified heart block / I45.5(ICD-10) [facility] 11/21/2024 Admitting Diagnosis Other specified counseling / Z71.89(ICD-10) [facility] 11/21/2024 Admitting Diagnosis Personal history of nicotine dependence / Z87.891(ICD-10) [facility] 06/25/2023 Admitting Diagnosis Atherosclerotic heart disease of [place] coronary artery without angina pectoris / I25.10(ICD-10) [facility] 03/09/2025 Admitting Diagnosis Presence of cardiac pacemaker / Z95.0(ICD-10) [facility] 11/21/2024 Admitting Diagnosis Bradycardia, unspecified / R00.1(ICD-10) [facility] 11/21/2024 Admitting Diagnosis Persons encountering health services in other specified circumstances / Z76.89(ICD-10) MARY CRANE [facility] 06/25/2023 Admitting Diagnosis Shortness of breath / R06.02(ICD-10) MARY CRANE [facility] 10/12/2024 Admitting Diagnosis Body mass index (BMI) 35.0-35.9, adult / Z68.35(ICD-10) [facility] 06/25/2023 Admitting Diagnosis Type 2 diabetes mellitus without complications / E11.9(ICD-10) [facility] 09/28/2024 Unknown R00.1 / R00.1(ICD-10) Gian Lyon [facility] 08/28/2024 Admitting Diagnosis Body mass index (BMI) 36.0-36.9, adult / Z68.36(ICD-10) [facility] 06/25/2023 Admitting Diagnosis Mixed hyperlipidemia / E78.2(ICD-10) [facility] 06/25/2023 Admitting Diagnosis Type 2 diabetes mellitus without complications (Multi) / E11.9(ICD-10) [facility] 06/25/2023 Admitting Diagnosis half-way (current) use of insulin (Multi) / Z79.4(ICD-10) [facility] PROCEDURES No Procedure Records Found RESULTS XR CHEST 2 VIEWS Observed: 03/09/2025 11:01 AM Status: F Source: [facility] Order Comment: Report to [facility] registration on 03/09/2025 at 10 AM for chest x-ray and device check prior to appointment with Dr. Crane in the [facility] at 11:40 AM Interpreted By: Aditya Claudio , STUDY: XR CHEST 2 VIEWS INDICATION: Signs/Symptoms:pacemaker. COMPARISON: None ACCESSION NUMBER(S): [id number] ORDERING CLINICIAN: CHRISSY SINHA FINDINGS: Cardiomegaly with pacemaker. No consolidation, effusion, edema, or pneumothorax is identified. IMPRESSION: No evidence of acute intrathoracic abnormality. Signed by: Aditya Claudio 03/10/2025 9:57 AM Dictation workstation: [id number] PUMA Observed: 11/30/2024 12:43 PM Status: F Source: [facility]_IDC_DEV_MODEL [id number] [place] XT DR MRI [facility]_IDC_DEV_SERIAL [id number] [facility]_IDC_SESS_CLINIC_NAME [facility] [place] [facility]_IDC_LEAD_MODEL [id number] CapSureFix Novus MRI SureScan [facility]_IDC_LEAD_SERIAL [id number] [facility]_IDC_LEAD_LOCATION_DETAIL_1 MID [facility]_IDC_LEAD_SPECIAL_FUNCTION 45 [facility]_IDC_LEAD_MODEL 5076 CapSureFix Novus MRI SureScan [facility]_IDC_LEAD_SERIAL [id number] [facility]_LEAD_LOCATION_DETAIL_1 SEPTUM [facility]_LEAD_SPECIAL_FUNCTION 52 [facility]_IDC_SET_BRADY_HYSTRATE DISABLED MDT_PROG_BRADY_PMT_INTERVENTION ENABLED MDT_PROG_BRADY_PVC_RESPONSE ENABLED MDT_PROG_BRADY_RATEMODULATION_THRESHOLD Low MDT_PROG_BRADY_RATEMODULATION_SLOPE 3 MDT_PROG_BRADY_RATEMODULATION_SLOPE_EXERTION 3 MDT_PROG_BRADY_RATEMODULATION_DECELERATIONRECOVERY Exercise MDT_PROG_BRADY_AVDELAY_ADAPTIVE_STATUS DISABLED MDT_PROG_BRADY_AUTOMATICEMODESWITCH_STATUS ENABLED MDT_PROG_BRADY_POLARITYCONFIGURATION_RA_SENSING_PATHWAY_SUMMARY RA-Tip to RA-Ring MDT_PROG_BRADY_REFRACTORYPERIOD_PREVIOUSEVENTCHAMBER_RA VENTRICLE MDT_PROG_BRADY_REFRACTORYPERIOD_INTERVAL_RA Auto MDT_PROG_BRADY_BLANKINGPERIOD_PREVIOUSEVENTCHAMBER_RA VENTRICLE MDT_PROG_BRADY_BLANKINGPERIOD_EVENTTYPE_RA SENSE_OR_PACE MDT_PROG_BRADY_BLANKINGPERIOD_PREVIOUSEVENTCHAMBER_RA RIGHT_ATRIUM MDT_PROG_BRADY_BLANKINGPERIOD_EVENTTYPE_RA PACE MDT_PROG_BRADY_BLANKINGPERIOD_PREVIOUSEVENTCHAMBER_RA RIGHT_ATRIUM MDT_PROG_BRADY_BLANKINGPERIOD_EVENTTYPE_RA SENSE MDT_PROG_BRADY_POLARITYCONFIGURATION_RV_SENSING_PATHWAY_SUMMARY RV-Tip to RV-Ring MDT_PROG_BRADY_BLANKINGPERIOD_PREVIOUSEVENTCHAMBER_RV VENTRICLE MDT_PROG_BRADY_BLANKINGPERIOD_EVENTTYPE_RV PACE MDT_PROG_BRADY_BLANKINGPERIOD_PREVIOUSEVENTCHAMBER_RV VENTRICLE MDT_PROG_BRADY_BLANKINGPERIOD_EVENTTYPE_RV SENSE MDT_PROG_BRADY_POLARITYCONFIGURATION_RA_PACING_PATHWAY_SUMMARY RA-Tip to RA-Ring MDT_PROG_BRADY_POLARITYCONFIGURATION_RV_PACING_PATHWAY_SUMMARY RV-Tip to RV-Ring MDC_IDC_SET_ZONE_TYPE ATRIAL_FIBRILLATION MDT_PROG_TACHY_ZONE_DETECTIONS_RATESTABILITY_STATUS DISABLED MDT_PROG_TACHY_ZONE_THERAPIES_SUMMARY Monitored Monitored MDT_STAT_LEADS_LOWPOWERCHANNEL_RA_IMPEDANCES_POLE_TYPE ANODE CATHODE ANODE CATHODE MDT_STAT_LEADS_LOWPOWERCHANNEL_RA_SENSITIVITIES_POLE_TYPE ANODE CATHODE MDT_STAT_LEADS_LOWPOWERCHANNEL_RV_IMPEDANCES_POLE_TYPE ANODE CATHODE ANODE CATHODE MDT_STAT_LEADS_LOWPOWERCHANNEL_RV_SENSITIVITIES_POLE_TYPE ANODE CATHODE MDC_IDC_MSMT_BATTERY_STATUS OK MDC_IDC_MSMT_BATTERY_RRT_TRIGGER 2.625 MDT_EVALUATION_MISCELLANEOUSCOMMENT DUAL LEAD PACEMAKER EVALUATION: PREDISCHARGE FOLLOW UP\X0A\ALERT: NONE\X0A\IMPLANT SITE: IMPLANT SITE WITH [facility] D&I; NO REDNESS, SWELLING, OR HEMATOMA NOTED; ARM IMMOBILIZER MAINTAINED; ICE PACK TO SITE\X0A\PRESENTING RHYTHM: /VS\X0A\LEAD: SENSING, CAPTURE THRESHOLDS, & LEAD IMPEDANCES WNL\X0A\COUNTERS SINCE: IMPLANT\X0A\ATRIAL ARRHYTHMIAS: 0 AT/AF EPISODES; 0% AT/AF BURDEN\X0A\VENTRICULAR ARRHYTHMIAS: 0 VENT DETECTIONS\X0A\Rx FOLLOW UP IN CLINIC & REMOTELY NEEDED: NEXT REMOTE 01/11/25.\X0A\DGERDING RN ECG 12-LEAD Observed: 11/30/2024 10:05 AM Status: F Source: [facility] Ventricular Rate 68 Atrial Rate 68 P-R Interval 208 QRS Duration 112 Q-T Interval 400 QTC Calculation(Bazett) 425 P Harrison 12 R Harrison -50 T Harrison 5 QRS Count 11 Q Onset 213 P Onset 109 P Offset 175 T Offset 413 QTC Fredericia 417 Diagnosis Normal sinus rhythm Left axis deviation Septal infarct , age undetermined Abnormal ECG When compared with ECG of 30-NOV-2024 06:51, (unconfirmed) Septal infarct is now Present Confirmed by Mejia Gallardo ([id number]) on 12/01/2024 11:08:43 PM COMPLETE BLOOD COUNT PANEL Collected: 11/30/2024 6:53 AM Status: F Source: [facility] TYPE CODE TESTS RESULT OUT OF RANGE REFERENCE UNITS LAB 6690-2(LOINC) Leukocytes 8.2 4.4-11.3 x10*3/ uL LAB 59810-1(LOINC) Erythrocytes.nuc l eated/100 leukocytes 0.0 0.0-0.0 /100 WBCs LAB 789-8(LOINC) Erythrocytes 4.06 Low 4.50-5.90 x10* 6/uL LAB 718-7(LOINC) Hemoglobin 12.7 Low 13.5-17.5 g/dL LAB 4544-3(LOINC) Hematocrit 38.9 Low 41.0-52.0 % LAB 787-2(LOINC) Erythrocyte mean corpuscular volume 96 80-100 fL LAB 785-6(LOINC) Erythrocyte mean corpuscular hemoglobin 31.3 26.0-34.0 pg LAB 786-4(LOINC) Erythrocyte mean corpuscular hemoglobin concentration 32.6 32.0-36.0 g/dL LAB 788-0(LOINC) Erythrocyte distribution width 14.1 11.5-14.5 % LAB 777-3(LOINC) Platelets 162 150-450 x10*3/uL Performed By: #### [id number] # ### THU SANCHEZ ([id number]) [facility] ([facility]) [address] [place] [address] PT Collected: 05/15/202 5 6:53 AM Status: F Source: [facility] Order Comment: The APTT is n o longer used for monitoring Unfractionated Heparin Therapy. For monitoring Heparin Therapy, use the Heparin Assay. TYPE CODE TESTS RESULT OUT OF RANGE REFERENCE UNITS LAB 5902-2(LOINC) Coagulation tissue factor induced 12.6 High 9.8-12.4 seconds LAB 6301-6(LOINC) Coagulation tissue factor induced.INR 1.1 0.9-1.1 NA LAB 49713-4(LOINC) Coagulation surface induced 29 26-36 seconds Performed By: #### [id number] # ### THU SANCHEZ ([id number]) [facility] ([facility]) [address] [place] [address] BASIC METABOLIC 2000 PANEL Collected: 0 11/30/2024 6:53 AM Status: F Source: [facility] TYPE CODE TESTS RESULT OUT OF RANGE REFERENCE UNITS LAB 2345-7(LOINC) Glucose 103 High 74-99 mg/dL LAB 2951-2(LOINC) Sodium 141 136-145 mmol/L LAB 2823-3(LOINC) Potassium 4.9 3.5-5.3 mmol/L LAB 2075-0(LOINC) Chloride 109 High 98-107 mmol/L LAB 8-9(LOINC) Carbon dioxide 22 21-32 mmo l/L LAB 42667-4(LOINC) Anion gap 15 10-20 mmol/L LAB 3094-0(LOINC) Urea nitrogen 53 High 6-23 mg/d L LAB 2160-0(LOINC) Creatinine 2.11 High 0.50-1.30 mg/dL LAB 26862-3(LOINC) Glomerular filtration rate/1.73 sq M.predicted 30 Low >60 mL/min/1 .73m*2 Result Comment: Calculations of estimated GFR are performed using the 2020 CKD- EPI Study Refit equation without the race variable for the IDMS-Traceable creatinine methods. https://jasn.asnjournals.org/content/early//ASN.9586568050 LAB 50462-1(LOINC) Calcium 8.9 8.6-10.3 mg/dL Performed By: #### 45573-4 # ### THU SANCHEZ ([id number]) [facility] ([facility]) [address] [place] [address] ECG 12-LEAD Observed: 11/30/2024 6:51 AM Status: F Source: [facility] Ventricular Rate 78 Atrial Rate 78 P-R Interval 190 QRS Duration 110 Q-T Interval 384 QTC Calculation(Bazett) 437 P Harrison 43 R Harrison -53 T Harrison 48 QRS Count 13 Q Onset 211 P Onset 116 P Offset 176 T Offset 403 QTC Fredericia 419 Diagnosis Normal sinus rhythm Left axis deviation Incomplete left bundle branch block Abnormal ECG No previous ECGs available Confirmed by Mejia Gallardo ([id number]) on 12/01/2024 11:05:14 PM COAGULATION TISSUE FACTOR INDUCED Collected: 11/21/2024 8:14 AM Status: F Source: [facility] TYPE CODE TESTS RESULT OUT OF RANGE REFERENCE UNITS LAB 5902-2(LOINC) Coagulation tissue factor induced 12.9 High 9.8-12.4 seconds LAB 6301-6(LOINC) Coagulation tissue factor induced.INR 1.2 High 0.9-1.1 NA Performed By: #### 5902-2 ## ## THU SANCHEZ ([id number]) [facility] ([facility] [address] [place] [address] COMPLETE BLOOD COUNT PANEL Collected: 11/21/2024 8:14 AM Status: F Source: [facility] TYPE CODE TESTS RESULT OUT OF RANGE REFERENCE UNITS LAB 6690-2(LOINC) Leukocytes 9.5 4.4-11.3 x10*3/ uL LAB 82924-3(LOINC) Erythrocytes.nuc l eated/100 leukocytes 0.0 0.0-0.0 /100 WBCs LAB 789-8(LOINC) Erythrocytes 4.04 Low 4.50-5.90 x10* 6/uL LAB 718-7(LOINC) Hemoglobin 12.5 Low 13.5-17.5 g/dL LAB 4544-3(LOINC) Hematocrit 38.6 Low 41.0-52.0 % LAB 787-2(LOINC) Erythrocyte mean corpuscular volume 96 80-100 fL LAB 785-6(LOINC) Erythrocyte mean corpuscular hemoglobin 30.9 26.0-34.0 pg LAB 786-4(LOINC) Erythrocyte mean corpuscular hemoglobin concentration 32.4 32.0-36.0 g/dL LAB 788-0(LOINC) Erythrocyte distribution width 14.3 11.5-14.5 % LAB 777-3(LOINC) Platelets 174 150-450 x10*3/uL Performed By: #### 09665-3 # ### THU SANCHEZ ([id number]) [facility] ([facility]) [address] [place] [address] BASIC METABOLIC 2000 PANEL Collected: 0 11/21/2024 8:14 AM Status: F Source: [facility] TYPE CODE TESTS RESULT OUT OF RANGE REFERENCE UNITS LAB 2345-7(LOINC) Glucose 95 74-99 mg/dL LAB 2951-2(LOINC) Sodium 143 136-145 mmol/L LAB 2823-3(LOINC) Potassium 5.1 3.5-5.3 mmol/L LAB 2075-0(LOINC) Chloride 111 High 98-107 mmol/L LAB 2028-9(LOINC) Carbon dioxide 23 21-32 mmo l/L LAB 29669-1(LOINC) Anion gap 14 10-20 mmol/L LAB 3094-0(LOINC) Urea nitrogen 47 High 6-23 mg/d L LAB 2160-0(LOINC) Creatinine 1.73 High 0.50-1.30 mg/dL LAB 25743-0(LOINC) Glomerular filtration rate/1.73 sq M.predicted 38 Low >60 mL/min/1 .73m*2 Result Comment: Calculations of estimated GFR are performed using the 2020 CKD- EPI Study Refit equation without the race variable for the IDMS-Traceable creatinine methods. 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1940 Visit Date:10/10/2024 Ambulatory Visit Instructions Your Care Team Primary Care Physician - Janusz Schuster MD This Is Your Medications List acetaminophen (acetaminophen 325 mg Tab) aspirin (aspirin 81 mg Oral EC Tab) atorvastatin (Lipitor 40 mg Tab) clopidogrel (clopidogrel 75 mg Tab) fluticasone/umeclidinium/vilanterol (Trelegy Ellipta 100 mcg-62.5 mcg-25 mcg inhalation powder) furosemide (furosemide 40 mg Tab) insulin glargine (Basaglar KwikPen 100 units/mL subcutaneous solution) isosorbide mononitrate (isosorbide mononitrate 30 mg ER Tab) lisinopril (lisinopril 2.5 mg Tab) potassium chloride (Klor-Con M20) Procedures Performed TURBT - Transurethral resection of bladder tumor (09/28/2024), Cystoscopy (09/18/2024), Cystoscopy (04/26/2023), Cystoscopy (01/29/2022), TURBT - Transurethral resection of bladder tumor (10/23/2021), Circumcision (12/13/2019), Colonoscopy (03/09/2016), Cystoscopy and transurethral resection of bladder tumour (12/06/2014), Cystoscopy (11/20/2014), Lithotripsy (01/30/2010), Colonoscopy (06/05/2009), Arthroscopy of knee, Cardiac catheterization, Cataract extraction and insertion of intraocular lens, Knee derangement......, Mastoidectomy, Placement of stent in cardiac conduit, Total knee replacement.. Medications What How Much When Instructions Unchanged acetaminophen (acetaminophen 325 mg Tab) 2 Tablets By Mouth Every 6 hours as needed for Pain Unchanged aspirin (aspirin 81 mg Oral EC Tab) 1 Tablets By Mouth Every day Unchanged atorvastatin (Lipitor 40 mg Tab) 1 Tablets By Mouth Once a day (at bedtime) Unchanged clopidogrel (clopidogrel 75 mg Tab) 1 Tablets By Mouth Every day Unchanged fluticasone/ umeclidinium/ vilanterol (Trelegy Ellipta 100 mcg-62.5 mcg-25 mcg inhalation powder) 1 Puffs Inhalation Every day Unchanged furosemide (furosemide 40 mg Tab) 1 Tablets By Mouth Every day Unchanged insulin glargine (Basaglar KwikPen 100 units/ mL subcutaneous solution) 30 unit Subcutaneous 2 times a day Unchanged isosorbide mononitrate (isosorbide mononitrate 30 mg ER Tab) 1 Tablets By Mouth Once a day (in the morning) Unchanged lisinopril (lisinopril 2.5 mg Tab) 1 Tablets By Mouth Every day Unchanged potassium chloride (Klor-Con M20) 20 Milliequivalent By Mouth 2 times a day Allergies No Known Allergies No Known Medication Allergies Problems Ongoing - Any problem that you are currently receiving treatment for. 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 tract symptoms Bilateral renal atrophy Bladder mass Bladder tumor BMI 37.0-37.9, adult Bradycardia BXO (balanitis xerotica obliterans) CAD (coronary artery disease) Calciphylaxis Cardiomegaly Cerebral atrophy Chronic cystitis Chronic obstructive pulmonary disease CKD (chronic kidney disease) Congestive heart failure Deafness Diabetes Diabetic neuropathy Diverticular disease Dysuria Former pipe smoker Glucosuria Gross hematuria Headaches due to old head injury Heart disease History of bladder cancer History of colon polyps Hyperlipidemia Hypertension Impotence Isolated proteinuria Kidney stones Lesion of bladder Microscopic hematuria Morbid obesity Nocturia Penile edema Personal history of kidney stones Phimosis Positive fecal occult blood test Postprocedural fossa navicularis urethral stricture Proteinuria Rheumatoid arthritis Smoker SOB (shortness of breath) UTI (urinary tract infection) Ventricular hypertrophy Weak urinary stream Wound of skin Historical - Any problem that you are no longer receiving treatment for. Anticoagulant long-term use Anticoagulated Ex-cigarette smoker Patient Survey You may receive a survey via text or e-mail asking about your office visit. Please share your experience with us by completing your survey. We appreciate your feedback and thank you for choosing us for your care. PATIENT EDUCATION Observed: 10/10/2024 2:30 PM Status: F Source: [facility] Patient Education Urology Cystoscopy Cystoscopy is a procedure that is used to help diagnose and sometimes treat conditions that affect the lower urinary tract. The lower urinary tract includes the bladder and the urethra. The urethra is the tube that drains urine from the bladder. Cystoscopy is done using a thin, tube-shaped instrument with a light and camera at the end (cystoscope). The cystoscope may be hard or flexible, depending on the goal of the procedure. The cystoscope is inserted through the urethra, into the bladder. Cystoscopy may be recommended if you have: ??? Urinary tract infections that keep coming back. ??? Blood in the urine (hematuria). ??? An inability to control when you urinate (urinary incontinence) or an overactive bladder. ??? Unusual cells found in a urine sample. ??? A blockage in the urethra, such as a urinary stone. ??? Painful urination. ??? An abnormality in the bladder found during an intravenous pyelogram (IVP) or CT scan. Cystoscopy may also be done to remove a sample of tissue to be examined under a microscope (biopsy). Tell a health care provider about: ??? Any allergies you have. ??? All medicines you are taking, including vitamins, herbs, eye drops, creams, and mnlt-phv-axpxaaz medicines. ??? Any problems you or family members have had with anesthetic medicines. ??? Any blood disorders you have. ??? Any surgeries you have had. ??? Any medical conditions you have. ??? Whether you are or may be . What are the risks? Generally, this is a safe procedure. However, problems may occur, including: ??? Infection. ??? Bleeding. ??? Allergic reactions to medicines. ??? Damage to other structures or organs. What happens before the procedure? Medicines Ask your health care provider about: ??? Changing or stopping your regular medicines. This is especially important if you are taking diabetes medicines or blood thinners. ??? Taking medicines such as aspirin and ibuprofen. These medicines can thin your blood. Do not take these medicines unless your health care provider tells you to take them. ??? Taking rnht-xsz-yvusumf medicines, vitamins, herbs, and supplements. Tests You may have an exam or testing, such as: ??? X-rays of the bladder, urethra, or kidneys. ??? CT scan of the abdomen or pelvis. ??? Urine tests to check for signs of infection. General instructions ??? Follow instructions from your health care provider about eating or drinking restrictions. ??? Ask your health care provider what steps will be taken to help prevent infection. These steps may include: ? Washing skin with a germ-killing soap. ? Taking antibiotic medicine. ??? Plan to have a responsible adult take you home from the hospital or clinic. What happens during the procedure? You will be given one or more of the following: ? A medicine to help you relax (sedative). ? A medicine to numb the area (local anesthetic). ??? The area around the opening of your urethra will be cleaned. ??? The cystoscope will be passed through your urethra into your bladder. ??? Germ-free (sterile) fluid will flow through the cystoscope to fill your bladder. The fluid will stretch your bladder so that your health care provider can clearly examine your bladder [place]. ??? Your doctor will look at the urethra and bladder. Your doctor may take a biopsy or remove stones. ??? The cystoscope will be removed, and your bladder will be emptied. The procedure may vary among health care providers and hospitals. What can I expect after the procedure? After the procedure, it is common to have: ??? Some soreness or pain in your abdomen and urethra. ??? Urinary symptoms. These include: ? Mild pain or burning when you urinate. Pain should stop within a few minutes after you urinate. This may last for up to 1 week. ? A small amount of blood in your urine for several days. ? Feeling like you need to urinate but producing only a small amount of urine. Follow these instructions at home: Medicines ??? Take omuh-zmb-jmltljz and prescription medicines only as told by your health care provider. ??? If you were prescribed an antibiotic medicine, take it as told by your health care provider. Do not stop taking the antibiotic even if you start to feel better. General instructions ??? Return to your normal activities as told by your health care provider. Ask your health care provider what activities are safe for you. ??? If you were given a sedative during the procedure, it can affect you for several hours. Do not drive or operate machinery until your health care provider says that it is safe. ??? Watch for any blood in your urine. If the amount of blood in your urine increases, call your health care provider. ??? Follow instructions from your health care provider about eating or drinking restrictions. ??? If a tissue sample was removed for testing (biopsy) during your procedure, it is up to you to get your test results. Ask your health care provider, or the department that is doing the test, when your results will be ready. ??? Drink enough fluid to keep your urine pale yellow. ??? Keep all follow-up visits. This is important. Contact a health care provider if: ??? You have pain that gets worse or does not get better with medicine, especially pain when you urinate. ??? You have trouble urinating. ??? You have more blood in your urine. Get help right away if: ??? You have blood clots in your urine. ??? You have abdominal pain. ??? You have a fever or chills. ??? You are unable to urinate. Summary ??? Cystoscopy is a procedure that is used to help diagnose and sometimes treat conditions that affect the lower urinary tract. ??? Cystoscopy is done using a thin, tube-shaped instrument with a light and camera at the end. ??? After the procedure, it is common to have some soreness or pain in your abdomen and urethra. ??? Watch for any blood in your urine. If the amount of blood in your urine increases, call your health care provider. ??? If you were prescribed an antibiotic medicine, take it as told by your health care provider. Do not stop taking the antibiotic even if you start to feel better. This information is not intended to replace advice given to you by your health care provider. Make sure you discuss any questions you have with your health care provider. Document Revised: 03/18/2022 Document Reviewed: 02/14/2021 [employer] Patient Education ? 2023 [employer]. UROLOGY OFFICE/CLINIC NOTE Observed: 1:44 PM Status: F Source: [facility] Urology Office/Clinic Note Chief Complaint follow up TURBT HPI Staff Here to review path from s/p cysto, TURBT, fulguration 09/28/24. Cath removed 10/05/24. *no uro meds denies any urinary issues IPSS 8 History of Present Illness Tests reviewed: reviewed UA and path. I have reviewed the previous health record information and history for this patient from Dr. Worley I have reviewed and verified the staff HPI to be accurate for this encounter. There have been no associated fever, chills, flank pain, or blood in the urine. Denies any urinary infections since last encounter. Review of Systems PHQ Score Initial Depression Screen Score: 0 SCORE ROS - Provider Constitutional: denies weight loss, denies hot flashes. Eyes: denies eye problems. Gastrointestinal: denies nausea, denies vomiting. Cardiovascular: denies chest pain or angina. Integumentary: no dryness Musculoskeletal: denies musculoskeletal symptoms. ENMT: denies otolaryngeal symptoms. Respiratory: no shortness of breath. Heme/Lymph: denies easy bleeding tendency, denies easy bruising tendency. Psychiatric: no confusion, no anxiety. Genitourinary: See HPI. Physical Exam Vitals & Measurements HR: 50(Peripheral) RR: 18 BP: 140/50 HT: 170 cm HT: 67 in WT: 229.28 lb WT: 104 kg BMI: 35.99 General Appearance: alert, no distress, well nourished, well developed male. Assessment/Plan Portions of this record may have been created with voice recognition artificial intelligence software, specifically [employer], [employer] and or [employer]. Substitutions may have occurred due to the inherent limitations of voice recognition and artificial intelligence software. 1. Lesion of bladder (N32.9: Bladder disorder, unspecified) S/p cysto 09/18/24 - The Prostatic Urethra is: 3 cm long, moderate lateral lobe. The Bladder: retained urine, small area of micropapillary tumor, left anterior, 5 mm, 1 cm area lateral to th FISH/cytology 09/18/24 - FISH neg, cytology atypical. S/p cysto, TURBT, two 5 mm lesions, extensive fulguration 09/28/24. [place]verde removed 10/05/24. Path ~flat urothelial lesion of atpyia of unknown significance. No muscularis propria present. Results discussed with pt. IPSS 8 (5) UA today shows moderate blood and trace leuks. No urinary concerns. Given negative path, will schedule cysto for #2 in 1 year. -Cysto/FISH/cytology 09/2025 2. History of bladder cancer (Z85.51: Personal history of malignant neoplasm of bladder) S/p Cysto 10/31/2020, TURBT 10/23/2021. Completed BCG #6 of 6 on 12/30/2021. There was mention for pt to complete BCG 06/2022, however this was not done. S/p cysto 04/26/23 - bladder is abnormal, moderate (2) trabeculation with old scar, no recurrence of bladder cancer. 11/01/23 ~Reviewing her previous operative note reveals that the patient actually refused further intravesical BCG. After discussing with the patient's daughter they do however agree to proceed with repeat cystoscopy at this time. FISH/cytology 11/01/23 - negative. S/p cysto w/ bladder wash 11/18/23 - moderately obstructing, 3.5 cm long gland with mainly lateral lobe hypertrophy and a moderately high riding bladder neck. Retained urine. Old scar across the base of the bladder. Neg for b.t. Fairly prominent bladder diverticulum anteriorly. FISH/cytology 11/18/23 - negative. -See #1 The patient is quite happy to hear that his bladder pathology is negative for malignancy. There were some atypical cells but the pathologist states this is of uncertain clinical significance. At this point I feel this justifies only a 1 year follow-up cystoscopy and he agrees with the plan. Will send antibiotic prophylaxis in preparation for his next cystoscopy. This will occur at the time of scheduling. Follow-up With When Contact Information BRUNILDA PURCELL, Shaun De La Cruz, URL [address] [address]- Additional Instructions: Cysto/FISH/cytol in 1 year Patient Education Cystoscopy Rosita Ford, personally scribed for Dr. Worley on 10/10/2024 14:32:23. . Documentation recorded by the scribe, Rosita Alexander, accurately reflects the services(s) I performed and decisions made by me. Authenticated by Dr. Worley on 10/10/2024 14:33:18. Problem List/Past Medical History Ongoing 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 tract symptoms Bilateral renal atrophy Bladder mass Bladder tumor BMI 37.0-37.9, adult Bradycardia BXO (balanitis xerotica obliterans) CAD (coronary artery disease) Calciphylaxis Cardiomegaly Cerebral atrophy Chronic cystitis Chronic obstructive pulmonary disease CKD (chronic kidney disease) Congestive heart failure Deafness Diabetes Diabetic neuropathy Diverticular disease Dysuria Former pipe smoker Glucosuria Gross hematuria Headaches due to old head injury Heart disease History of bladder cancer History of colon polyps Hyperlipidemia Hypertension Impotence Isolated proteinuria Kidney stones Lesion of bladder Microscopic hematuria Morbid obesity Nocturia Penile edema Personal history of kidney stones Phimosis Positive fecal occult blood test Postprocedural fossa navicularis urethral stricture Proteinuria Rheumatoid arthritis Smoker SOB (shortness of breath) UTI (urinary tract infection) Ventricular hypertrophy Weak urinary stream Wound of skin Historical Anticoagulant long-term use Anticoagulated Ex-cigarette smoker Procedure/Surgical History TURBT - Transurethral resection of bladder tumor (09/28/2024), Cystoscopy (09/18/2024), Cystoscopy (04/26/2023), Cystoscopy (01/29/2022), TURBT - Transurethral resection of bladder tumor (10/23/2021), Circumcision (12/13/2019), Colonoscopy (03/09/2016), Cystoscopy and transurethral resection of bladder tumour (12/06/2014), Cystoscopy (11/20/2014), Lithotripsy (01/30/2010), Colonoscopy (06/05/2009), Arthroscopy of knee, Cardiac catheterization, Cataract extraction and insertion of intraocular lens, Knee derangement......, Mastoidectomy, Placement of stent in cardiac conduit, Total knee replacement.. Medications acetaminophen 325 mg Tab, 650 mg= 2 tab(s), Oral, q6hr, PRN aspirin 81 mg Oral EC Tab, 81 mg= 1 tab(s), Oral, Daily Basaglar KwikPen 100 units/mL subcutaneous solution, 30 unit, SubCutaneous, BID clopidogrel 75 mg Tab, 75 mg= 1 tab(s), Oral, Daily furosemide 40 mg Tab, 40 mg= 1 tab(s), Oral, Daily isosorbide mononitrate 30 mg ER Tab, 30 mg= 1 tab(s), Oral, qAM Klor-Con M20, 20 mEq, Oral, BID Lipitor 40 mg Tab, 40 mg= 1 tab(s), Oral, Once a day (at bedtime) lisinopril 2.5 mg Tab, 2.5 mg= 1 tab(s), Oral, Daily Trelegy Ellipta 100 mcg-62.5 mcg-25 mcg inhalation powder, 1 puff(s), Inhalation, Daily Allergies No Known Allergies No Known Medication Allergies Social History Alcohol - Denies Alcohol Use, 03/05/2015 Current, Beer, 1-2 times per year, 09/20/2024 Substance Abuse - Denies Substance Abuse, 03/05/2015 Tobacco - Denies Tobacco Use, 03/05/2015 Cigars or pipes but not daily within last 30 days, Smoker, current status unknown Tobacco Use:. Never Smokeless Tobacco Use:. Pipe, Yes, 10/10/2024 Family History Asthma: Mother. Cancer: Father. Congenital heart disease: Mother. Hypertension: Mother. Immunizations Vaccine Date Status Comments BCG 12/30/2021 Given BCG 12/23/2021 Given BCG 12/18/2021 Given BCG 12/16/2021 Given BCG 12/02/2021 Given BCG 11/18/2021 Given SARS-CoV-2 (COVID-19) Ad26 vaccine - Not Given Patient Refuses BCG 11/11/2021 Given influenza virus vaccine, inactivated 05/07/2021 Recorded influenza virus vaccine, inactivated 04/18/2021 Recorded influenza virus vaccine, inactivated 04/2020 Recorded influenza virus vaccine, inactivated 04/11/2020 Recorded influenza virus vaccine, inactivated 06/17/2017 Recorded influenza, unspecified formulation 05/20/2016 Recorded Lab Results Ambulatory Point of Care Results Bilirubin Urine Dipstick: Negative (10/10/24 14:07:00) Blood Urine Dipstick: 2+ Moderate (10/10/24 14:07:00) Glucose Urine Dipstick: Negative (10/10/24 14:07:00) Ketones Urine Dipstick: Negative (10/10/24 14:07:00) Leukocytes Urine Dipstick: Trace (10/10/24 14:07:00) Nitrite Urine Dipstick: Negative (10/10/24 14:07:00) Protein Urine Dipstick: 1+ (30 mg/dl) (10/10/24 14:07:00) Specific Herman Urine Dipstick: 1.010 (10/10/24 14:07:00) Urine Appearance Urine Dipstick: Clear (10/10/24 14:07:00) Urine Color Urine Dipstick: Yellow (10/10/24 14:07:00) Urobilinogen Urine Dipstick: Normal 0.2-1 EU/dl (10/10/24 14:07:00) pH Urine Dipstick: 5.5 (10/10/24 14:07:00) Result Comment: Electronical ly Signed By: Shaun WORLEY MD\.br\Date and Time Signed: 10/10/24 14:34 EDT\.br\Electronically Co-Signed By: Rosita Alexander.br\Date and Time Co-Signed: 10/10/24 14:32 EDT INPATIENT PATIENT SUMMARY Observed: 09/16 11:55 AM Status: C Source: [facility] Inpatient Patient Summary [place] [address] Patient Discharge Instructions PERSON INFORMATION Name: MARTINA DRIVER Date of : 1940 Current Date: 09/29/2024 11:55:41 PHYSICIANS Admitting Physician: Gian Lyon DO Primary Care Physician: Janusz Schuster MD PCP Comment: Discharge Diagnosis: 2:Bladder tumor; 3:CAD (coronary artery disease); 4:Congestive heart failure; 5:Chronic obstructive pulmonary disease; 6:CKD (chronic kidney disease); 7:Diabetes; 8:Diabetic neuropathy; 9:Obesity Condition at Discharge: Stable MARTINA DRIVER has been given the following list of follow-up instructions, prescriptions, and patient education materials: PATIENT FOLLOW-UP INFORMATION Diet: Regular Discharge Activity: Ambulate as tolerated Discharge Restrictions: Wound Care Instructions: Remove Your Dressing In Days Call Your Doctor For: IF UNABLE TO CONTACT YOUR PHYSICIAN AND YOU FEEL IT IS AN EMERGENCY, GO TO THE NEAREST EMERGENCY ROOM OR CALL 911 Home Treatment: Devices/Equipment: Special Services: Additional Instructions: Leg bag for your catheter once discharged. Please call Dr Worley office to make arrangements for the catheter removal next week and subsequently discuss with you the pathology report. Call [facility] for follow up apt Follow up with PCP Primary Care Physician to provide the following pending test results: Other: Pathology report from urologic procedure, results to be discussed at apt with Dr Worley Follow up: With: Address: When: Janusz Schuster MD [address] [place] [id number] 10/04/2024 1:00 PM With: Address: When: Shaun MUNROE, [address], [address] [address] [facility] (1) 10/10/2024 2:15 PM Comments: Leg bag for your catheter at this and I will subsequently discuss with you the pathology report. With: Address: When: Lilian PURCELL, Lemuel De La Cruz [address] [facility] [address] [place] [address] 10/12/2024 2:00 PM Comments: Will be Lena Schwartz NP at this appointment. In the event that this physician does not participate in your insurance network, please consult with your insurance company to find a nearby participating provider. Type Location Start Finish State [facility]RO Office Visit [facility] [place] [facility] [place] 10/10/2024 2:15 PM 10/10/2024 2:30 PM Confirmed Comment: NEISHA Ford DAVID R, have received the attached patient education materials/instructions and have verbalized understanding: Patient Signature Date Clinican/Nurse Signature Date HERE ARE THE MEDICATION CHANGES THAT OCCURRED DURING YOUR HOSPITAL STAY New Medications Other Medications acetaminophen (acetaminophen 325 mg Tab) 2 Tablets By Mouth every 6 hours as needed Pain. Last Dose: Next Dose: Medications to Continue with No Changes Other Medications aspirin (aspirin 81 mg Oral EC Tab) 1 Tablets By Mouth every day. Last Dose: Next Dose: atorvastatin (Lipitor 40 mg Tab) 1 Tablets By Mouth once a day (at bedtime). Last Dose: Next Dose: clopidogrel (clopidogrel 75 mg Tab) 1 Tablets By Mouth every day. Last Dose: Next Dose: fluticasone/umeclidinium/vilanterol (Trelegy Ellipta 100 mcg-62.5 mcg-25 mcg inhalation powder) 1 Puffs Inhalation every day. Last Dose: Next Dose: furosemide (furosemide 40 mg Tab) 1 Tablets By Mouth every day. Last Dose: Next Dose: insulin glargine (Basaglar KwikPen 100 units/mL subcutaneous solution) 30 unit Subcutaneous 2 times a day. Last Dose: Next Dose: isosorbide mononitrate (isosorbide mononitrate 30 mg ER Tab) 1 Tablets By Mouth once a day (in the morning). Last Dose: Next Dose: lisinopril (lisinopril 2.5 mg Tab) 1 Tablets By Mouth every day. Last Dose: Next Dose: potassium chloride (Klor-Con M20) 20 Milliequivalent By Mouth 2 times a day. Last Dose: Next Dose: No Longer Take the Following Medications metformin 500 Milligram By Mouth 2 times a day. Comment: MEDICATION LIST PROVIDED FOR YOU IS A LIST OF YOUR CURRENT MEDICATIONS. PLEASE CARRY THIS WITH YOU AT ALL TIMES. acetaminophen (acetaminophen 325 mg Tab) 2 Tablets By Mouth every 6 hours as needed Pain. aspirin (aspirin 81 mg Oral EC Tab) 1 Tablets By Mouth every day. atorvastatin (Lipitor 40 mg Tab) 1 Tablets By Mouth once a day (at bedtime). clopidogrel (clopidogrel 75 mg Tab) 1 Tablets By Mouth every day. fluticasone/umeclidinium/vilanterol (Trelegy Ellipta 100 mcg-62.5 mcg-25 mcg inhalation powder) 1 Puffs Inhalation every day. furosemide (furosemide 40 mg Tab) 1 Tablets By Mouth every day. insulin glargine (Basaglar KwikPen 100 units/mL subcutaneous solution) 30 unit Subcutaneous 2 times a day. isosorbide mononitrate (isosorbide mononitrate 30 mg ER Tab) 1 Tablets By Mouth once a day (in the morning). lisinopril (lisinopril 2.5 mg Tab) 1 Tablets By Mouth every day. potassium chloride (Klor-Con M20) 20 Milliequivalent By Mouth 2 times a day. Pharmacy Information: [facility] [place] Comment: PATIENT EDUCATION INFORMATION Instructions: Bradycardia, Adult Bradycardia is a tsdfaw-ntoc-avihaq heartbeat. A normal resting heart rate for an adult ranges from 60 to 100 beats per minute. With bradycardia, the resting heart rate is less than 60 beats per minute. Bradycardia can prevent enough oxygen from reaching certain areas of your body when you are active. It can be serious if it keeps enough oxygen from reaching your brain and other parts of your body. Bradycardia is not a problem for everyone. For some healthy adults, a slow resting heart rate is normal. What are the causes? This condition may be caused by: ??? A problem with the heart, including: ? A problem with the heart's electrical system, such as a heart block. With a heart block, electrical signals between the chambers of the heart are partially or completely blocked, so they are not able to work as they should. ? A problem with the heart's natural pacemaker (sinus node). ? Heart disease. ? A heart attack. ? Heart damage. ? Lyme disease. ? A heart infection. ? A heart condition that is present at (congenital heart defect). ??? Certain medicines that treat heart conditions. ??? Certain conditions, such as hypothyroidism and obstructive sleep apnea. ??? Problems with the balance of chemicals and other substances, like potassium, in the blood. ??? Trauma. ??? Radiation therapy. What increases the risk? You are more likely to develop this condition if you: ??? Are age 65 or older. ??? Have high blood pressure (hypertension), high cholesterol (hyperlipidemia), or diabetes. ??? Drink heavily, use tobacco or nicotine products, or use drugs. What are the signs or symptoms? Symptoms of this condition include: ??? Light-headedness. ??? Feeling faint or fainting. ??? Fatigue and weakness. ??? Trouble with activity or exercise. ??? Shortness of breath. ??? Chest pain (angina). ??? Drowsiness. ??? Confusion. ??? Dizziness. How is this diagnosed? This condition may be diagnosed based on: ??? Your symptoms. ??? Your medical history. ??? A physical exam. During the exam, your health care provider will listen to your heartbeat and check your pulse. To confirm the diagnosis, your health care provider may order tests, such as: ??? Blood tests. ??? An electrocardiogram (ECG). This test records the heart's electrical activity. The test can show how fast your heart is beating and whether the heartbeat is steady. ??? A test in which you wear a portable device (event recorder or Holter monitor) to record your heart's electrical activity while you go about your day. ??? An exercise test. How is this treated? Treatment for this condition depends on the cause of the condition and how severe your symptoms are. Treatment may involve: ??? Treatment of the underlying condition. ??? Changing your medicines or how much medicine you take. ??? Having a small, battery-operated device called a pacemaker implanted under the skin. When bradycardia occurs, this device can be used to increase your heart rate and help your heart beat in a regular rhythm. Follow these instructions at home: Lifestyle ??? Manage any health conditions that contribute to bradycardia as told by your health care provider. ??? Follow a heart-healthy diet. A nutrition assistant (dietitian) can help educate you about healthy food options and changes. ??? Follow an exercise program that is approved by your health care provider. ??? Maintain a healthy weight. ??? Try to reduce or manage your stress, such as with yoga or meditation. If you need help reducing stress, ask your health care provider. ??? Do not use any products that contain nicotine or tobacco. These products include cigarettes, chewing tobacco, and vaping devices, such as e-cigarettes. If you need help quitting, ask your health care provider. ??? Do not use illegal drugs. Alcohol use If you drink alcohol: ??? Limit how much you have to: ? 0?1 drink a day for women who are not . ? 0?2 drinks a day for men. ??? Know how much alcohol is in a drink. In the [place] one drink equals one 12 oz bottle of beer (355 mL), one 5 oz glass of wine (148 mL), or one 1? oz glass of hard liquor (44 mL). General instructions ??? Take cmkq-hly-agdacba and prescription medicines only as told by your health care provider. ??? Keep all follow-up visits. This is important. How is this prevented? In some cases, bradycardia may be prevented by: ??? Treating underlying medical problems. ??? Stopping behaviors or medicines that can trigger the condition. Contact a health care provider if: ??? You feel light-headed or dizzy. ??? You almost faint. ??? You feel weak or are easily fatigued during physical activity. ??? You experience confusion or have memory problems. Get help right away if: ??? You faint. ??? You have chest pains or an irregular heartbeat (palpitations). ??? You have trouble breathing. These symptoms may represent a serious problem that is an emergency. Do not wait to see if the symptoms will go away. Get medical help right away. Call your local emergency services (911 in the [place] Do not drive yourself to the hospital. Summary ??? Bradycardia is a uoehva-tlwv-ydnxut heartbeat. With bradycardia, the resting heart rate is less than 60 beats per minute. ??? Treatment for this condition depends on the cause. ??? Manage any health conditions that contribute to bradycardia as told by your health care provider. ??? Do not use any products that contain nicotine or tobacco. These products include cigarettes, chewing tobacco, and vaping devices, such as e-cigarettes. ??? Keep all follow-up visits. This is important. This information is not intended to replace advice given to you by your health care provider. Make sure you discuss any questions you have with your health care provider. Document Revised: 10/26/2021 Document Reviewed: 10/26/2021 [employer] Patient Education ? 2023 [employer] Medication Leaflets: You may receive a survey from [employer] asking you to rate your care experience. Your feedback is important and will help us understand what we do well and how we can improve the quality of care we provide to you, your loved ones and our community. It???s an honor to serve you. Thank you for choosing [facility] INPATIENT CLINICAL SUMMARY Observed: 11:55 AM Status: C Source: [facility] Inpatient Clinical Summary [address] [address] Clinical Summary Person Information: Name: MARTINA DRIVER Age: 84 Years : 1940 Sex: Male PCP: Janusz Schuster MD Marital Status: Race: White Ethnicity: Non- or Language: Omani Visit Id: Visit Reason: BLADDER TUMOR, HISTORY OF BLADDER CANCER Speciality: Acuity: Enc Type: Outpatient in a Bed Med Service: Surgery Arrival: 09/28/2024 09:20:43 Discharge: Dispo Type: Address: [address] [place] [id number] Provider Notes: Diagnosis: 2:Bladder tumor; 3:CAD (coronary artery disease); 4:Congestive heart failure; 5:Chronic obstructive pulmonary disease; 6:CKD (chronic kidney disease); 7:Diabetes; 8:Diabetic neuropathy; 9:Obesity Problems Active Bladder mass History of bladder cancer Positive fecal occult blood test Morbid obesity BMI 37.0-37.9, adult Cardiomegaly History of colon polyps Bradycardia Chronic obstructive pulmonary disease Rheumatoid arthritis Cerebral atrophy Diverticular disease Ventricular hypertrophy Diabetic neuropathy Congestive heart failure CAD (coronary artery disease) UTI (urinary tract infection) Gross hematuria Bladder tumor 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 urinary tract symptoms Microscopic hematuria Phimosis Proteinuria Bilateral renal atrophy Kidney stones Dysuria BXO (balanitis xerotica obliterans) Calciphylaxis CKD (chronic kidney disease) Postprocedural fossa navicularis urethral stricture Penile edema Wound of hide and skin classer pipe smoker Impotence Weak urinary stream Hyperlipidemia Heart disease Headaches due to old head injury Deafness Arthritis Personal history of kidney stones Isolated proteinuria Glucosuria Nocturia Chronic cystitis SOB (shortness of breath) Hypertension Diabetes Smoking Status: Functional Status: Sensory Deficits: History of Falls: Mobility Assistance Prior to Admission: ADLs: Current Level of Assistance for Self-Care/Mobility: Cognitive Status: Allergies No Known Medication Allergies No Known Allergies Measurements: Height: 170.18 cm Weight: 106.7 kg Blood Pressure: 164 mmHg / 70 mmHg BMI: 36.91 kg/m2 Procedures TURBT - Transurethral resection of bladder tumor (09/28/2024) Immunizations No Immunizations Documented This Visit Final Med List: acetaminophen (acetaminophen 325 mg Tab) 2 Tablets By Mouth every 6 hours as needed Pain. aspirin (aspirin 81 mg Oral EC Tab) 1 Tablets By Mouth every day. atorvastatin (Lipitor 40 mg Tab) 1 Tablets By Mouth once a day (at bedtime). clopidogrel (clopidogrel 75 mg Tab) 1 Tablets By Mouth every day. fluticasone/umeclidinium/vilanterol (Trelegy Ellipta 100 mcg-62.5 mcg-25 mcg inhalation powder) 1 Puffs Inhalation every day. furosemide (furosemide 40 mg Tab) 1 Tablets By Mouth every day. insulin glargine (Basaglar KwikPen 100 units/mL subcutaneous solution) 30 unit Subcutaneous 2 times a day. isosorbide mononitrate (isosorbide mononitrate 30 mg ER Tab) 1 Tablets By Mouth once a day (in the morning). lisinopril (lisinopril 2.5 mg Tab) 1 Tablets By Mouth every day. potassium chloride (Klor-Con M20) 20 Milliequivalent By Mouth 2 times a day. Care Team Members: Attending Physician: Gian Lyon DO Consulting Physician: Referring Physician: Shaun WORLEY MD Follow up: With: Address: When: Mariely PURCELL, Janusz [facility] [facility] [address] 10/04/2024 1:00 PM With: Address: When: Shaun WORLEY [address] [place] [address], [address] [address] [facility] (1) 10/10/2024 2:15 PM Comments: Leg bag for your catheter at this and I will subsequently discuss with you the pathology report. With: Address: When: Lilian PURCELL, Lemuel De La Cruz [address] [place] [address] [place] [address] 10/12/2024 2:00 PM Comments: Will be Lena Schwartz CONVOLUTE TUBE WINDER at this appointment. Type Location Start Finish State URO Office Visit [facility] [place] 10/10/2024 2:15 PM 10/10/2024 2:30 PM Confirmed Patient Education Information: Bradycardia, Adult DISCHARGE NOTE-NURSING Observed: 025 11:55 AM Status: F Source: [facility] Discharge Note-Nursing MARTINA DRIVER :1940 Visit Date:09/28/2024 Inpatient Discharge Instructions Your Care Team Admitting Physician - Gian Lyon DO Referring Physician - Shaun WORLEY MD Reason for Your Visit BLADDER TUMOR, HISTORY OF BLADDER CANCER Your Diagnosis Bradycardia Bladder tumor CAD (coronary artery disease) Congestive heart failure Chronic obstructive pulmonary disease CKD (chronic kidney disease) Diabetes Diabetic neuropathy Obesity This Is Your Medications List acetaminophen (acetaminophen 325 mg Tab) aspirin (aspirin 81 mg Oral EC Tab) atorvastatin (Lipitor 40 mg Tab) clopidogrel (clopidogrel 75 mg Tab) fluticasone/umeclidinium/vilanterol (Trelegy Ellipta 100 mcg-62.5 mcg-25 mcg inhalation powder) furosemide (furosemide 40 mg Tab) insulin glargine (Basaglar KwikPen 100 units/mL subcutaneous solution) isosorbide mononitrate (isosorbide mononitrate 30 mg ER Tab) lisinopril (lisinopril 2.5 mg Tab) potassium chloride (Klor-Con M20) [Image Removed: STOP]Stop taking these medications metformin Procedure History TURBT - Transurethral resection of bladder tumor (09/28/2024), Cystoscopy (09/18/2024), Cystoscopy (04/26/2023), Cystoscopy (01/29/2022), TURBT - Transurethral resection of bladder tumor (10/23/2021), Circumcision (12/13/2019), Colonoscopy (03/09/2016), Cystoscopy and transurethral resection of bladder tumour (12/06/2014), Cystoscopy (11/20/2014), Lithotripsy (01/30/2010), Colonoscopy (06/05/2009), Arthroscopy of knee, Cardiac catheterization, Cataract extraction and insertion of intraocular lens, Knee derangement......, Mastoidectomy, Placement of stent in cardiac conduit, Total knee replacement.. Discharge Vitals Temperature (Oral) 36.6 ???C Heart Rate (Peripheral) 58 Respiratory Rate 18 Blood Pressure 164/70 Height 170.18 cm Weight 106.7 kg BMI 36.91 What to do next Instructions From Your Doctor Event Name Event Result Discharge Activity Ambulate as tolerated Discharge Diet(s) Regular Pending Diagnostic Test Results Other: Pathology report from urologic procedure, results to be discussed at FU apt with Dr Worley Discharge Instructions Leg bag for your catheter once discharged. Please call Dr Worley office to make arrangements for the catheter removal next week and subsequently discuss with you the pathology report.Call [facility] office for follow up aptFollow up with PCP Previously Scheduled Follow-Up Appointments Wednesday 2:15 PM EDT With: Shaun WORLEY MD Where: [facility] [place] [address] [facility] [place] [address]- New Follow Up Appointments after Discharge Follow Up with Lemuel Stevens MD When: 10/12/2024 02:00 PM EDT Comments: Will be Lena Schwartz CONVOLUTE TUBE WINDER at this appointment. Where: [address] [facility] [address] [place] [address]- Follow Up with Shaun WORLEY When: 10/10/2024 02:15 PM EDT Comments: Leg bag for your catheter at this and I will subsequently discuss with you the pathology report. Where: [address] [place], [place] [address] [address] [facility] [address] [place] [address]- Business (1) Follow Up with Janusz Schuster MD When: 10/04/2024 01:00 PM EDT Where: [address] [facility] [place] [address]- Medications What How Much When Instructions Next Dose New acetaminophen (acetaminophen 325 mg Tab) 2 Tablets By Mouth Every 6 hours as needed for Pain As needed Unchanged aspirin (aspirin 81 mg Oral EC Tab) 1 Tablets By Mouth Every day Resume 09/30/2024 Unchanged atorvastatin (Lipitor 40 mg Tab) 1 Tablets By Mouth Once a day (at bedtime) Tonight at bedtime Unchanged clopidogrel (clopidogrel 75 mg Tab) 1 Tablets By Mouth Every day Resume 09/30/2024 Unchanged fluticasone/ umeclidinium/ vilanterol (Trelegy Ellipta 100 mcg-62.5 mcg-25 mcg inhalation powder) 1 Puffs Inhalation Every day Resume 09/30/2024 Unchanged furosemide (furosemide 40 mg Tab) 1 Tablets By Mouth Every day 09/30/2024 Unchanged insulin glargine (Basaglar KwikPen 100 units/ mL subcutaneous solution) 30 unit Subcutaneous 2 times a day Tonight at 9:00 PM Unchanged isosorbide mononitrate (isosorbide mononitrate 30 mg ER Tab) 1 Tablets By Mouth Once a day (in the morning) 09/30/2024 Unchanged lisinopril (lisinopril 2.5 mg Tab) 1 Tablets By Mouth Every day 09/30/2024 Unchanged potassium chloride (Klor-Con M20) 20 Milliequivalent By Mouth 2 times a day Resume tonight at 9:00 PM What How Much When Comments Stop Taking metformin 500 Milligram By Mouth 2 times a day Test Results CBC BMP WBC: 10.7 E9/L (09/29/24 06:17:00) Glucose Lvl: 169 mg/dL (09/29/24 06:17:00) RBC: 4 E12/L Low (09/29/24 06:17:00) BUN: 41 mg/dL High (09/29/24 06:17:00) HGB: 12.8 gm/dL Low (09/29/24 06:17:00) Creatinine: 1.7 mg/dL High (09/29/24 06:17:00) Hct: 37.3 % Low (09/29/24 06:17:00) BUN/Creat Ratio: 24 High (09/29/24 06:17:00) MCV: 93.2 fL (09/29/24 06:17:00) Sodium Lvl: 140 mmol/L (09/29/24 06:17:00) MCH: 32 pg (09/29/24 06:17:00) Potassium Lvl: 4.7 mmol/L (09/29/24 06:17:00) MCHC: 34.4 gm/dL (09/29/24 06:17:00) Chloride: 109 mmol/L (09/29/24 06:17:00) RDW: 14.8 % High (09/29/24 06:17:00) CO2: 24 mmol/L (09/29/24 06:17:00) Platelet: 184 E9/L (09/29/24 06:17:00) AGAP: 12 mEq/L (09/29/24 06:17:00) MPV: 8.8 fL (09/29/24 06:17:00) Calcium Lvl: 8.5 mg/dL Low (09/29/24 06:17:00) Allergies No Known Allergies No Known Medication Allergies Problems Ongoing - Any problem that you are currently receiving treatment for. 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 tract symptoms Bilateral renal atrophy Bladder mass Bladder tumor BMI 37.0-37.9, adult Bradycardia BXO (balanitis xerotica obliterans) CAD (coronary artery disease) Calciphylaxis Cardiomegaly Cerebral atrophy Chronic cystitis Chronic obstructive pulmonary disease CKD (chronic kidney disease) Congestive heart failure Deafness Diabetes Diabetic neuropathy Diverticular disease Dysuria Former pipe smoker Glucosuria Gross hematuria Headaches due to old head injury Heart disease History of bladder cancer History of colon polyps Hyperlipidemia Hypertension Impotence Isolated proteinuria Kidney stones Microscopic hematuria Morbid obesity Nocturia Penile edema Personal history of kidney stones Phimosis Positive fecal occult blood test Postprocedural fossa navicularis urethral stricture Proteinuria Rheumatoid arthritis SOB (shortness of breath) UTI (urinary tract infection) Ventricular hypertrophy Weak urinary stream Wound of skin Historical - Any problem that you are no longer receiving treatment for. Anticoagulant long-term use Anticoagulated Ex-cigarette smoker Education Materials Bradycardia, Adult Bradycardia is a toiewd-zhps-txtxum heartbeat. A normal resting heart rate for an adult ranges from 60 to 100 beats per minute. With bradycardia, the resting heart rate is less than 60 beats per minute. Bradycardia can prevent enough oxygen from reaching certain areas of your body when you are active. It can be serious if it keeps enough oxygen from reaching your brain and other parts of your body. Bradycardia is not a problem for everyone. For some healthy adults, a slow resting heart rate is normal. What are the causes? This condition may be caused by: ??? A problem with the heart, including: ? A problem with the heart's electrical system, such as a heart block. With a heart block, electrical signals between the chambers of the heart are partially or completely blocked, so they are not able to work as they should. ? A problem with the heart's natural pacemaker (sinus node). ? Heart disease. ? A heart attack. ? Heart damage. ? Lyme disease. ? A heart infection. ? A heart condition that is present at (congenital heart defect). ??? Certain medicines that treat heart conditions. ??? Certain conditions, such as hypothyroidism and obstructive sleep apnea. ??? Problems with the balance of chemicals and other substances, like potassium, in the blood. ??? Trauma. ??? Radiation therapy. What increases the risk? You are more likely to develop this condition if you: ??? Are age 65 or older. ??? Have high blood pressure (hypertension), high cholesterol (hyperlipidemia), or diabetes. ??? Drink heavily, use tobacco or nicotine products, or use drugs. What are the signs or symptoms? Symptoms of this condition include: ??? Light-headedness. ??? Feeling faint or fainting. ??? Fatigue and weakness. ??? Trouble with activity or exercise. ??? Shortness of breath. ??? Chest pain (angina). ??? Drowsiness. ??? Confusion. ??? Dizziness. How is this diagnosed? This condition may be diagnosed based on: ??? Your symptoms. ??? Your medical history. ??? A physical exam. During the exam, your health care provider will listen to your heartbeat and check your pulse. To confirm the diagnosis, your health care provider may order tests, such as: ??? Blood tests. ??? An electrocardiogram (ECG). This test records the heart's electrical activity. The test can show how fast your heart is beating and whether the heartbeat is steady. ??? A test in which you wear a portable device (event recorder or Holter monitor) to record your heart's electrical activity while you go about your day. ??? An exercise test. How is this treated? Treatment for this condition depends on the cause of the condition and how severe your symptoms are. Treatment may involve: ??? Treatment of the underlying condition. ??? Changing your medicines or how much medicine you take. ??? Having a small, battery-operated device called a pacemaker implanted under the skin. When bradycardia occurs, this device can be used to increase your heart rate and help your heart beat in a regular rhythm. Follow these instructions at home: Lifestyle ??? Manage any health conditions that contribute to bradycardia as told by your health care provider. ??? Follow a heart-healthy diet. A nutrition assistant (dietitian) can help educate you about healthy food options and changes. ??? Follow an exercise program that is approved by your health care provider. ??? Maintain a healthy weight. ??? Try to reduce or manage your stress, such as with yoga or meditation. If you need help reducing stress, ask your health care provider. ??? Do not use any products that contain nicotine or tobacco. These products include cigarettes, chewing tobacco, and vaping devices, such as e-cigarettes. If you need help quitting, ask your health care provider. ??? Do not use illegal drugs. Alcohol use If you drink alcohol: ??? Limit how much you have to: ? 0???1 drink a day for women who are not . ? 0???2 drinks a day for men. ??? Know how much alcohol is in a drink. In the [place] one drink equals one 12 oz bottle of beer (355 mL), one 5 oz glass of wine (148 mL), or one 1??? oz glass of hard liquor (44 mL). General instructions ??? Take gncc-jhi-xsfjmlj and prescription medicines only as told by your health care provider. ??? Keep all follow-up visits. This is important. How is this prevented? In some cases, bradycardia may be prevented by: ??? Treating underlying medical problems. ??? Stopping behaviors or medicines that can trigger the condition. Contact a health care provider if: ??? You feel light-headed or dizzy. ??? You almost faint. ??? You feel weak or are easily fatigued during physical activity. ??? You experience confusion or have memory problems. Get help right away if: ??? You faint. ??? You have chest pains or an irregular heartbeat (palpitations). ??? You have trouble breathing. These symptoms may represent a serious problem that is an emergency. Do not wait to see if the symptoms will go away. Get medical help right away. Call your local emergency services (911 in the [place] Do not drive yourself to the hospital. Summary ??? Bradycardia is a yrapbb-gnbo-uywehp heartbeat. With bradycardia, the resting heart rate is less than 60 beats per minute. ??? Treatment for this condition depends on the cause. ??? Manage any health conditions that contribute to bradycardia as told by your health care provider. ??? Do not use any products that contain nicotine or tobacco. These products include cigarettes, chewing tobacco, and vaping devices, such as e-cigarettes. ??? Keep all follow-up visits. This is important. This information is not intended to replace advice given to you by your health care provider. Make sure you discuss any questions you have with your health care provider. Document Revised: 10/26/2021 Document Reviewed: 10/26/2021 [employer] Patient Education ??? 2023 [employer] Common Emergency Awareness Tips IS IT A STROKE? Act FAST and Check for these signs: FACE Does the face look uneven? ARM Does one arm drift down? SPEECH Does their speech sound strange? TIME Call at any sign of stroke Heart Attack Signs Chest discomfort: Most heart attacks involve discomfort in the center of the chest and lasts more than a few minutes, or goes away and comes back. It can feel like uncomfortable pressure, squeezing, fullness or pain. Discomfort in upper body: Symptoms can include pain or discomfort in one or both arms, back, neck, jaw or stomach. Shortness of breath: With or without discomfort. Other signs: Breaking out in a cold sweat, nausea, or lightheaded. Remember, MINUTES DO MATTER. If you experience any of these heart attack warning signs, call to get immediate medical attention! Patient Survey You may receive a survey in the mail asking you about your stay with us. We want to hear from you, please share your experience with us by completing your survey. Thank you for choosing [facility]. Gustavo Award Nomination The GUSTAVO (Diseases Attacking the Immune SYstem) Award is an international recognition program that honors and celebrates the skillful, compassionate care nurses provide every day. Anyone who experiences or observes amazing care being provided by a nurse is encouraged to submit a nomination. To nominate your nurse, use your smart phone to scan the QR code below. Patient Portal You may access all of your results and other medical record information on our secure patient portal. If you are not signed up for this yet, please contact [employer] at [phone] to get signed up today. Patient Name: MARTINA DRIVER I have received this information and my questions have been answered. Patient/J2Ee Developer Name: Patient/J2Ee Developer Signature: Relationship to Patient: Witness Name/Signature: Date: DISCHARGE SUMMARY Observed: 09/29/2024 11:16 AM Status: F Source: [facility] Discharge Summary Admission and Discharge Information Admitting Physician - Gian Lyon DO Referring Physician - Shaun WORLEY MD Admitting Diagnoses: 1. Bradycardia, 09/28/2024 Discharge Diagnoses 1. Bradycardia, 09/28/2024 2. Bladder tumor, 09/28/2024 3. CAD (coronary artery disease), 09/28/2024 4. Congestive heart failure, 09/28/2024 5. Chronic obstructive pulmonary disease, 09/28/2024 6. CKD (chronic kidney disease), 09/28/2024 7. Diabetes, 09/28/2024 8. Diabetic neuropathy, 09/28/2024 9. Obesity, 09/28/2024 Procedure History TURBT - Transurethral resection of bladder tumor (09/28/2024), Cystoscopy (09/18/2024), Cystoscopy (04/26/2023), Cystoscopy (01/29/2022), TURBT - Transurethral resection of bladder tumor (10/23/2021), Circumcision (12/13/2019), Colonoscopy (03/09/2016), Cystoscopy and transurethral resection of bladder tumour (12/06/2014), Cystoscopy (11/20/2014), Lithotripsy (01/30/2010), Colonoscopy (06/05/2009), Arthroscopy of knee, Cardiac catheterization, Cataract extraction and insertion of intraocular lens, Knee derangement......, Mastoidectomy, Placement of stent in cardiac conduit, Total knee replacement.. Hospital Course Martina Driver is an 84-year-old male with past medical history positive for CAD, congestive heart failure, COPD, chronic kidney disease, diabetes with diabetic neuropathy, and obesity. Patient follows with Dr. Worley and was found to have bladder mass. Patient underwent cystoscopy, TURP with extensive fulguration 09/28/[address] Worley. Perioperatively, patient had bradycardia with heart rate into the 30s. Anesthesia and surgeon recommended hospitalization for 24-hour observation. Patient was admitted to hospital service. He remained hemodynamically stable. No events on telemetry. AM labs were stable. Patient remained free of CP, SOB, N/V. He has a Valverde catheter leg bag in place and this will remain intact until FU with urology. Patient will FU with Urology in 1 week for valverde removal and review of pathology with Dr Worley. He will FU with [facility] to review recent Holter monitor. He will FU with PCP in 3-5 days. Case management has arranged paramedicine. Procedures and Treatment Provided TURP with Dr Worley 09/28/24 Findings: Procedure: Cystoscopy Transurethral resection bladder tumor, two 5 mm lesions, Extensive fulguration General, LMA, 2% Xylocaine jelly per urethra Indications: This is a 84-year-old male with a history of bladder cancer who had outpatient surveillance cystoscopy demonstrating what appears to be a small recurrence on the left anterior aspect of the bladder wall and another lesion just medial to it. He presents today for resection with the inherent risk of bleeding, infection, recurrence, heart and lung problems under anesthesia, among others. He wishes to proceed. He did receive preoperative antibiotics and does have sequential compression devices in place and functional bilateral lower extremities throughout the case. Anesthesia: General, LMA, Dr. Sousa, 2% Xylocaine jelly per urethra Procedure: The patient was brought back to the operating room and a timeout was performed. All are in agreement with the operative plan and he is identified appropriately. After the successful induction of general anesthesia he is placed in a modified dorsolithotomy position and prepped in usual fashion Betadine solution. He draped appropriately and 2% Xylocaine jelly is placed per urethra. A well-lubricated 22 Dominican is urethroscope with 30 degree lens then passed into the bladder. Anterior urethra was within normal limits. The prostate is minimally obstructing. Once into the bladder panendoscopy reveals somewhat of a bilobed bladder. Bilateral ureteral orifices are normal and effluxing clear urine. On the anterior aspect of the bladder about alf up there is about a 5 to 6 mm lesion which is papillary and another fairly flat lesion just medial to that. The rest of the bladder becomes somewhat bulbous and extend significantly upward with bladder filling but empties nicely upon bladder emptying. I decided to proceed with cold cup biopsy resection of the small lesion and also the 1 next to it. This was accomplished and this tissue was sent to pathology for evaluation. Each lesion was about 5 to 6 mm in size. I then utilized the Bugbee electrode at about 60 W of power to electrocauterized both areas. There was very minimal bleeding. He tolerates it well. The rest of the bladder was completely inspected and found to be without lesion. 18 Dominican two-way Valverde catheter subsequently placed into the bladder and about 12 cc placed in the balloon. This is placed to bag drainage. He tolerates procedure well. As discussed with the patient and his family postoperatively the plan was to possibly get him admitted for observation secondary to his known abnormal Holter monitor and about bradycardia down into the 30s. I had a conversation with Dr. Lyon from the hospitalist service who agrees to put this patient into the hospital for observation for at least 24 hours with telemetry. The patient should follow-up with me in about 1 week to get the catheter removed and subsequently discussed the pathology report.. Estimated Blood Loss: 1 ml. Complications: None. Anesthesia type: General. [1] Physical Exam Vitals & Measurements T: 36.6 ???C(Axillary) TMIN: 36.2 ???C(Temporal Artery) TMAX: 36.8 ???C(Axillary) HR: 64(Monitored) RR: 18 BP: 169/70 SpO2: 92% HT: 170.18 cm WT: 106.7 kg General: Elderly male. Alert, calm, NAD Eyes: PERRLA, intact EOM HEENT: Mucous membrane pink, moist, Normal tongue. Neck: supple, no JVD, no bruit Lungs: on RA, lungs CTA Cardio: Regular S1, S2. Good perfusion Pulses: Normal capillary refill Abdomen: Soft, non-distended, non-tender, + BS x4 : leg Valverde bag draining a yellow urine Musculoskeletal: No deformity or scoliosis noted. Normal ROM for age. Integumentary: Warm, dry, fragile Extremity: No clubbing, no edema Neurologic: Alert, oriented x 4 follows commands, no obvious focal deficits Mental status: Pleasant & cooperative, normal judgment Discharge Plan Patient Discharge Condition Stable Discharge Disposition Discharge To, Anticipated II - Home with responsible caregiver Home with Paramedicine Discharge Diet Discharge Diet(s): Regular (09/29/24 08:26:00) Discharge Medication List Prescriptions No active prescription medications Home acetaminophen 325 mg Tab, 650 mg= 2 tab(s), Oral, q6hr, PRN aspirin 81 mg Oral EC Tab, 81 mg= 1 tab(s), Oral, Daily Basaglar KwikPen 100 units/mL subcutaneous solution, 30 unit, SubCutaneous, BID clopidogrel 75 mg Tab, 75 mg= 1 tab(s), Oral, Daily furosemide 40 mg Tab, 40 mg= 1 tab(s), Oral, Daily isosorbide mononitrate 30 mg ER Tab, 30 mg= 1 tab(s), Oral, qAM Klor-Con M20, 20 mEq, Oral, BID Lipitor 40 mg Tab, 40 mg= 1 tab(s), Oral, Once a day (at bedtime) lisinopril 2.5 mg Tab, 2.5 mg= 1 tab(s), Oral, Daily Trelegy Ellipta 100 mcg-62.5 mcg-25 mcg inhalation powder, 1 puff(s), Inhalation, Daily Follow-up With When Contact Information Lemuel Stevens MD Within 1 week [address] [address] [place] [address]- Additional Instructions: Call [facility] Office to schedule follow up apt to review Holter with your new workday director Janusz Schuster MD Within 5 to 7 days [facility] [place] [address]- Additional Instructions: Shaun WORLEY [address] [address]- [phone] Business (1) Additional Instructions: Leg bag for your catheter once discharged. Please call my office to make arrangements for the catheter removal next week and I will subsequently discuss with you the pathology report. Patient Education Bradycardia, Adult [1] OP NOTE:; BRUNILDA PURCELL, Shaun P 09/28/2024 12:48 EDT Result Comment: Electronical ly Signed By: Giuliana Jordan CNP\.br\Date and Time Signed: 09/29/24 11:31 EDT\.br\Electronically Co-Signed By: Gian Lyon DO\.br\Date and Time Co-Signed: 09/29/24 12:57 EDT CAPILLARY GLUCOSE POC Collected: 2024 11:15 AM Status: F Source: [facility] TYPE CODE TESTS RESULT OUT OF RANGE REFERENCE UNITS LAB 2340-8(LOINC) GLUCOSE:MCNC: PT:BLD:SEMIQN :TEST STRIP.AUTOMAT ED 142 High 55-99 mg/dL Result Comment: Notified RN/ MD Performed By: #### [id number] #### [facility] [address] [place] [address] CAPILLARY GLUCOSE POC Collected: 09/29/2024 8:41 AM Status: F Source: [facility] TYPE CODE TESTS RESULT OUT OF RANGE REFERENCE UNITS LAB 2340-8(LOINC) GLUCOSE:MCNC: PT:BLD:SEMIQN :TEST STRIP.AUTOMAT ED 116 High 55-99 mg/dL Result Comment: Notified RN/ MD Performed By: #### [id number] #### [facility] [address] [place] [address] INTERDISCIPLINARY NOTE - KIRK E LATHE SPOTTER Observed: 09/29/2024 8:37 AM Status: F Source: [facility] Interdisciplinary Note - Kirk e Part Time Receptionist CRM to room 303 Patient is awake, alert and oriented. Patient is from home alone. Per Patient his daughter is his ride at [place]. Patient verified his PCP, DME and insurance. Patient is an outpatient status. Patient came in and had cystoscopy, resection of tumor. Patient is assigned to Giuliana RETAIL SALES CONSULTANT, see notes. Patient declined no safety concerns to return home. Patient declined any needs for DME or HH care. He has a rollator, cane and Wheel chair at home. Patient would like Par[facility] if they come to [place]. Patient was provided CRM contact, brett board updated. CRM following Patient is a possible DC today. CRM will get updates at 10 AM from hospitalist Result Comment: Electronical ly Signed By: Stephanie Rivero\.br\Date and Time Signed: 09/29/24 08:41 EDT PATIENT EDUCATION - TEXT Observed: 09/29 8:24 AM Status: C Source: [facility] Patient Education - Text Emergency Medicine Bradycardia, Adult Bradycardia is a stzbul-nasf-dgnfgj heartbeat. A normal resting heart rate for an adult ranges from 60 to 100 beats per minute. With bradycardia, the resting heart rate is less than 60 beats per minute. Bradycardia can prevent enough oxygen from reaching certain areas of your body when you are active. It can be serious if it keeps enough oxygen from reaching your brain and other parts of your body. Bradycardia is not a problem for everyone. For some healthy adults, a slow resting heart rate is normal. What are the causes? This condition may be caused by: ??? A problem with the heart, including: ? A problem with the heart's electrical system, such as a heart block. With a heart block, electrical signals between the chambers of the heart are partially or completely blocked, so they are not able to work as they should. ? A problem with the heart's natural pacemaker (sinus node). ? Heart disease. ? A heart attack. ? Heart damage. ? Lyme disease. ? A heart infection. ? A heart condition that is present at (congenital heart defect). ??? Certain medicines that treat heart conditions. ??? Certain conditions, such as hypothyroidism and obstructive sleep apnea. ??? Problems with the balance of chemicals and other substances, like potassium, in the blood. ??? Trauma. ??? Radiation therapy. What increases the risk? You are more likely to develop this condition if you: ??? Are age 65 or older. ??? Have high blood pressure (hypertension), high cholesterol (hyperlipidemia), or diabetes. ??? Drink heavily, use tobacco or nicotine products, or use drugs. What are the signs or symptoms? Symptoms of this condition include: ??? Light-headedness. ??? Feeling faint or fainting. ??? Fatigue and weakness. ??? Trouble with activity or exercise. ??? Shortness of breath. ??? Chest pain (angina). ??? Drowsiness. ??? Confusion. ??? Dizziness. How is this diagnosed? This condition may be diagnosed based on: ??? Your symptoms. ??? Your medical history. ??? A physical exam. During the exam, your health care provider will listen to your heartbeat and check your pulse. To confirm the diagnosis, your health care provider may order tests, such as: ??? Blood tests. ??? An electrocardiogram (ECG). This test records the heart's electrical activity. The test can show how fast your heart is beating and whether the heartbeat is steady. ??? A test in which you wear a portable device (event recorder or Holter monitor) to record your heart's electrical activity while you go about your day. ??? An exercise test. How is this treated? Treatment for this condition depends on the cause of the condition and how severe your symptoms are. Treatment may involve: ??? Treatment of the underlying condition. ??? Changing your medicines or how much medicine you take. ??? Having a small, battery-operated device called a pacemaker implanted under the skin. When bradycardia occurs, this device can be used to increase your heart rate and help your heart beat in a regular rhythm. Follow these instructions at home: Lifestyle ??? Manage any health conditions that contribute to bradycardia as told by your health care provider. ??? Follow a heart-healthy diet. A nutrition assistant (dietitian) can help educate you about healthy food options and changes. ??? Follow an exercise program that is approved by your health care provider. ??? Maintain a healthy weight. ??? Try to reduce or manage your stress, such as with yoga or meditation. If you need help reducing stress, ask your health care provider. ??? Do not use any products that contain nicotine or tobacco. These products include cigarettes, chewing tobacco, and vaping devices, such as e-cigarettes. If you need help quitting, ask your health care provider. ??? Do not use illegal drugs. Alcohol use If you drink alcohol: ??? Limit how much you have to: ? 0?1 drink a day for women who are not . ? 0?2 drinks a day for men. ??? Know how much alcohol is in a drink. In the [place] one drink equals one 12 oz bottle of beer (355 mL), one 5 oz glass of wine (148 mL), or one 1? oz glass of hard liquor (44 mL). General instructions ??? Take bmnu-bsl-owsdtxx and prescription medicines only as told by your health care provider. ??? Keep all follow-up visits. This is important. How is this prevented? In some cases, bradycardia may be prevented by: ??? Treating underlying medical problems. ??? Stopping behaviors or medicines that can trigger the condition. Contact a health care provider if: ??? You feel light-headed or dizzy. ??? You almost faint. ??? You feel weak or are easily fatigued during physical activity. ??? You experience confusion or have memory problems. Get help right away if: ??? You faint. ??? You have chest pains or an irregular heartbeat (palpitations). ??? You have trouble breathing. These symptoms may represent a serious problem that is an emergency. Do not wait to see if the symptoms will go away. Get medical help right away. Call your local emergency services (911 in the [place] Do not drive yourself to the hospital. Summary ??? Bradycardia is a aurung-bqbl-xggjcp heartbeat. With bradycardia, the resting heart rate is less than 60 beats per minute. ??? Treatment for this condition depends on the cause. ??? Manage any health conditions that contribute to bradycardia as told by your health care provider. ??? Do not use any products that contain nicotine or tobacco. These products include cigarettes, chewing tobacco, and vaping devices, such as e-cigarettes. ??? Keep all follow-up visits. This is important. This information is not intended to replace advice given to you by your health care provider. Make sure you discuss any questions you have with your health care provider. Document Revised: 10/26/2021 Document Reviewed: 10/26/2021 [employer] Patient Education ? 2023 [employer] BMP Collected: 5 6:17 AM Status: F Source: [facility] TYPE CODE TESTS RESULT OUT OF RANGE REFERENCE UNITS LAB 2345-7([facility]) GLUCOSE:MCNC :PT:SER/PLAS :QN: 169 Normal 55-199 mg/dL LAB 3094-0([facility]) UREA NITROGEN:MCN C:PT:SER/JUDI S:QN: 41 High 5-21 mg/dL LAB 2160-0([facility]) CREATININE:M CNC:PT:SER/P LAS:QN: 1.7 High 0.5-1.3 mg/dL LAB 3097-3([facility]) UREA NITROGEN/CRE ATININE:MRTO :PT:SER/PLAS :QN: 24 High 10-20 No Units LAB 84583-4([facility]) CALCIUM:MCNC :PT:SER/PLAS :QN: 8.5 Low 8.9-11.1 mg/dL LAB 2951-2([facility]) SODIUM:SCNC: PT:SER/PLAS: QN: 140 Normal 135-145 mmol/L LAB 2823-3([facility]) POTASSIUM:SC NC:PT:SER/PL :QN: 4.7 Normal 3.5-5.3 mmol/L LAB 2075-0([facility]) CHLORIDE:SCN C:PT:SER/JUDI S:QN: 109 Normal 101-111 mmol/L LAB 8-9([facility]) CARBON DIOXIDE:SCNC :PT:SER/PLAS :QN: 24 Normal 21-31 mmol/L LAB 45773-9([facility]) ANION GAP:SCNC:PT: SER/PLAS:QN: CALCULATED 12 Normal 6-16 mEq/L Performed By: #### [id number] # ### [facility] [address] [place] [address] EGFR Collected: 5 6:17 AM Status: F Source: [facility] TYPE CODE TESTS RESULT OUT OF RANGE REFERENCE UNITS LAB [id number]([facility]) eGFR 39 Low >=59 mL/min/1 .7 3 m2 Performed By: #### [id number] #### [facility] [address] [place] [address] TSH WITH T4FR REFLEX Collected: 025 6:17 AM Status: F Source: [facility] TYPE CODE TESTS RESULT OUT OF RANGE REFERENCE UNITS LAB 3016-3([facility]) THYROTROPIN: ACNC:PT:SER/ PLAS:QN: 0.59 Normal 0.34-5.60 mcIU/mL Performed By: #### [id number] #### [facility] [address] [place] [address] CBC W/ AUTO DIFF Collected: 09/29/2024 6:17 AM Statu s: F Source: [facility] TYPE CODE TESTS RESULT OUT OF RANGE REFERENCE UNITS LAB 45709-8([facility]) LEUKOCYTES^^CO RRECTED FOR NUCLEATED ERYTHROCYTES:N CNC:PT:BLD:QN: AUTOMATED COUNT 10.7 Normal 4.0-11.0 E9/L LAB 789-8([facility]) ERYTHROCYTES:N CNC:PT:BLD:QN: AUTOMATED COUNT 4.0 Low 4.3-5.9 E12/L LAB 718-7([facility]) HEMOGLOBIN:MCN C:PT:BLD:QN: 12.8 Low 13.5-17.5 gm/dL LAB 4544-3([facility]) ERYTHROCYTE/BL OOD:VFR:PT:BLD :QN:AUTOMATED COUNT 37.3 Low 37.7-49.0 % LAB 788-0([facility]) OBSERVATION:DI STWIDTH:PT:RBC :QN:AUTOMATED COUNT 14.8 High 10.9-14.2 % LAB 785-6([facility]) HEMOGLOBIN:ENT MASS:PT:RBC:QN :AUTOMATED COUNT 32.0 Normal 27.0-34.0 pg LAB 786-4([facility]) HEMOGLOBIN:ENT MCNC:PT:RBC:QN :AUTOMATED COUNT 34.4 Normal 31.4-36.0 gm/dL LAB 787-2([facility]) OBSERVATION:EN TMEANVOL:PT:RB C:QN:AUTOMATED COUNT 93.2 Normal 80.0-100.0 fL LAB 38660-4([facility]) PLATELET:ENTME ANVOL:PT:BLD:Q N:AUTOMATED COUNT 8.8 Normal 6.4-10.8 fL LAB [id number]([facility]) Platelet 184.0 Normal 150.0-500.0 E9/ L LAB 86921-3([facility]) NEUTROPHILS/LE UKOCYTES:NFR:P T:BLD:QN: 84.2 High 36.0-75.0 % LAB 731-0([facility]) LYMPHOCYTES:NC NC:PT:BLD:QN:A UTOMATED COUNT 8.5 Low 14.0-50.0 % LAB 742-7([facility]) MONOCYTES:NCNC :PT:BLD:QN:AUT OMATED COUNT 0.7 Normal 0.2-1.0 E9/L LAB 713-8([facility]) EOSINOPHILS/LE UKOCYTES:NFR:P T:BLD:QN:AUTOM ATED COUNT 0.2 Normal 0.0-8.0 % LAB 704-7([facility]) BASOPHILS:NCNC :PT:BLD:QN:AUT OMATED COUNT 0.4 Normal 0.0-2.0 % LAB 751-8([facility]) NEUTROPHILS:NC NC:PT:BLD:QN:A UTOMATED COUNT 9.0 High 2.0-7.5 E9/L LAB 29707-6([facility]) LYMPHOCYTES:NC NC:PT:BLD:QN: 0.9 Low 1.0-4.0 E9/L LAB 47211-3([facility]) EOSINOPHILS:NC NC:PT:BLD:QN: 0.0 Normal 0.0-0.5 E9/L LAB 27138-3([facility]) BASOPHILS/LEUK OCYTES:NFR.DF: PT:BLD:QN:AUTO MATED COUNT 0.0 Normal 0.0-0.2 E9/L Performed By: #### [id number] # ### [facility] [address] [place] [address] CAPILLARY GLUCOSE POC Collected: 09/28/2024 9:24 PM Status: F Source: [facility] TYPE CODE TESTS RESULT OUT OF RANGE REFERENCE UNITS LAB 2340-8([facility]) GLUCOSE:MCNC: PT:BLD:SEMIQN :TEST STRIP.AUTOMAT ED 256 High 55-99 mg/dL Result Comment: Notified RN/ MD Performed By: #### [id number] #### [facility] [address] [place] [address] CAPILLARY GLUCOSE POC Collected: 09/28/2024 8:45 PM Status: F Source: [facility] TYPE CODE TESTS RESULT OUT OF RANGE REFERENCE UNITS LAB 2340-8([facility]) GLUCOSE:MCNC: PT:BLD:SEMIQN :TEST STRIP.AUTOMAT ED 256 High 55-99 mg/dL Performed By: #### [id number] #### [facility] [address] [place] [address] HISTORY AND PHYSICAL Observed: 5:28 PM Status: F Source: [facility] History and Physical Basic Information 84 year old male with significant cardiac history admitted for obs after TURP History of Present Illness Martina Driver is an 84-year-old male with past medical history positive for CAD, congestive heart failure, COPD, chronic kidney disease, diabetes with diabetic neuropathy, and obesity. Patient follows with Dr. Worley and was found to have bladder mass. Patient underwent cystoscopy, TURP with extensive fulguration 09/28/[address] Worley. Perioperatively, patient had bradycardia with heart rate into the 30s. Anesthesia and surgeon recommended hospitalization for 24-hour observation. Patient is admitted to hospital service. Patient is seen in his MedSurg floor. His telemetry shows sinus rhythm in the 80s. His blood pressure is slightly hypertensive. He offers no complaints to me. He has a Valverde catheter leg bag in place. He specifically denies any chest pain, palpitations or shortness of breath. He denies any dizziness, lightheaded, near syncope/syncope. Reviewing recent [facility] heart note from 08/28/2024, patient was noted to be bradycardic and taken off his metoprolol. He had a recent Holter monitor Review of Systems Constitutional: Negative Eye: Negative. Ear/Nose/Mouth/Throat: Negative. Respiratory: Negative Cardiovascular: Positive bradycardia that is asymptomatic. Gastrointestinal: Negative Genitourinary: Positive recent urologic procedure, Valverde in place. Hematology/Lymphatics: Negative. Endocrine: Negative. Immunologic: Negative Musculoskeletal: Negative. Integumentary: Negative. Neurologic: Alert and oriented X4. Psychiatric: Negative. Additional ROS info: Except as noted in the above Review of Systems and in the History of Present Illness all other systems have been reviewed and are negative or noncontributory Scoring Friend Fall Risk Score: 60 High (09/28/24) Physical Exam Vitals & Measurements T: 36.8 ???C(Axillary) TMIN: 36.2 ???C(Temporal Artery) TMAX: 36.8 ???C(Axillary) HR: 68(Monitored) RR: 16 BP: 168/59 SpO2: 94% HT: 170.18 cm WT: 106.9 kg General: Obese elderly male, nontoxic appearing. Alert, calm, NAD Head: Normocephalic/atraumatic Eyes: PERRLA. Conjunctivae and sclerae normal, and intact EOM HEENT: Mucous membrane pink, moist, Normal midline tongu. Neck: Trachea midline, neck supple Chest: No chest wall deformity, no chest wall tenderness Lungs: On room air, lungs are clear Cardio: Bradycardic but regular S1, S2, no murmur, Good perfusion Pulses: Normal capillary refill Abdomen: Soft, non-distended, non-tender, + BS x4 Musculoskeletal: No deformity or scoliosis noted. Normal ROM for age. Integumentary: Warm, dry, fragile but intact Extremity: No clubbing, no edema Neurologic: Alert, oriented x 4 follows commands, no obvious focal deficits Mental status: Pleasant & cooperative, normal judgment Lab Results Glucose Cap: 145 mg/dL High (09/28/24 16:36:00) POC Device SN: [id number] (09/28/24 16:36:00) POC User ID: [id number] (09/28/24 16:36:00) POC Username: POC Username (09/28/24 16:36:00) Assessment/Plan 1. Bradycardia (R00.1: Bradycardia, unspecified) Patient with recent cardiology visit noting bradycardia, taken off beta-jack Recent 48-hour Holter monitor showing average heart rate of 66 bpm, asymptomatic positive for 0.8 seconds deemed to sinus arrhythmia event Recent echocardiogram with an EF of 55 to 60% -Admit to observation with telemetry -Plan for DC home if no concerning finding on telemetry, patient remains asymptomatic -Follow-up with [facility] cardiology as previously planned 2. 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 Worley 09/28/2024 Patient has leg bag in place, no hematuria -CBC in a.m. -Follow-up with Dr. Worley in 1 week for cath removal and discussion of pathology results 3. CAD (coronary artery disease) (I25.10: Atherosclerotic heart disease of [place] coronary artery without angina pectoris) Patient with single-vessel CAD post prior PCI, preserved LV function Aspirin and Plavix on hold post urologic procedure, resume injection of urology -Continue statin, BALJINDER, Imdur; no beta-jack due to #1 4. Congestive heart failure (I50.9: Heart failure, unspecified) CHF documented by history, patient does not appear to be volume overload; reviewed most recent echo this would be chronic diastolic heart failure -Lasix 5. Chronic obstructive pulmonary disease (J44.9: Chronic obstructive pulmonary disease, unspecified) Stable on room air, Trelegy at home -PRN DuoNebs/Albuterol 6. CKD (chronic kidney disease) (N18.9: Chronic kidney disease, unspecified) Recent outpatient labs with creatinine 1.8, unclear what patient's baseline is -Trend BMP 7. Diabetes (E11.9: Type 2 diabetes mellitus without complications) Hold oral agents while inpatient -Resume 7030 at slightly lower dose while in hospital -Accu-Chek ACH S with sliding scale insulin 8. Diabetic neuropathy (E11.40: Type 2 diabetes mellitus with diabetic neuropathy, unspecified) Supportive care 9. Obesity (E66.9: Obesity, unspecified) -Patient's BMI >30. Lifestyle modifications encouraged. Obesity is a pro- inflammatory state likely affecting above medical processes. Outpatient follow up. Orders: acetaminophen, 650 mg = 2 tab(s), Tab, Oral, q6hr PRN Pain, Routine, Start date 09/28/24 15:54:00 EDT, 09/28/24 15:54:00 EDT atorvastatin, 40 mg = 1 tab(s), Tab, Oral, Once a day (at bedtime), Routine, Start date 09/28/24 21:00:00 EDT, 09/28/24 17:30:00 EDT docusate, 100 mg = 1 cap(s), Cap, Oral, BID, Routine, Start date 09/28/24 21:00:00 EDT, 09/28/24 17:32:00 EDT furosemide, 40 mg = 1 tab(s), Tab, Oral, Daily, Routine, Start date 09/29/24 9:00:00 EDT, 09/28/24 17:30:00 EDT glucose, 50 mL, Soln-IV, IV Push, Once PRN Blood glucose, Routine, Start date 09/28/24 17:31:00 EDT hydrALAZINE, 10 mg = 0.5 mL, Injection, IV Push, q6hr PRN Other (see comment), Routine, Start date 09/28/24 17:32:00 EDT, 09/28/24 17:32:00 EDT insulin isophane-insulin regular, 20 unit(s), SubCutaneous, BIDAC, Routine, Start date 09/29/24 7:30:00 EDT, 09/28/24 17:30:00 EDT insulin lispro, 0-10 Unit(s), Injection-Insulin, SubCutaneous, QIDACHS, Routine, Start date 09/28/24 21:00:00 EDT isosorbide mononitrate, 30 mg = 1 tab(s), Tab-ER, Oral, Daily, Routine, Start date 09/29/24 9:00:00 EDT lisinopril, 2.5 mg = 1 tab(s), Tab, Oral, Daily, Routine, Start date 09/29/24 9:00:00 EDT, 09/28/24 17:31:00 EDT ondansetron, 4 mg = 2 mL, Injection, IV Push, q6hr PRN Nausea, Routine, Start date 09/28/24 15:54:00 EDT, 09/28/24 15:54:00 EDT Activity As Tolerated Basic Metabolic Panel Cardiac Diet Cardiac Monitoring CBC w/ Auto Diff Hypoglycemia Protocol Responsive Patient Hypoglycemia Protocol Unresponsive Patient Incentive Spirometry Intake and Output Notify Provider Vital Signs Notify Provider Vital Signs Oxygen Protocol Precautions Pulse Oximetry Respiratory Protocol Resuscitation Status - Full Routine Capillary Glucose POC TSH With T4fr Reflex Vital Signs Weight Patient admitted to obs as we anticipate < 2 MN stay for observation of bradycardia FULL CODE DVT Prophylaxis: SCDs Problem List/Past Medical History Ongoing 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 tract symptoms Bilateral renal atrophy Bladder mass Bladder tumor BMI 37.0-37.9, adult Bradycardia BXO (balanitis xerotica obliterans) CAD (coronary artery disease) Calciphylaxis Cardiomegaly Cerebral atrophy Chronic cystitis Chronic obstructive pulmonary disease CKD (chronic kidney disease) Congestive heart failure Deafness Diabetes Diabetic neuropathy Diverticular disease Dysuria Former pipe smoker Glucosuria Gross hematuria Headaches due to old head injury Heart disease History of bladder cancer History of colon polyps Hyperlipidemia Hypertension Impotence Isolated proteinuria Kidney stones Microscopic hematuria Morbid obesity Nocturia Penile edema Personal history of kidney stones Phimosis Positive fecal occult blood test Postprocedural fossa navicularis urethral stricture Proteinuria Rheumatoid arthritis SOB (shortness of breath) UTI (urinary tract infection) Ventricular hypertrophy Weak urinary stream Wound of skin Historical Anticoagulant long-term use Anticoagulated Ex-cigarette smoker Procedure/Surgical History TURBT - Transurethral resection of bladder tumor (09/28/2024), Cystoscopy (09/18/2024), Cystoscopy (04/26/2023), Cystoscopy (01/29/2022), TURBT - Transurethral resection of bladder tumor (10/23/2021), Circumcision (12/13/2019), Colonoscopy (03/09/2016), Cystoscopy and transurethral resection of bladder tumour (12/06/2014), Cystoscopy (11/20/2014), Lithotripsy (01/30/2010), Colonoscopy (06/05/2009), Arthroscopy of knee, Cardiac catheterization, Cataract extraction and insertion of intraocular lens, Knee derangement......, Mastoidectomy, Placement of stent in cardiac conduit, Total knee replacement.. Medications Inpatient acetaminophen 325 mg Tab, 650 mg= 2 tab(s), Oral, q6hr, PRN Sodium Chloride 0.9% IV Xochitl 1000 mL 1,000 mL, 1000 mL, IV Zofran 4 mg/2 mL Injection, 4 mg= 2 mL, IV Push, q6hr, PRN Home aspirin 81 mg Oral EC Tab, 81 mg= 1 tab(s), Oral, Daily clopidogrel 75 mg Tab, 75 mg= 1 tab(s), Oral, Daily furosemide 40 mg Tab, 40 mg= 1 tab(s), Oral, Daily isosorbide mononitrate 30 mg ER Tab, 30 mg= 1 tab(s), Oral, qAM Klor-Con M20, 20 mEq, Oral, BID Lipitor 40 mg Tab, 40 mg= 1 tab(s), Oral, Once a day (at bedtime) lisinopril 2.5 mg Tab, 2.5 mg= 1 tab(s), Oral, Daily metformin, 500 mg, Oral, BID Novolin 70/30, 30 unit(s), SubCutaneous, BIDAC Trelegy Ellipta 100 mcg-62.5 mcg-25 mcg inhalation powder, 1 puff(s), Inhalation, Daily Allergies No Known Allergies No Known Medication Allergies Social History Alcohol - Denies Alcohol Use, 03/05/2015 Current, Beer, 1-2 times per year, 09/20/2024 Substance Abuse - Denies Substance Abuse, 03/05/2015 Tobacco - Denies Tobacco Use, 03/05/2015 Cigars or pipes but not daily within last 30 days, Former smoker, quit more than 30 days ago Tobacco Use:. Never Smokeless Tobacco Use:. Pipe, 09/18/2024 Family History Asthma: Mother. Cancer: Father. Congenital heart disease: Mother. Hypertension: Mother. Immunizations Vaccine Date Status Comments BCG 12/30/2021 Given BCG 12/23/2021 Given BCG 12/18/2021 Given BCG 12/16/2021 Given BCG 12/02/2021 Given BCG 11/18/2021 Given SARS-CoV-2 (COVID-19) Ad26 vaccine - Not Given Patient Refuses BCG 11/11/2021 Given influenza virus vaccine, inactivated 05/07/2021 Recorded influenza virus vaccine, inactivated 04/18/2021 Recorded influenza virus vaccine, inactivated 04/2020 Recorded influenza virus vaccine, inactivated 04/11/2020 Recorded influenza virus vaccine, inactivated 06/17/2017 Recorded influenza, unspecified formulation 05/20/2016 Recorded Result Comment: Electronical ly Signed By: Giuliana Jordan CNP\.br\Date and Time Signed: 09/28/24 18:43 EDT\.br\Electronically Co-Signed By: Gian Lyon DO\.br\Date and Time Co-Signed: 09/29/24 07:01 EDT CAPILLARY GLUCOSE POC Collected: 09/28/2024 4:36 PM Status: F Source: [facility] TYPE CODE TESTS RESULT OUT OF RANGE REFERENCE UNITS LAB 2340-8([facility]) GLUCOSE:MCNC: PT:BLD:SEMIQN :TEST STRIP.AUTOMAT ED 145 High 55-99 mg/dL Result Comment: Notified RN/ MD Performed By: #### [id number] #### [facility] [address] [place] [id number] INTERDISCIPLINARY NOTE - KIRK E LATHE SPOTTER Observed: 09/28/2024 3:09 PM Status: F Source: [facility] Interdisciplinary Note - Kirk e Part Time Receptionist CRM did chart review Low risk for readmit CRM will round for DC planning on 09/29 Result Comment: Electronical ly Signed By: Stephanie Rivero\.br\Date and Time Signed: 09/28/24 15:09 EDT OUTPATIENT SURGERY DISCHARGE INSTRUCTION Observed: 09/28/2024 1:01 PM Status: F Source: [facility] Outpatient Surgery Discharge Instruction [address] [address] Patient Discharge Instructions PERSON INFORMATION Name: MARTINA DRIVER Date of : 1940 Current Date: 09/28/2024 13:01:23 PHYSICIANS Admitting Physician: Shaun WORLEY MD Discharge Diagnosis: MARTINA DRIVER has been given the following list of follow-up instructions, prescriptions, and patient education materials: IF UNABLE TO CONTACT YOUR PHYSICIAN AND YOU FEEL IT IS AN EMERGENCY, GO TO THE NEAREST EMERGENCY ROOM OR CALL 911 INEISHA DAVID R, have received the attached patient education materials/instructions and have verbalized understanding: May we do a follow up call? Yes No I was present when discharge instructions were given Patient Signature Date Clinican/Nurse Signature Date Follow up: With: Address: When: Shaun [address], [address], [facility] [address] [place] [id number] Business (1) Comments: Leg bag for your catheter once discharged. Please call my office to make arrangements for the catheter removal next week and I will subsequently discuss with you the pathology report. Pharmacy Information: You may receive a survey from Lashonda Clark asking you to rate your care experience. Your feedback is important and will help us understand what we do well and how we can improve the quality of care we provide to you, your loved ones and our community. It???s an honor to serve you. Thank you for choosing [facility] HERE ARE THE MEDICATION CHANGES THAT OCCURRED DURING YOUR HOSPITAL STAY Medications to Continue with No Changes Other Medications aspirin (aspirin 81 mg Oral EC Tab) 1 Tablets By Mouth every day. atorvastatin (Lipitor 40 mg Tab) 1 Tablets By Mouth once a day (at bedtime). clopidogrel (clopidogrel 75 mg Tab) 1 Tablets By Mouth every day. fluticasone/umeclidinium/vilanterol (Trelegy Ellipta 100 mcg-62.5 mcg-25 mcg inhalation powder) 1 Puffs Inhalation every day. insulin isophane-insulin regular (Novolin 70/30) 30 Units Subcutaneous twice a day (before meals). as directed. isosorbide mononitrate (isosorbide mononitrate 30 mg ER Tab) 1 Tablets By Mouth once a day (in the morning). lisinopril (lisinopril 2.5 mg Tab) 1 Tablets By Mouth every day. metformin 500 Milligram By Mouth 2 times a day. potassium chloride (Klor-Con M20) 20 Milliequivalent By Mouth 2 times a day. PATIENT EDUCATION INFORMATION Instructions: Medication Leaflets: PATIENT EDUCATION - TEXT Observed: 09/28 1:01 PM Status: C Source: [facility] Patient Education - Text INPATIENT PATIENT SUMMARY Observed: 09/16 1:01 PM Status: F Source: [facility] Inpatient Patient Summary [address] [address] [facility] Clinical Discharge Instructions PERSON INFORMATION Name: MARTINA DRIVER [facility]#:[id number] PHYSICIANS Admitting Physician: Shaun WORLEY MD Attending Physician: Shaun WORLEY MD PCP: Janusz Schuster MD Discharge Diagnosis: Comment: PATIENT EDUCATION INFORMATION Instructions: Medication Leaflets: Follow up: With: Address: When: Shaun BRUNILDA [address] [place] [address], [address], [place] [phone] Business (1) Comments: Leg bag for your catheter once discharged. Please call my office to make arrangements for the catheter removal next week and I will subsequently discuss with you the pathology report. MEDICATION LIST Medications to Continue with No Changes Other Medications aspirin (aspirin 81 mg Oral EC Tab) 1 Tablets By Mouth every day. atorvastatin (Lipitor 40 mg Tab) 1 Tablets By Mouth once a day (at bedtime). clopidogrel (clopidogrel 75 mg Tab) 1 Tablets By Mouth every day. fluticasone/umeclidinium/vilanterol (Trelegy Ellipta 100 mcg-62.5 mcg-25 mcg inhalation powder) 1 Puffs Inhalation every day. insulin isophane-insulin regular (Novolin 70/30) 30 Units Subcutaneous twice a day (before meals). as directed. isosorbide mononitrate (isosorbide mononitrate 30 mg ER Tab) 1 Tablets By Mouth once a day (in the morning). lisinopril (lisinopril 2.5 mg Tab) 1 Tablets By Mouth every day. metformin 500 Milligram By Mouth 2 times a day. potassium chloride (Klor-Con M20) 20 Milliequivalent By Mouth 2 times a day. 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 Optimetrix number: Optimetrix number [id number]. Anesthetic utilized: General. Health Status Allergies: Allergic Reactions (Selected) No Known Allergies No Known Medication Allergies Physical Examination VS/Measurements Pain Assessment: Controlled. General: Awake, Appropriate. Respiratory: Adequate air exchange. Cardiovascular: Stable. Neurological Assessment Anesthetic outcome No anesthetic complications noted. Adequate pain relief. Review / Management Condition: Stable. Plan Transfer/Discharge: Transfer/Discharge Discharge when meets criteria ( To home ). 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 Performed by: Shaun Worley MD. Findings: Procedure: Cystoscopy Transurethral resection bladder tumor, two 5 mm lesions, Extensive fulguration General, LMA, 2% Xylocaine jelly per urethra Indications: This is a 84-year-old male with a history of bladder cancer who had outpatient surveillance cystoscopy demonstrating what appears to be a small recurrence on the left anterior aspect of the bladder wall and another lesion just medial to it. He presents today for resection with the inherent risk of bleeding, infection, recurrence, heart and lung problems under anesthesia, among others. He wishes to proceed. He did receive preoperative antibiotics and does have sequential compression devices in place and functional bilateral lower extremities throughout the case. Anesthesia: General, LMA, Dr. Sousa, 2% Xylocaine jelly per urethra Procedure: The patient was brought back to the operating room and a timeout was performed. All are in agreement with the operative plan and he is identified appropriately. After the successful induction of general anesthesia he is placed in a modified dorsolithotomy position and prepped in usual fashion Betadine solution. He draped appropriately and 2% Xylocaine jelly is placed per urethra. A well-lubricated 22 Dominican is urethroscope with 30 degree lens then passed into the bladder. Anterior urethra was within normal limits. The prostate is minimally obstructing. Once into the bladder panendoscopy reveals somewhat of a bilobed bladder. Bilateral ureteral orifices are normal and effluxing clear urine. On the anterior aspect of the bladder about alf up there is about a 5 to 6 mm lesion which is papillary and another fairly flat lesion just medial to that. The rest of the bladder becomes somewhat bulbous and extend significantly upward with bladder filling but empties nicely upon bladder emptying. I decided to proceed with cold cup biopsy resection of the small lesion and also the 1 next to it. This was accomplished and this tissue was sent to pathology for evaluation. Each lesion was about 5 to 6 mm in size. I then utilized the Bugbee electrode at about 60 W of power to electrocauterized both areas. There was very minimal bleeding. He tolerates it well. The rest of the bladder was completely inspected and found to be without lesion. 18 Dominican two-way Valverde catheter subsequently placed into the bladder and about 12 cc placed in the balloon. This is placed to bag drainage. He tolerates procedure well. As discussed with the patient and his family postoperatively the plan was to possibly get him admitted for observation secondary to his known abnormal Holter monitor and about bradycardia down into the 30s. I had a conversation with Dr. Lyon from the hospitalist service who agrees to put this patient into the hospital for observation for at least 24 hours with telemetry. The patient should follow-up with me in about 1 week to get the catheter removed and subsequently discussed the pathology report.. Estimated Blood Loss: 1 ml. Complications: None. Anesthesia type: General. Result Comment: Electronical ly Signed By: Shaun WORLEY MD.diana\Date and Time Signed: 09/28/24 12:58 EDT SURGICAL PATHOLOGY REPORT Observed: 09/16 12:44 PM Status: F Source: [facility] [place] [address]- Surgical Pathology Report Collected Date/Time: 09/28/2024 12:44 EDT Pathologist: Puneet PURCELL PhD, Edenilson Birch Received Date/Time: 09/28/2024 13:12 EDT BRUNILDA PURCELL, Shaun WORLEY MD, Shaun Shankar Surgical Pathology Report - 10/04/2024 14:05 EDT - Auth (Verified) Final Diagnosis ANTERIOR BLADDER TUMOR, TRANSURETHRAL RESECTION: - FLAT UROTHELIAL LESION OF ATYPIA OF UNKNOWN SIGNIFICANCE. - NO MUSCULARIS PROPRIA PRESENT (SEE COMMENT). Comment: Slightly thickened urothelial epithelium contains mild cytologic atypia. No aberrant CK20 expression is identified, however flat urothelial epithelium demonstrates increased p53 expression, consistent with rendered diagnosis. No high grade or invasive disease is identified on submitted sections. Clinical correlation and follow-up is recommended as clinically indicated. (Electronic Signature) Edenilson Teixeira MD PhD 10/04/2024 14:05 Clinical Information Bladder tumor Pre-Op Diagnosis: Bladder tumor Procedure: Cysto, TURBT, fulguration Post-Op Diagnosis: 1. Bladder neoplasm of uncertain malignant potential 2. History of bladder cancer Specimen(s) Received Left anterior bladder tumor Gross Description Received in formalin labeled with patient name, number, and left anterior bladder tumor are two minute fragments of mix soft tissue measuring 0.2 cm in diameter each. Entire specimen submitted in one cassette. (YC) [facility] Microscopic Description The use of one or more reagents in the above tests is regulated as an analyte specific reagent (ASR). The test or tests are ordered following initial H&E microscopic examination. The performance characteristics were determined by the [facility]. They have not been cleared or approved by the US Food and Drug Administration. The FDA has determined that such clearance or approval is not necessary. These tests are used for clinical purposes. They should not be regarded as investigational or for research. Appropriate positive and negative controls are performed and are acceptable. This report was transcribed using voice recognition technology and might contain unintended computerized unit aid errors. Performed By: #### [id number] # ### [address] [address] MAIN OR PACU II RECORD Observed: 025 12:16 PM Status: F Source: [facility] Main OR PACU II Record PACU Phase II Document Type FT Summary Primary Physician: Shaun WORLEY MD Finalized Date/Time: 09/28/24 14:59:28 Pt. Name: MARTINA DRIVER Court Parekh/Sex: 1940 Male Med Rec #: [id number] Physician: Shaun WORLEY MD Financial #: [id number] Pt. Type: O Room/Bed: [place] [address] Admit/Disch: 09/28/24 09:20:43 - Institution: Case Times PACU II FT Pre-Care Text: Identifies barriers to communication and implements measures to provide psychological support and determines knowledge level Develops individualized plan of care, and ensures continuity of care Maintains patient's dignity and privacy, and maintains patient confidentiality Identifies and reports philosophical, cultural, and spiritual beliefs and values Identifies individual values and wishes concerning care administers prescribed antibiotic therapy and immunizing agents as ordered, Evaluates postoperative tissue perfusion Implements thermoregulation measures, and monitors body temperature Evaluates postoperative respiratory status Evaluates postoperative cardiac status Evaluates postoperative neurological status Assesses pain control, collaborated in initiating patient-controlled analgesia and implements alternative methods of pain control Verifies allergies, administers prescribed medications and solutions, evaluates response to medications Entry 1 In PACU II 09/28/24 13:25:00 Discharge from PACU 09/28/24 14:45:00 II Outcomes Met? Yes Last Modified By: Renate Roberson 09/28/24 14:59:21 Post-Care Text: The patient demonstrates knowledge of the expected response to the operative or invasive procedure The patient's care is consistent with the individualized perioperative plan of care The patient's right to privacy is maintained The patient's value system, lifestyle, ethnicity, and culture are considered, respected, and incorporated into the perioperative plan of care The patient participates in decisions affecting his or her perioperative plan of care. The patient is free from signs and symptoms of infection The patient has wound/tissue perfusion consistent with or improved from baseline levels established preoperatively The patient is at or returning to normothermia at the conclusion of the immediate postoperative period The patient's respiratory function is consistent with or improved from baseline levels established preoperatively The patient's cardiovascular status is consistent with or improved from baseline levels established preoperatively The patient's neurological status is consistent with or improved from baseline levels established preoperatively The patient demonstrates and/or reports adequate pain control throughout the perioperative period The patient received appropriate medication(s), safely administered during the perioperative period Finalized By: Renate Roberson Document Signatures Signed By: Renate Roberson 09/28/24 14:59 MAIN OR PREOPERATIVE RECORD Observed: 12:16 PM Status: F Source: [facility] Main OR Preoperative Record PreOp Document Type FT Summary Primary Physician: Shaun WORLEY MD Finalized Date/Time: 09/28/24 12:57:43 Pt. Name: MARTINA DRIVER/Sex: 1940 Male Med Rec #: [id number] Physician: Shaun WORLEY MD Financial #: [id number] Pt. Type: A Room/Bed: AS09 Admit/Disch: 09/28/24 09:20:43 - Institution: Case Times PreOp FT Pre-Care Text: Verifies consent for planned procedure, identifies individual values and wishes concerning care, includes family members in perioperative teaching Entry 1 Patient Times. In Pre Surgery 09/28/24 09:30:00 Out Pre Surgery 09/28/24 12:02:00 Outcomes Met? Yes Last Modified By: Clive Mai 09/28/24 12:57:41 Post-Care Text: The patient participates in decisions affecting his or her perioperative plan of care Finalized By: Clive Mai Document Signatures Signed By: Clive Mai 09/28/24 12:57 MAIN OR INTRAOPERATIVE RECORD Observed: 09/28/2024 12:16 PM Status: C Source: [facility] Main OR Intraoperative Recor d IntraOp Document Type FT Summary Primary Physician: Shaun WORLEY MD Finalized Date/Time: 09/29/24 09:23:53 Pt. Name: MARTINA DRIVER/Sex: 1940 Male Med Rec #: [id number] Physician: Shaun WORLEY MD Financial #: [id number] Pt. Type: O Room/Bed: N309/16 Admit/Disch: 09/28/24 09:20:43 - Institution: Case Times FT Entry 1 Patient Times In Room 09/28/24 12:04:00 Out Room 09/28/24 12:48:00 Procedure Times Start 09/28/24 12:16:00 Stop 09/28/24 12:41:00 Anesthesia Times Start 09/28/24 12:04:00 Stop 09/28/24 12:48:00 Last Modified By: Clive Mai 09/28/24 12:52:46 General Comments: 09/29/24 Chart opened to review and send charges LRoth CSFA Case Attendance FT Entry 1 Entry 2 Entry 3 Case Attendee Enrique CAA, Eugene WORLEY MD, Christie Montgomery CRNA Role Performed Anesthesiologist Surgeon - Primary TABLE GAMES DUAL RATE SUPERVISOR President/[employer] Time In 09/28/24 12:12:00 09/28/24 12:04:00 09/28/24 12:04:00 Time Out 09/28/24 12:48:00 09/28/24 12:48:00 09/28/24 12:12:00 Procedure CYSTOSCOPY TURB(.) CYSTOSCOPY TURB(.) CYSTOSCOPY TURB(.) Comments DR SOUSA SUPERVISING DR SOUSA SUPERVISING Last Modified By: Clive Mai Terry T Sweene, Terry T 09/28/24 12:52:48 09/28/24 12:52:48 09/28/24 12:52:48 Entry 4 Entry 5 Case Attendee Clive Mai CST, Kimberly A Role Performed Home Child Care Provider - Primary Scrub - Primary Time In 09/28/24 12:04:00 09/28/24 12:04:00 Time Out 09/28/24 12:48:00 09/28/24 12:48:00 Procedure CYSTOSCOPY TURB(.) CYSTOSCOPY TURB(.) Comments KARISSA ROSENTHAL - STUDENT Last Modified By: Clive Mai Terry T 09/28/24 12:52:48 09/28/24 12:52:48 Perioperative Protocols FT Pre-Care Text: Implements protective measures prior to operative or invasive procedure, confirms identity before the operative or invasive procedure, verifies operative procedure, surgical site, and laterality Entry 1 Procedure(s) CYSTOSCOPY TURB(.) Patient Identity Birthday, ID Band Verified (select at Check, Patient least 2): Participation Consents / H and P Anesthesia Consent, Operative Site N/A Verified H&P, Surgery/Procedure Marking Verified Consent Surgical Site Yes Laterality Verified n/a Verified Procedure Verified Yes Correct Patient Yes Position Verified Availability Equipment Prep Dry n/a Verified (If Applicable) PreOp Antibiotic Yes Time Out Shaun WORLEY MD, Given Participants Christie Shine CRNA, Clive Mai, Kiko NGUYEN, Zina A Time Out Complete 09/28/24 12:16:00 Outcomes Met? Yes Last Modified By: Clive Mai 09/28/24 12:30:32 Post-Care Text: The patient is free from signs and symptoms of injury caused by extraneous objects Allergy Information FT Pre-Care Text: Verifies allergies Entry 1 Allergies Reviewed? Yes Allergies Reviewed Self/Patient With Outcomes Met? Yes Last Modified By: Clive Mai 09/28/24 12:30:39 Post-Care Text: The patient received appropriate medication(s) safely administered during the perioperative period Surgical Procedures FT Entry 1 Procedure Description Procedure CYSTOSCOPY TURB Modifiers . Surgeon Description CYSTO TURBT, FULGERAGTION Primary Procedure Yes Primary Surgeon Shaun WORLEY MD Start 09/28/24 12:16:00 Stop 09/28/24 12:41:00 Anesthesia Type General Surgical Service Urology Wound Class 2 - Clean-Contaminated Last Modified By: Clive Mai 09/28/24 12:52:52 General Case Data FT Pre-Care Text: Classifies surgical wound, implements aseptic technique, initiates traffic control Entry 1 Case Information OR OR 1 FT Case Level Level 3 Wound Class 2 - Clean-Contaminated Specialty Urology ASA Class 3 Preop Diagnosis BLADDER TUMOR, HISTORY Postop Same As Preop Yes OF BLADDER CANCER Postop Diagnosis BLADDER TUMOR, HISTORY Outcomes Met? Yes OF BLADDER CANCER Last Modified By: Clive Mai 09/28/24 12:30:58 Post-Care Text: The patient is free from signs and symptoms of infection Skin Assessment (Pre Procedure) FT Pre-Care Text: Implements protective measures to prevent skin/ tissue injury due to thermal or mechanical sources Evaluates for signs and symptoms of physical injury to skin and tissue Entry 1 Skin Integrity Intact, [place], Warm, & Skin Abnormality No Dry Outcomes Met? Yes Last Modified By: Clive Mai 09/28/24 12:31:06 Post-Care Text: The patient is free from signs and symptoms of injury caused by extraneous objects Patient Positioning FT Pre-Care Text: Identifies physical alterations that require additional precautions for procedure-specific positioning, verifies presence of prosthetics or corrective devices, positions the patient, evaluates the patient for signs and symptoms of injury as a result of positioning Entry 1 Procedure CYSTOSCOPY TURB(.) Body Position Low Lithotomy Feet Uncrossed? Yes Left Arm Position Extended on Padded Arm Board Right Arm Position Extended on Padded Arm Left Leg Position Secured in Stirrup Board Right Leg Position Secured in Stirrup Positioning Device Safety Strap, Stirrups Yellow Fins, Pillow Under Head Large Press Points Checked Yes By Clive Mai McClain CST, Kimberly A Outcomes Met? Yes Last Modified By: Clive Mai 09/28/24 12:31:50 Post-Care Text: The patient is free from signs and symptoms of injury related to positioning Patient Care Devices FT Pre-Care Text: Implements protective measures to prevent skin/ tissue injury due to thermal or mechanical sources Entry 1 Entry 2 Entry 3 Equipment Type CAUTERY UNIT INTELLICART SUCTION UNIT MISTRAL FORCED AIR WARMING SYSTEM UNIT Equipment Number C1 CART 1 M8 Equipment Setting 120/60 300 MM HG 43 C Outcomes Met? Yes Yes Yes Last Modified By: Clive Mai Terry T Sweene, Terry T 09/28/24 12:33:00 09/28/24 12:33:00 09/28/24 12:33:00 Entry 4 Entry 5 Entry 6 Equipment Type MONITOR CHARGE SURGERY PADDED STIRRUPS VENA FLOW UNIT Equipment Number Equipment Setting Outcomes Met? Yes Yes Yes Last Modified By: Clive Mai Terry T Sweene, Terry T 09/28/24 12:33:00 09/28/24 12:33:00 09/28/24 12:33:00 Entry 7 Equipment Type VIDEO SYSTEM Equipment Number Equipment Setting Outcomes Met? Yes Last Modified By: Clive Mai 09/28/24 12:33:00 Post-Care Text: The patient is free from signs and symptoms of injury caused by extraneous objects Transport To OR FT Pre-Care Text: Transports according to individual needs. Evaluates for signs and symptoms of skin and tissue injury as a result of transfer or transport Entry 1 Via Cart By Clive Mai Safety Precautions Side Rails Up Outcomes Met? Yes Last Modified By: Clive Mai 09/28/24 12:33:07 Post-Care Text: The patient is free from signs and symptoms of injury related to transfer/transport Cautery FT Pre-Care Text: Implements protective measures to prevent injury due to electrical sources, and evaluates for signs and symptoms of electrical injury Entry 1 ESU Identification ESU Type CAUTERY UNIT Equipment Number C1 ESU Settings Cut 120 Coag 60 ESU Grounding Pad Site Right Thigh Hair Removal Pad No Site Pre Pad Site Clear and Intact Post Pad Site Clear and Intact Condition Condition Grounding Pad Clive Mai Placed By Outcomes Met? Yes Last Modified By: Clive Mai 09/28/24 12:33:24 Post-Care Text: The patient if free from signs and symptoms of electrical injury Counts Verification FT Pre-Care Text: Performs required counts Entry 1 Procedure(s) CYSTOSCOPY TURB(.) Type Initial Items Instruments Status Correct Time 09/28/24 12:10:00 By Zina Hoover CST Outcomes Met? Yes Last Modified By: Clive Mai 09/28/24 12:33:52 Post-Care Text: The patient is free from signs and symptoms of injury caused by extraneous objects Skin Prep FT Pre-Care Text: Performs skin preparations Entry 1 Procedure CYSTOSCOPY TURB(.) Prep Area perineum Prep Agents Betadine Solution Hair Removal Methods Not Indicated By Zina Hoover CST Outcomes Met? Yes Last Modified By: Clive Mai 09/28/24 12:34:02 Post-Care Text: The patient is free from signs and symptoms of infection Departure From OR FT Pre-Care Text: Transports according to individual needs. Evaluates for signs and symptoms of skin and tissue injury as a result of transfer or transport. Entry 1 Via Patient Bed Safety Precautions Side Rails Up PostOp Destination PACU Transported By Clive Mai Patient Status Stable Report Given Onur-Saima RN, To/Hand Off Wendy Valentino Skin. Condition Intact, [place], Warm, & Dry Airway Maintenance Oxygen in Use? Yes Airway Device Simple Mask Flow Rate 8 L Outcomes Met? Yes Last Modified By: Clive Mai 09/28/24 12:58:32 Post-Care Text: The patient is free from signs and symptoms of injury related to transfer/transport General Comments: VERBAL AND WRITTEN HANDOFF REPORT GIVEN TO PACU NURSE. Mehrdad MAI RN. Medication Administration FT Pre-Care Text: Verifies allergies, administers prescribed medications and solutions, administers prescribed antibiotic therapy and immunizing agents as ordered, evaluates response to medications Administers prescribed medications and solutions Entry 1 Route of Admin Field Expiration Date Yes Verified Ordered By Shaun WORLEY MD Transcribed/To Clive Mai Field By Administered By Shaun WORLEY MD Outcomes Met? Yes Last Modified By: Clive Mai 09/28/24 12:35:06 Post-Care Text: The patient received appropriate medication(s) safely administered during the perioperative period For Delgado-Larue please see scanned medication reconcilliation form for medications used at the field during the procedure. Urinary Catheter Pre-Care Text: Patient is prepped using sterile technique. Entry 1 Urinary Catheter CATH VALVERDE SILICONE 5CC Present Upon Arrival No Inserted 2WY 18FR Insertion Date/Time 09/28/24 12:38:00 Insertion Site Uretheral Urine clear Inserted By Shaun WORLEY MD Characteristics Discontinued? No Outcomes Met? Yes Last Modified By: Clive Mai 09/28/24 12:53:48 Post-Care Text: The patient is free from signs of trauma. General Comments: leg bag attached. Mehrdad MAI RN. Cultures & Specimens FT Pre-Care Text: Manages specimen handling and disposition Manages culture specimen collection Entry 1 Cultures Ordered n/a Specimens Ordered Yes Specimen Disposition Designated OR Area Frozen Section Times Outcomes Met? Yes Last Modified By: Clive Mai 09/28/24 12:57:15 Post-Care Text: The patient is free from signs and symptoms of injury caused by extraneous objects The patient is free from signs and symptoms of infection Temperature Control Entry 1 Temperature Control BLANKET MISTRAL AIR Quantity 1 Aid PLUS UPPER BODY Fluid/[place] Unit Mistral warming system Setting 43 C Body Site Upper anterior torso Comments M8 Last Modified By: Clive Mai 09/28/24 12:36:09 Sign Out FT Entry 1 Before Patient Leaves OR Nurse verbally Yes Nurse verbally Yes confirms with the confirms with the team the name of team that the procedure(s) instrument, sponge, recorded and needle counts are correct (or N/A) Nurse verbally n/a Nurse verbally Yes confirms with the confirms with the team how the team whether there specimen is labeled are any equipment (including patient problems to be name), if applicable addressed Sign Out Complete 09/28/24 12:37:00 Last Modified By: Clive Mai 09/28/24 12:57:28 Case Comments <None> Finalized By: Marsha Whitney CST Document Signatures Signed By: Clive Mai 09/28/24 12:57 Clive Mai 09/28/24 12:58 Marsha Whitney CST 09/29/24 09:23 MAIN OR INTRAOPERATIVE RECORD Observed: 09/28/2024 12:16 PM Status: C Source: [facility] Main OR Intraoperative Recor d IntraOp Document Type FT Summary Primary Physician: Shaun WORLEY MD Finalized Date/Time: 09/28/24 12:58:34 Pt. Name: NEISHAMARTINA./Sex: 1940 Male Med Rec #: [id number] Physician: Shaun WORLEY MD Financial #: [id number] Pt. Type: A Room/Bed: [place] [address] Admit/Disch: 09/28/24 09:20:43 - Institution: Case Times FT Entry 1 Patient Times In Room 09/28/24 12:04:00 Out Room 09/28/24 12:48:00 Procedure Times Start 09/28/24 12:16:00 Stop 09/28/24 12:41:00 Anesthesia Times Start 09/28/24 12:04:00 Stop 09/28/24 12:48:00 Last Modified By: Clive Mai 09/28/24 12:52:46 Case Attendance FT Entry 1 Entry 2 Entry 3 Case Attendee Eugene Barbosa MD, Shaun Shine TABLE GAMES DUAL RATE SUPERVISORChristie Role Performed Anesthesiologist Surgeon - Primary TABLE GAMES DUAL RATE SUPERVISOR President/[employer] Time In 09/28/24 12:12:00 09/28/24 12:04:00 09/28/24 12:04:00 Time Out 09/28/24 12:48:00 09/28/24 12:48:00 09/28/24 12:12:00 Procedure CYSTOSCOPY TURB(.) CYSTOSCOPY TURB(.) CYSTOSCOPY TURB(.) Comments DR SOUSA SUPERVISING DR SOUSA SUPERVISING Last Modified By: Clive Mai Terry T Sweene, Terry T 09/28/24 12:52:48 09/28/24 12:52:48 09/28/24 12:52:48 Entry 4 Entry 5 Case Attendee Clive Mai CST, Kimberly A Role Performed Home Child Care Provider - Primary Scrub - Primary Time In 09/28/24 12:04:00 09/28/24 12:04:00 Time Out 09/28/24 12:48:00 09/28/24 12:48:00 Procedure CYSTOSCOPY TURB(.) CYSTOSCOPY TURB(.) Comments KARISSA ROSENTHAL - STUDENT Last Modified By: Clive Mai Terry T 09/28/24 12:52:48 09/28/24 12:52:48 Perioperative Protocols FT Pre-Care Text: Implements protective measures prior to operative or invasive procedure, confirms identity before the operative or invasive procedure, verifies operative procedure, surgical site, and laterality Entry 1 Procedure(s) CYSTOSCOPY TURB(.) Patient Identity Birthday, ID Band Verified (select at Check, Patient least 2): Participation Consents / H and P Anesthesia Consent, Operative Site N/A Verified H&P, Surgery/Procedure Marking Verified Consent Surgical Site Yes Laterality Verified n/a Verified Procedure Verified Yes Correct Patient Yes Position Verified Availability Equipment Prep Dry n/a Verified (If Applicable) PreOp Antibiotic Yes Time Out BRUNILDA PURCELL, Shaun P, Given Participants Christie Shine CRNA, Clive Mai McClain CST, Kimberly A Time Out Complete 09/28/24 12:16:00 Outcomes Met? Yes Last Modified By: Clive Mai 09/28/24 12:30:32 Post-Care Text: The patient is free from signs and symptoms of injury caused by extraneous objects Allergy Information FT Pre-Care Text: Verifies allergies Entry 1 Allergies Reviewed? Yes Allergies Reviewed Self/Patient With Outcomes Met? Yes Last Modified By: Clive Mai 09/28/24 12:30:39 Post-Care Text: The patient received appropriate medication(s) safely administered during the perioperative period Surgical Procedures FT Entry 1 Procedure Description Procedure CYSTOSCOPY TURB Modifiers . Surgeon Description CYSTO TURBT, FULGERAGTION Primary Procedure Yes Primary Surgeon BRUNILDA PURCELL, Shaun De La Cruz Start 09/28/24 12:16:00 Stop 09/28/24 12:41:00 Anesthesia Type General Surgical Service Urology Wound Class 2 - Clean-Contaminated Last Modified By: Clive Mai 09/28/24 12:52:52 General Case Data FT Pre-Care Text: Classifies surgical wound, implements aseptic technique, initiates traffic control Entry 1 Case Information OR OR 1 FT Case Level Level 3 Wound Class 2 - Clean-Contaminated Specialty Urology ASA Class 3 Preop Diagnosis BLADDER TUMOR, HISTORY Postop Same As Preop Yes OF BLADDER CANCER Postop Diagnosis BLADDER TUMOR, HISTORY Outcomes Met? Yes OF BLADDER CANCER Last Modified By: Clive Mai 09/28/24 12:30:58 Post-Care Text: The patient is free from signs and symptoms of infection Skin Assessment (Pre Procedure) FT Pre-Care Text: Implements protective measures to prevent skin/ tissue injury due to thermal or mechanical sources Evaluates for signs and symptoms of physical injury to skin and tissue Entry 1 Skin Integrity Intact, [place], Warm, & Skin Abnormality No Dry Outcomes Met? Yes Last Modified By: Clive Mai 09/28/24 12:31:06 Post-Care Text: The patient is free from signs and symptoms of injury caused by extraneous objects Patient Positioning FT Pre-Care Text: Identifies physical alterations that require additional precautions for procedure-specific positioning, verifies presence of prosthetics or corrective devices, positions the patient, evaluates the patient for signs and symptoms of injury as a result of positioning Entry 1 Procedure CYSTOSCOPY TURB(.) Body Position Low Lithotomy Feet Uncrossed? Yes Left Arm Position Extended on Padded Arm Board Right Arm Position Extended on Padded Arm Left Leg Position Secured in Stirrup Board Right Leg Position Secured in Stirrup Positioning Device Safety Strap, Stirrups Yellow Fins, Pillow Under Head Large Press Points Checked Yes By Clive Mai McClain CST, Kimberly A Outcomes Met? Yes Last Modified By: Clive Mai 09/28/24 12:31:50 Post-Care Text: The patient is free from signs and symptoms of injury related to positioning Patient Care Devices FT Pre-Care Text: Implements protective measures to prevent skin/ tissue injury due to thermal or mechanical sources Entry 1 Entry 2 Entry 3 Equipment Type CAUTERY UNIT INTELLICART SUCTION UNIT MISTRAL FORCED AIR WARMING SYSTEM UNIT Equipment Number C1 CART 1 M8 Equipment Setting 120/60 300 MM HG 43 C Outcomes Met? Yes Yes Yes Last Modified By: Clive Mai Terry T Sweene, Terry T 09/28/24 12:33:00 09/28/24 12:33:00 09/28/24 12:33:00 Entry 4 Entry 5 Entry 6 Equipment Type MONITOR CHARGE SURGERY PADDED STIRRUPS VENA FLOW UNIT Equipment Number Equipment Setting Outcomes Met? Yes Yes Yes Last Modified By: Clive aMi Terry T Sweene, Terry T 09/28/24 12:33:00 09/28/24 12:33:00 09/28/24 12:33:00 Entry 7 Equipment Type VIDEO SYSTEM Equipment Number Equipment Setting Outcomes Met? Yes Last Modified By: Clive Mai 09/28/24 12:33:00 Post-Care Text: The patient is free from signs and symptoms of injury caused by extraneous objects Transport To OR FT Pre-Care Text: Transports according to individual needs. Evaluates for signs and symptoms of skin and tissue injury as a result of transfer or transport Entry 1 Via Cart By Clive Mai Safety Precautions Side Rails Up Outcomes Met? Yes Last Modified By: Clive Mai 09/28/24 12:33:07 Post-Care Text: The patient is free from signs and symptoms of injury related to transfer/transport Cautery FT Pre-Care Text: Implements protective measures to prevent injury due to electrical sources, and evaluates for signs and symptoms of electrical injury Entry 1 ESU Identification ESU Type CAUTERY UNIT Equipment Number C1 ESU Settings Cut 120 Coag 60 ESU Grounding Pad Site Right Thigh Hair Removal Pad No Site Pre Pad Site Clear and Intact Post Pad Site Clear and Intact Condition Condition Grounding Pad Clive Mai Placed By Outcomes Met? Yes Last Modified By: Clive Mai 09/28/24 12:33:24 Post-Care Text: The patient if free from signs and symptoms of electrical injury Counts Verification FT Pre-Care Text: Performs required counts Entry 1 Procedure(s) CYSTOSCOPY TURB(.) Type Initial Items Instruments Status Correct Time 09/28/24 12:10:00 By Zina Hoover CST Outcomes Met? Yes Last Modified By: Clive Mai 09/28/24 12:33:52 Post-Care Text: The patient is free from signs and symptoms of injury caused by extraneous objects Skin Prep FT Pre-Care Text: Performs skin preparations Entry 1 Procedure CYSTOSCOPY TURB(.) Prep Area perineum Prep Agents Betadine Solution Hair Removal Methods Not Indicated By Zina Hoover CST Outcomes Met? Yes Last Modified By: Clive Mai 09/28/24 12:34:02 Post-Care Text: The patient is free from signs and symptoms of infection Departure From OR FT Pre-Care Text: Transports according to individual needs. Evaluates for signs and symptoms of skin and tissue injury as a result of transfer or transport. Entry 1 Via Patient Bed Safety Precautions Side Rails Up PostOp Destination PACU Transported By Clive Mai Patient Status Stable Report Given Onur-Saima RN, To/Hand Off [facility] Skin. Condition Intact, [place], Warm, & Dry Airway Maintenance Oxygen in Use? Yes Airway Device Simple Mask Flow Rate 8 L Outcomes Met? Yes Last Modified By: Clive Mai 09/28/24 12:58:32 Post-Care Text: The patient is free from signs and symptoms of injury related to transfer/transport General Comments: VERBAL AND WRITTEN HANDOFF REPORT GIVEN TO PACU NURSE. Mehrdad MAI RN. Medication Administration FT Pre-Care Text: Verifies allergies, administers prescribed medications and solutions, administers prescribed antibiotic therapy and immunizing agents as ordered, evaluates response to medications Administers prescribed medications and solutions Entry 1 Route of Admin Field Expiration Date Yes Verified Ordered By Shaun WORLEY MD Transcribed/To Clive Mai Field By Administered By Shaun WORLEY MD Outcomes Met? Yes Last Modified By: Clive Mai 09/28/24 12:35:06 Post-Care Text: The patient received appropriate medication(s) safely administered during the perioperative period For Delgado-German please see scanned medication reconcilliation form for medications used at the field during the procedure. Urinary Catheter Pre-Care Text: Patient is prepped using sterile technique. Entry 1 Urinary Catheter CATH VALVERDE SILICONE 5CC Present Upon Arrival No Inserted 2WY 18FR Insertion Date/Time 09/28/24 12:38:00 Insertion Site Uretheral Urine clear Inserted By Shaun WORLEY MD Characteristics Discontinued? No Outcomes Met? Yes Last Modified By: Clive Mai 09/28/24 12:53:48 Post-Care Text: The patient is free from signs of trauma. General Comments: leg bag attached. T BRYNN RN. Cultures & Specimens FT Pre-Care Text: Manages specimen handling and disposition Manages culture specimen collection Entry 1 Cultures Ordered n/a Specimens Ordered Yes Specimen Disposition Designated OR Area Frozen Section Times Outcomes Met? Yes Last Modified By: Clive Mai 09/28/24 12:57:15 Post-Care Text: The patient is free from signs and symptoms of injury caused by extraneous objects The patient is free from signs and symptoms of infection Temperature Control Entry 1 Temperature Control BLANKET MISTRAL AIR Quantity 1 Aid PLUS UPPER BODY Fluid/[place] Unit Mistral warming system Setting 43 C Body Site Upper anterior torso Comments M8 Last Modified By: Clive Mai 09/28/24 12:36:09 Sign Out FT Entry 1 Before Patient Leaves OR Nurse verbally Yes Nurse verbally Yes confirms with the confirms with the team the name of team that the procedure(s) instrument, sponge, recorded and needle counts are correct (or N/A) Nurse verbally n/a Nurse verbally Yes confirms with the confirms with the team how the team whether there specimen is labeled are any equipment (including patient problems to be name), if applicable addressed Sign Out Complete 09/28/24 12:37:00 Last Modified By: Clive Mai 09/28/24 12:57:28 Case Comments <None> Finalized By: Clive Mai Document Signatures Signed By: Clive Mai 09/28/24 12:57 Clive Mai 09/28/24 12:58 MAIN OR PACU I RECORD Observed: 09/29/19 12:16 PM Status: C Source: [facility] Main OR PACU I Record PACU Phase I Document Type FT Summary Primary Physician: Shaun WORLEY MD Finalized Date/Time: 09/28/24 13:48:20 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 Type: A Room/Bed: [facility] Admit/Disch: 09/28/24 09:20:43 - Institution: Case Times PACU I FT Pre-Care Text: Identifies barriers to communication and implements measures to provide psychological support Develops individualized plan of care, and ensures continuity of care Maintains patient's dignity and privacy, and maintains patient confidentiality Identifies and reports philosophical, cultural, and spiritual beliefs and values Identifies individual values and wishes concerning care Implements aseptic technique, and administers prescribed antibiotic therapy and immunizing agents as ordered Evaluates postoperative tissue perfusion Implements thermoregulation measures, and monitors body temperature Evaluates postoperative respiratory status Evaluates postoperative cardiac status Evaluates postoperative neurological status Assesses pain control, collaborated in initiating patient-controlled analgesia and implements alternative methods of pain control Verifies allergies, administers prescribed medications and solutions, evaluates response to medications Entry 1 In PACU I 09/28/24 12:50:00 Discharge from PACU 09/28/24 13:20:00 I Outcomes Met? Yes Last Modified By: Wendy Mccann RN 09/28/24 13:47:31 Post-Care Text: The patient demonstrates knowledge of the expected response to the operative or invasive procedure The patient's care is consistent with the individualized perioperative plan of care The patient's right to privacy is maintained The patient's value system, lifestyle, ethnicity, and culture are considered, respected, and incorporated into the perioperative plan of care The patient participates in decisions affecting his or her perioperative plan of care The patient is free from signs and symptoms of infection The patient has wound/tissue perfusion consistent with or improved from baseline levels established preoperatively The patient is at or returning to normothermia at the conclusion of the immediate postoperative period The patient's respiratory function is consistent with or improved from baseline levels established preoperatively The patient's cardiovascular status is consistent with or improved from baseline levels established preoperatively The patient's cardiovascular status is consistent with or improved from baseline levels established preoperatively The patient demonstrates and/or reports adequate pain control throughout the perioperative period The patient received appropriate medication(s), safely administered during the perioperative period Acuity Level PACU I FT Entry 1 Start Time 09/28/24 12:50:00 Stop Time 09/28/24 13:20:00 Acuity Level Acuity Level I Last Modified By: Wendy Mccann RN 09/28/24 13:47:44 Finalized By: Wendy Mccann RN Document Signatures Signed By: Wendy Mccann RN 09/28/24 13:47 Wendy Mccann RN 09/28/24 13:48 CAPILLARY GLUCOSE POC Collected: 2024 10:02 AM Status: F Source: [facility] TYPE CODE TESTS RESULT OUT OF RANGE REFERENCE UNITS LAB 2340-8([facility]) GLUCOSE:MCNC: PT:BLD:SEMIQN :TEST STRIP.AUTOMAT ED 116 High 55-99 mg/dL Result Comment: Notified RN/ MD Performed By: #### [id number] #### [facility] [address] [place] [address] PROGRESS NOTE-PHYSICIAN Observed: 2024 12:03 PM Status: F Source: [facility] Progress Note-Physician 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 Anesthesia history: Patient history: None. Family history+: None. Informed consent: Signed by patient. Re-evaluation prior to induction: Initial evaluation reviewed: No significant change. Review of Systems Eye Ear/Nose/Mouth/Throat Respiratory: No shortness of breath, No cough. Cardiovascular: Bradycardia, No chest pain, No syncope. Gastrointestinal: No heartburn. Musculoskeletal Neurologic Health Status Allergies: Allergic Reactions (Selected) No Known Allergies No Known Medication Allergies, Allergies (2) Active Severity Reaction No Known Allergies None Documented No Known Medication Allergies None Documented Current medications: (Selected) Documented Medications Documented Klor-Con M20: 20 mEq, Oral, BID, Refills(s) 0, Prophylaxis Lipitor 40 mg Tab: 40 mg = 1 tab(s), Oral, Once a day (at bedtime), Refills(s) 0, High cholesterol Novolin 70/30: 30 unit(s), SubCutaneous, BIDAC, Refill(s) 0, as directed, Blood glucose Trelegy Ellipta 100 mcg-62.5 mcg-25 mcg inhalation powder: = 1 puff(s), Inhalation, Daily, Refills(s) 0, COPD aspirin 81 mg Oral EC Tab: 81 mg = 1 tab(s), Oral, Daily, Refills(s) 0, Prophylaxis clopidogrel 75 mg Tab: 75 mg = 1 tab(s), Oral, Daily, Blood Thinner isosorbide mononitrate 30 mg ER Tab: 30 mg = 1 tab(s), Oral, qAM, Refills(s) 0, High blood pressure lisinopril 2.5 mg Tab: 2.5 mg = 1 tab(s), Oral, Daily, Refills(s) 0, High blood pressure metformin: 500 mg, Oral, BID, Refills(s) 0, Blood glucose metoprolol 25 mg ER Tab: 25 mg = 1 tab(s), Oral, Bedtime, High blood pressure, Home Medications (10) Active aspirin 81 mg Oral EC Tab 81 mg = 1 tab(s), Oral, Daily clopidogrel 75 mg Tab 75 mg = 1 tab(s), Oral, Daily isosorbide mononitrate 30 mg ER Tab 30 mg = 1 tab(s), Oral, qAM Klor-Con M20 20 mEq, Oral, BID Lipitor 40 mg Tab 40 mg = 1 tab(s), Oral, Once a day (at bedtime) lisinopril 2.5 mg Tab 2.5 mg = 1 tab(s), Oral, Daily metformin 500 mg, Oral, BID metoprolol 25 mg ER Tab 25 mg = 1 tab(s), Oral, Bedtime Novolin 70/30 30 unit(s), SubCutaneous, BIDAC Trelegy Ellipta 100 mcg-62.5 mcg-25 mcg inhalation powder 1 puff(s), Inhalation, Daily , No qualifying data available Problem list: All Problems Arthritis / SNOMED CT 1969173 / Confirmed 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 urinary tract symptoms / SNOMED CT 6484139276 / Confirmed Bilateral renal atrophy / SNOMED CT 198122098 / Confirmed Bladder mass / SNOMED CT 6971584085 / Confirmed Bladder tumor / SNOMED CT 562263 / Confirmed BMI 37.0-37.9, adult / SNOMED CT 362945532 / Confirmed Bradycardia / SNOMED CT 33827085 / Confirmed BXO (balanitis xerotica obliterans) / SNOMED CT 524509610 / Confirmed CAD (coronary artery disease) / SNOMED CT 01061207 / Confirmed 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 Cardiomegaly / SNOMED CT 45579108 / Confirmed Cerebral atrophy / SNOMED CT 125558287 / Confirmed Chronic cystitis / SNOMED CT 56877177 / Confirmed Chronic obstructive pulmonary disease / SNOMED CT 89780348 / Confirmed CKD (chronic kidney disease) / SNOMED CT 7754371181 / Confirmed Congestive heart failure / SNOMED CT 97998647 / Confirmed Deafness / SNOMED CT 62640066 / Confirmed Diabetes / SNOMED CT 973649238 / Confirmed Diabetic neuropathy / SNOMED CT 1613795658 / Confirmed Diverticular disease / SNOMED CT 4350377783 / Confirmed Dysuria / SNOMED CT 65212377 / Confirmed Former pipe smoker / SNOMED CT 576096699 / Confirmed Glucosuria / SNOMED CT 06996255 / Confirmed Gross hematuria / SNOMED CT 426622105 / Confirmed Headaches due to old head injury / SNOMED CT 78071777 / Confirmed Heart disease / SNOMED CT 38595180 / Confirmed History of bladder cancer / SNOMED CT 5921239590 / Confirmed History of colon polyps / SNOMED CT 7276544456 / Confirmed Hyperlipidemia / SNOMED CT 23213887 / Confirmed Hypertension / SNOMED CT 2600682594 / Confirmed Impotence / SNOMED CT 4352668145 / Confirmed Isolated proteinuria / SNOMED CT 4824209707 / Confirmed Kidney stones / SNOMED CT 696726075 / Confirmed Microscopic hematuria / SNOMED CT 469985440 / Confirmed Morbid obesity / SNOMED CT 184196452 / Confirmed Nocturia / SNOMED CT 117837579 / Confirmed Penile edema / SNOMED CT 102431700 / Confirmed Personal history of kidney stones / SNOMED CT 9726758200 / Confirmed Phimosis / SNOMED CT 4767948150 / Confirmed Positive fecal occult blood test / SNOMED CT 26392850 / Confirmed Postprocedural fossa navicularis urethral stricture / SNOMED CT 818618760 / Confirmed Proteinuria / SNOMED CT 60795968 / Confirmed Rheumatoid arthritis / SNOMED CT 608303546 / Confirmed SOB (shortness of breath) / SNOMED CT 156265120 / Confirmed Tobacco use / SNOMED CT 1665826916 / Confirmed UTI (urinary tract infection) / SNOMED CT 638808009 / Confirmed Ventricular hypertrophy / SNOMED CT 678803801 / Confirmed Weak urinary stream / SNOMED CT 044245687 / Confirmed Wound of skin / SNOMED CT 310915880 / Confirmed Resolved: Anticoagulant long-term use / SNOMED CT 3940276022 Resolved: Anticoagulated / SNOMED CT 818779802 Resolved: Ex-cigarette smoker / SNOMED CT 800314620, Active Problems (49) 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 tract symptoms Bilateral renal atrophy Bladder mass Bladder tumor BMI 37.0-37.9, adult Bradycardia BXO (balanitis xerotica obliterans) CAD (coronary artery disease) Calciphylaxis Cardiomegaly Cerebral atrophy Chronic cystitis Chronic obstructive pulmonary disease CKD (chronic kidney disease) Congestive heart failure Deafness Diabetes Diabetic neuropathy Diverticular disease Dysuria Former pipe smoker Glucosuria Gross hematuria Headaches due to old head injury Heart disease History of bladder cancer History of colon polyps Hyperlipidemia Hypertension Impotence Isolated proteinuria Kidney stones Microscopic hematuria Morbid obesity Nocturia Penile edema Personal history of kidney stones Phimosis Positive fecal occult blood test Postprocedural fossa navicularis urethral stricture Proteinuria Rheumatoid arthritis SOB (shortness of breath) Tobacco use UTI (urinary tract infection) Ventricular hypertrophy Weak urinary stream Wound of skin Histories Past Medical History: Resolved Anticoagulant long-term use (3615737946): Resolved. Ex-cigarette smoker (535452197): Resolved. Anticoagulated (221682992): Resolved. Family History: Asthma Mother Hypertension Mother Congenital heart disease Mother Cancer Father Procedure history: Cystoscopy ([id number]) on 09/18/2024 at 84 Years. Cystoscopy ([id number]) on 04/26/2023 at 83 Years. Cystoscopy ([id number]) on 01/29/2022 at 81 Years. TURBT - Transurethral resection of bladder tumor ([id number]) on 10/23/2021 at 81 Years. Circumcision ([id number]) on 12/13/2019 at 79 Years. Colonoscopy ([id number]) on 03/09/2016 at 75 Years. Cystoscopy/TURBT ([id number]) on 12/06/2014 at 74 Years. Cystoscopy ([id number]) on 11/20/2014 at 74 Years. Lithotripsy/ Left ESWL (392063694) on 01/30/2010 at 69 Years. Colonoscopy ([id number]) on 06/05/2009 at 69 Years. Total knee replacement (3327076852). Comments: 03/05/2015 16:45 EDT Mariam PERDOMO, RN, Alycia left Knee derangement ([id number]). Comments: 03/05/2015 16:46 EDT Mariam PERDOMO, RN, Alycia right Cataract extraction and insertion of intraocular lens ([id number]). Arthroscopy of knee (091609751). Mastoidectomy (80977239). Cardiac catheterization (74840552). Placement of stent in cardiac conduit (1746431623). Social History Social & Psychosocial Habits Alcohol 09/20/2024 Risk Assessment: Denies Alcohol Use 09/20/2024 Use: Current Type: Beer Frequency: 1-2 times per year Substance Abuse 09/20/2024 Risk Assessment: Denies Substance Abuse Tobacco 09/20/2024 Risk Assessment: Denies Tobacco Use 09/20/2024 Tobacco Use: Cigars or pipes but not d, Former smoker, quit more Smokeless tobacco use: Never Type: Pipe Comment: former pipe smoker about 20 years ago - 09/20/2024 08:52 - Saundra STACY, Naila Hearn Physical Examination No qualifying data available Airway: Mallampati classification: II (soft palate, fauces, uvula visible). Respiratory: Lungs are clear to auscultation, Respirations are non-labored, adequate air exchange. Cardiovascular: Regular rhythm, No murmur, no JVD or edema . Review / Management Results review: No qualifying data available . Interpretation: reviwed 2024 Holter, 2021 TTE and 2020 Cath report. Plan [place] [employer] (ASA) physical status classification: Class III. Anesthetic Preoperative Plan: Anesthesia General. Result Comment: Electronical ly Signed By: Lars PURCELL, Marcio Hobson\.br\Date and Time Signed: 09/28/24 12:21 EDT PT & PTT Collected: 9:07 AM Status: F Source: [facility] TYPE CODE TESTS RESULT OUT OF RANGE REFERENCE UNITS LAB 5902-2([facility]) COAGULATION TISSUE FACTOR INDUCED:TIME:P T:PPP:QN:COAG 12.1 Normal 9.4-12.5 second(s ) Result Comment: 15 days - 4 weeks 1 - 5 months 6 -11 months 1 ??? 5 years 6 ??? 10 years 11 -17 years Mean: 11.2 (9.5 ??? 12.6) Mean: 11.0 (9.7 ??? 12.8) Mean: 11.0 (9.8 ??? 13.0) Mean: 11.3 (9.9 ??? 13.4) Mean: 11.7 (10.0 ??? 14.6) Mean: 11.8 (10.0 - 14.1) Pediatric Reference ranges were obtained from a study by gilberto Zarate al. prepared from 1437 samples obtained at 7 different centers using the same coagulation reagent and instrumentation as [facility] [place]. Currently there are no coagulation studies available worldwide for children to 14 days, and no normal ranges. LAB 08852-5([facility]) COAGULATION SURFACE INDUCED:TIME:P T:PPP:QN:COAG 28.0 Normal 25.1-36.5 second(s ) Result Comment: Parameter 15 days - 4 weeks 1 - 5 months 6 - 11 months 1 - 5 years 6 - 10 years 11 - 17 years PTT Mean: 35.4 (27.6-45.6) Mean: 33.5 (24.8-40.7) Mean: 32.4 (25.1-40.7) Mean: 31.6 (24.0-39.2) Mean: 31.6 (26.9-38.7) Mean: 31.0 (24.6-38.4) Pediatric Reference ranges were obtained from a study by Jose Chan et al. prepared from 1437 samples obtained at 7 different centers using the same coagulation reagent and instrumentation as [facility] [place]. Currently there are no coagulation studies available worldwide for children to 14 days, and no normal ranges. Heparin therapeutic range (represented by Anti-Factor Xa activity of 0.2 - 0.4 U/mL) corresponds to PTT of 56.6 - 109.0 sec. LAB 6301-6([facility]) COAGULATION TISSUE FACTOR INDUCED.INR:RE LTIME:PT:PPP:Q N:COAG 1.08 Unknown Result Comment: INR results are specifically intended to assess patients stabilized on long-term Anticoagulation therapy suggested INR???s ???Less Intensive Anticoagulation??? 2.0 ??? 3.0 Conventional Range 3.0 ??? 4.5 Performed By: #### [id number] #### [facility] [address] [place] [address] [facility] Collected: 9:07 AM Status: F Source: [facility] TYPE CODE TESTS RESULT OUT OF RANGE REFERENCE UNITS LAB 2345-7([facility]) GLUCOSE:MCNC :PT:SER/PLAS :QN: 158 Normal 55-199 mg/dL LAB 3094-0([facility]) UREA NITROGEN:MCN C:PT:SER/JUDI S:QN: 44 High 5-21 mg/dL LAB 2160-0([facility]) CREATININE:M CNC:PT:SER/P LAS:QN: 1.8 High 0.5-1.3 mg/dL LAB 3097-3([facility]) UREA NITROGEN/CRE ATININE:MRTO :PT:SER/PLAS :QN: 24 High 10-20 No Units LAB 06266-2([facility]) CALCIUM:MCNC :PT:SER/PLAS :QN: 8.6 Low 8.9-11.1 mg/dL LAB 2951-2([facility]) SODIUM:SCNC: PT:SER/PLAS: QN: 141 Normal 135-145 mmol/L LAB 2823-3([facility]) POTASSIUM:SC NC:PT:SER/PL :QN: 4.3 Normal 3.5-5.3 mmol/L LAB 2075-0([facility]) CHLORIDE:SCN C:PT:SER/JUDI S:QN: 108 Normal 101-111 mmol/L LAB 8-9([facility]) CARBON DIOXIDE:SCNC :PT:SER/PLAS :QN: 25 Normal 21-31 mmol/L LAB 25038-5([facility]) ANION GAP:SCNC:PT: SER/PLAS:QN: 12 Normal 6-16 mEq/L Performed By: #### [id number] # ### [facility] [address] [place] [address] EGFR Collected: 9:07 AM Status: F Source: [facility] TYPE CODE TESTS RESULT OUT OF RANGE REFERENCE UNITS LAB [id number]([facility]) eGFR 36 Low >=59 mL/min/1 .7 3 m2 Performed By: #### [id number] #### [facility] [address] [place] [address] CBC W/ AUTO DIFF Collected: 09/20/2024 9:07 AM Statu s: F Source: [facility] TYPE CODE TESTS RESULT OUT OF RANGE REFERENCE UNITS LAB 44415-3([facility]) LEUKOCYTES^^MARTHA ECTED FOR NUCLEATED ERYTHROCYTES:NCN C:PT:BLD:QN:AUTO MATED COUNT 7.6 Normal 4.0-11.0 E9/L LAB 789-8([facility]) ERYTHROCYTES:NCN C:PT:BLD:QN:AUTO MATED COUNT 4.1 Low 4.3-5.9 E12/L LAB 718-7([facility]) HEMOGLOBIN:MCNC: PT:BLD:QN: 13.1 Low 13.5-17.5 gm/dL LAB 4544-3([facility]) HEMATOCRIT:VFR:P T:BLD:QN:AUTOMAT ED COUNT 38.9 Normal 37.7-49.0 % LAB 788-0([facility]) ERYTHROCYTE DISTRIBUTION WIDTH:RATIO:PT:R BC:QN:AUTOMATED COUNT 15.0 High 10.9-14.2 % LAB 785-6([facility]) ERYTHROCYTE MEAN CORPUSCULAR HEMOGLOBIN:ENTMA SS:PT:RBC:QN:AUT OMATED COUNT 31.7 Normal 27.0-34.0 pg LAB 786-4([facility]) ERYTHROCYTE MEAN CORPUSCULAR HEMOGLOBIN CONCENTRATION:MC NC:PT:RBC:QN:AUT OMATED COUNT 33.8 Normal 31.4-36.0 gm/dL LAB 787-2([facility]) ERYTHROCYTE MEAN CORPUSCULAR VOLUME:ENTVOL:PT :RBC:QN:AUTOMATE D COUNT 93.8 Normal 80.0-100.0 fL LAB 94995-3([facility]) PLATELET MEAN VOLUME:ENTVOL:PT :BLD:QN:AUTOMATE D COUNT 8.6 Normal 6.4-10.8 fL LAB [id number]([facility]) Platelet 180.0 Normal 150.0-500.0 E9/ L LAB 22228-8([facility]) NEUTROPHILS/100 LEUKOCYTES:NFR:P T:BLD:QN: 63.7 Normal 36.0-75.0 % LAB 731-0([facility]) LYMPHOCYTES:NCNC :PT:BLD:QN:AUTOM ATED COUNT 21.5 Normal 14.0-50.0 % LAB 742-7([facility]) MONOCYTES:NCNC:P T:BLD:QN:AUTOMAT ED COUNT 0.6 Normal 0.2-1.0 E9/L LAB 713-8([facility]) EOSINOPHILS/100 LEUKOCYTES:NFR:P T:BLD:QN:AUTOMAT ED COUNT 5.6 Normal 0.0-8.0 % LAB 704-7([facility]) BASOPHILS:NCNC:P T:BLD:QN:AUTOMAT ED COUNT 0.7 Normal 0.0-2.0 % LAB 751-8([facility]) NEUTROPHILS:NCNC :PT:BLD:QN:AUTOM ATED COUNT 4.8 Normal 2.0-7.5 E9/L LAB 59750-2([facility]) LYMPHOCYTES:NCNC :PT:BLD:QN: 1.6 Normal 1.0-4.0 E9/L LAB 47728-1([facility]) EOSINOPHILS:NCNC :PT:BLD:QN: 0.4 Normal 0.0-0.5 E9/L LAB 35250-1([facility]) BASOPHILS/LEUKOC YTES:NFR.DF:PT:B LD:QN:AUTOMATED COUNT 0.1 Normal 0.0-0.2 E9/L Performed By: #### [id number] # ### [facility] [address] [place] [address] UA WITH CULT RFLX Collected: 5 9:07 AM Status: F Source: [facility] TYPE CODE TESTS RESULT OUT OF RANGE REFERENCE UNITS LAB 9194-2([facility]) CLASS:TYPE:PT: URINE COLLECTION METHOD:NOM:* Clean Catch Normal LAB 67296-8([facility]) COLOR:TYPE:PT: URINE:NOM:AUTO Light-Yello w Normal Yellow Result Comment: Microscopic readings are only performed on those samples that meet specific criteria set forth by [facility]. LAB 19002-5([facility]) CLARITY:TYPE:P T:URINE:NOM: Clear Normal Clear LAB 5811-5([facility]) SPECIFIC GRAVITY:RDEN:P T:URINE:SEMIQN :TEST STRIP 1.015 Unknown 1.005-1.030 LAB 5803-2([facility]) PH:LSCNC:PT:UR INE:SEMIQN:ANTON T STRIP 5.5 Unknown 5.0-9.0 LAB 72658-0([facility]) PROTEIN:PRTHR: PT:URINE:ORD:T EST STRIP Trace Abnormal Negative mg/dL LAB 57941-9([facility]) GLUCOSE:PRTHR: PT:URINE:ORD:T EST STRIP Negative Normal Negative mg/dL LAB 31110-3([facility]) KETONES:PRTHR: PT:URINE:ORD:T EST STRIP.AUTOMATE D Negative Normal Negative mg/dL LAB 48099-8([facility]) BILIRUBIN:PRTH R:PT:URINE:ORD :TEST STRIP.AUTOMATE D Negative Normal Negative mg/dL LAB 42597-4([facility]) HEMOGLOBIN:MCN C:PT:URINE:MAISHA IQN:TEST STRIP.AUTOMATE D Negative Normal Negative mg/dL LAB 14368-8([facility]) NITRITE:PRTHR: PT:URINE:ORD:T EST STRIP.AUTOMATE D Negative Normal Negative mg/dL LAB 99726-5([facility]) UROBILINOGEN:M CNC:PT:URINE:S EMIQN:TEST STRIP Negative Normal Negative mg/dL LAB 46355-6([facility]) LEUKOCYTE ESTERASE:PRTHR :PT:URINE:ORD: TEST STRIP.AUTOMATE D Negative Normal Negative CD:[id number] Performed By: #### [id number] #### [facility] [address] [place] [address] UROVYSION FISH AND URINE CYT O ( LABS) Collected: 09/18/2024 3:56 PM Status: F Source: [facility] TYPE CODE TESTS RESULT OUT OF RANGE REFERENCE UNITS LAB CD:[id number]( [facility]) UVFISH & UC Diagnosis Info Unknown Result Comment: A:Urine,Urin e:Voided Diagnosis Summary - Occasional atypical urothelial cells with degenerative changes. Diagnosis Summary - The UroVysion FISH test resulted in a NORMAL profile with noted comments. According to the product insert and FDA approval, positive results must have aneuploidy of two or more centromeric probes in at least 4 cells or deletion of the 9p21 locus in at least 12 cells. These criteria were not met and at least 203 urothelial cells were scored. However, there were limited three molecular events that are abnormal in this specimen. Close monitoring and follow-up are recommended due to these abnormal events. These findings should be correlated with cytology and cystoscopy. If clinically indicated, a repeat UroVysion FISH test and continued follow-up are recommended. Microscopic Notes - Microscopic Notes - Abnormal cells 9p21 deletions: Abnormal cells aneploid events: Total cells analyzed: 203 Hematuria: Gross Description Site ID:A color Yellow fixative Alcohol Received 100 mls of clear yellow fluid with the patient's name and, Urine on the vial. Electronically signed by : on: 09/27/2024 09:58:38 LAB CD:[id number]( [facility]) UVUC Number of Jars 1 Unknown LAB CD:[id number]( [facility]) [facility] Type of Service Technical Only Normal LAB CD:[id number]( [facility]) [facility] Method of Extraction Voided Normal LAB CD:[id number]( [facility]) [facility] Specimen Urine Normal Performed By: #### [id number] #### [facility] [address] [place] [address] UROLOGY OFFICE/CLINIC NOTE Observed: 09/2024 2:19 PM Status: F Source: [facility] Urology Office/Clinic Note Chief Complaint Cysto HPI Staff Here for cysto. Abx taken. History of Present Illness Tests reviewed: reviewed FISH/cytol. I have reviewed the previous health record information and history for this patient from Dr. Worley I have reviewed and verified the staff HPI to be accurate for this encounter. There have been no associated fever, chills, flank pain, or blood in the urine. Denies any urinary infections since last encounter. Review of Systems PHQ Score Initial Depression Screen Score: 0 SCORE ROS - Provider Constitutional: denies weight loss, denies hot flashes. Eyes: denies eye problems. Gastrointestinal: denies nausea, denies vomiting. Cardiovascular: denies chest pain or angina. Integumentary: no dryness Musculoskeletal: denies musculoskeletal symptoms. ENMT: denies otolaryngeal symptoms. Respiratory: no shortness of breath. Heme/Lymph: denies easy bleeding tendency, denies easy bruising tendency. Psychiatric: no confusion, no anxiety. Genitourinary: See HPI. Procedure Operative Information Anesthesia Type: Local Procedure: Local Cystoscopy Complications: None Surgical risks, benefits, details of the procedure have been explained to the patient. Full informed consent has been obtained. Intraoperative Information Prepped: Patient is brought back to the endoscopy suite. Patient is placed in supine position. Patient prepped in the usual fashion with Betadine solution. 2% Xylocaine Jelly is placed per Urethra. After waiting several minutes, the Cystoscope is introduced. The Urethra is: Normal The Prostatic Urethra is: 3 cm long, moderate lateral lobe. The Bladder: retained urine, small area of micropapillary tumor, left anterior, 5 mm, 1 cm area lateral to that. Trabeculated: _ The Ureteral orifices: Show efflux of clear urine Specimens Removed: Voided specimen sent for FISH and Cytology test Removal: Cystoscope is removed. The patient tolerated it well. Postoperative Information Patient is discharged home with antibiotic coverage. Follow up arranged. Assessment/Plan Prior IPSS 5 Discussed options with pt and his daughter including cysto/TURBT vs continued surveillance. Portions of this record may have been created with voice recognition artificial intelligence software, specifically [employer], [employer] and or [employer]. Substitutions may have occurred due to the inherent limitations of voice recognition and artificial intelligence software. 1. Bladder mass (N32.89: Other specified disorders of bladder) Cysto IO today without complications. Pt to complete prophy ATB. Discussed options with pt and his daughter including cysto/TURBT vs continued surveillance due to cysto findings. Pt opts to proceed with TURBT. -Reference procedure section -Will schedule Cysto with TURBT w/ fulguration. The procedure risks, benefits, details, and treatment alternatives have been discussed with the patient. These include bleeding -- sometimes to the point of hemorrhaging, infection, risk of bladder perforation, recurrence of bladder tumor in 60-70% of patients, need for indwelling catheter for a variable amount of time, as well as the rare risk of needing an open operation to repair the bladder, among others. Additional therapy as well as follow-up bladder evaluation will most likely be required. Full informed consent has been obtained. Will order General anesthesia. 2. History of bladder cancer (Z85.51: Personal history of malignant neoplasm of bladder) S/p Cysto 10/31/2020, TURBT 10/23/2021. Completed BCG #6 of 6 on 12/30/2021. There was mention for pt to complete BCG 06/2022, however this was not done. S/p cysto 04/26/23 - bladder is abnormal, moderate (2) trabeculation with old scar, no recurrence of bladder cancer. 11/01/23 ~Reviewing her previous operative note reveals that the patient actually refused further intravesical BCG. After discussing with the patient's daughter they do however agree to proceed with repeat cystoscopy at this time. FISH/cytology 11/01/23 - negative. S/p cysto w/ bladder wash 11/18/23 - moderately obstructing, 3.5 cm long gland with mainly lateral lobe hypertrophy and a moderately high riding bladder neck. Retained urine. Old scar across the base of the bladder. Neg for b.t. Fairly prominent bladder diverticulum anteriorly. FISH/cytology 11/18/23 - negative. -See #1 Overall the patient tolerated cystoscopy well. Unfortunately we did find the micropapillary tumor on the left anterior aspect of the bladder with some surrounding erythema. Cannot rule out bladder cancer recurrence. I discussed extensively with the patient and his daughter and they wish to proceed with a cystoscopy TUR bladder tumor and fulguration. I will try to stay conservative and that a deep resection will not be performed secondary to his advanced age and location of tumor. We will ablate the tumor after biopsy/tumor bed. They agree with that plan and do understand that a Valverde catheter may be indwelling. He does have an increased anesthesia risk secondary to advanced age and comorbidities. He will have to be off of his antiplatelet therapy which will be restarted once postoperative hematuria would dissipate. They agree with the plan Follow-up With When Contact Information BRUNILDA PURCELL, Shaun De La Cruz, URL [address] [place] [id number]- Additional Instructions: Schedule cysto/TURBT/fulguration Patient Education Transurethral Resection of Bladder Tumor I, Rosita Alexander, personally scribed for Dr. Worley on 09/18/2024 14:20:11. . Documentation recorded by the scribe, Rosita Alexander, accurately reflects the services(s) I performed and decisions made by me. Authenticated by Dr. Worley on 09/18/2024 14:20:55. Problem List/Past Medical History Ongoing 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 tract symptoms Bilateral renal atrophy Bladder mass Bladder tumor BMI 37.0-37.9, adult Bradycardia BXO (balanitis xerotica obliterans) CAD (coronary artery disease) Calciphylaxis Cardiomegaly Cerebral atrophy Chronic cystitis Chronic obstructive pulmonary disease CKD (chronic kidney disease) Congestive heart failure Deafness Diabetes Diabetic neuropathy Diverticular disease Dysuria Former pipe smoker Glucosuria Gross hematuria Headaches due to old head injury Heart disease History of bladder cancer History of colon polyps Hyperlipidemia Hypertension Impotence Isolated proteinuria Kidney stones Microscopic hematuria Morbid obesity Nocturia Penile edema Personal history of kidney stones Phimosis Positive fecal occult blood test Postprocedural fossa navicularis urethral stricture Proteinuria Rheumatoid arthritis SOB (shortness of breath) UTI (urinary tract infection) Ventricular hypertrophy Weak urinary stream Wound of skin Historical Anticoagulant long-term use Anticoagulated Ex-cigarette smoker Procedure/Surgical History Cystoscopy (09/18/2024), Cystoscopy (04/26/2023), Cystoscopy (01/29/2022), TURBT - Transurethral resection of bladder tumor (10/23/2021), Circumcision (12/13/2019), Colonoscopy (03/09/2016), Cystoscopy and transurethral resection of bladder tumour (12/06/2014), Cystoscopy (11/20/2014), Lithotripsy (01/30/2010), Colonoscopy (06/05/2009), Arthroscopy of knee, Cardiac catheterization, Cataract extraction and insertion of intraocular lens, Knee derangement......, Mastoidectomy, Placement of stent in cardiac conduit, Total knee replacement.. Medications allopurinol 300 mg Tab, 300 mg= 1 tab(s), Oral, Daily aspirin 81 mg Oral EC Tab, 81 mg= 1 tab(s), Oral, Daily Cipro 500 mg Tab, See Instructions clopidogrel 75 mg Tab, 75 mg= 1 tab(s), Oral, Daily isosorbide mononitrate 30 mg ER Tab, 30 mg= 1 tab(s), Oral, qAM Klor-Con M20, 20 mEq, Oral, BID Lipitor 40 mg Tab, 40 mg= 1 tab(s), Oral, Once a day (at bedtime) lisinopril 2.5 mg Tab, 2.5 mg= 1 tab(s), Oral, Daily metformin, 500 mg, Oral, BID metoprolol 25 mg ER Tab, 25 mg= 1 tab(s), Oral, Daily Novolin 70/30 Trelegy Ellipta 100 mcg-62.5 mcg-25 mcg inhalation powder, 1 puff(s), Inhalation, Daily Allergies No Known Allergies No Known Medication Allergies Social History Alcohol - Denies Alcohol Use, 03/05/2015 Substance Abuse - Denies Substance Abuse, 03/05/2015 Tobacco - Denies Tobacco Use, 03/05/2015 Cigars or pipes but not daily within last 30 days, Former smoker, quit more than 30 days ago Tobacco Use:. Never Smokeless Tobacco Use:. Pipe, 09/18/2024 Family History Asthma: Mother. Cancer: Father. Congenital heart disease: Mother. Hypertension: Mother. Immunizations Vaccine Date Status Comments BCG 12/30/2021 Given BCG 12/23/2021 Given BCG 12/18/2021 Given BCG 12/16/2021 Given BCG 12/02/2021 Given BCG 11/18/2021 Given SARS-CoV-2 (COVID-19) Ad26 vaccine - Not Given Patient Refuses BCG 11/11/2021 Given influenza virus vaccine, inactivated 05/07/2021 Recorded influenza virus vaccine, inactivated 04/18/2021 Recorded influenza virus vaccine, inactivated 04/2020 Recorded influenza virus vaccine, inactivated 04/11/2020 Recorded influenza virus vaccine, inactivated 06/17/2017 Recorded influenza, unspecified formulation 05/20/2016 Recorded Result Comment: Electronical ly Signed By: Shaun WORLEY MD\.br\Date and Time Signed: 09/18/24 14:22 EST\.br\Electronically Co-Signed By: Rosita Alexander.br\Date and Time Co-Signed: 09/18/24 14:20 EST PATIENT EDUCATION Observed: 09/18/2024 2:19 PM Status: F Source: [facility] Patient Education Oncology Transurethral Resection of Bladder Tumor Transurethral resection of a bladder tumor is the removal (resection) of cancerous tissue (tumor) from the inside wall of the bladder. The bladder is the organ that holds urine. The tumor is removed through the tube that carries urine out of the body (urethra). In a transurethral resection, a thin telescope with a light, a tiny camera, and an electric cutting edge (resectoscope) is passed through the urethra. In men, the opening of the urethra is at the end of the penis. In women, it is just above the opening of the vagina. Tell a health care provider about: ??? Any allergies you have. ??? All medicines you are taking, including vitamins, herbs, eye drops, creams, and smmt-cmj-nxjlzhi medicines. ??? Any problems you or family members have had with anesthetic medicines. ??? Any bleeding problems you have. ??? Any surgeries you have had. ??? Any medical conditions you have, including recent urinary tract infections. ??? Whether you are or may be . What are the risks? Generally, this is a safe procedure. However, problems may occur, including: ??? Infection. ??? Bleeding. ??? Allergic reactions to medicines. ??? Damage to nearby structures or organs. ??? Difficulty urinating from blockage of the urethra or not being able to urinate (urinary retention). ??? Deep vein thrombosis. This is a blood clot that can develop in your leg. ??? Recurring cancer. What happens before the procedure? When to stop eating and drinking Follow instructions from your health care provider about what you may eat and drink before your procedure. These may include: ??? 8 hours before your procedure ? Stop eating most foods. Do not eat meat, fried foods, or fatty foods. ? Eat only light foods, such as toast or crackers. ? All liquids are okay except energy drinks and alcohol. ??? 6 hours before your procedure ? Stop eating. ? Drink only clear liquids, such as water, clear fruit juice, black coffee, plain tea, and sports drinks. ? Do not drink energy drinks or alcohol. ??? 2 hours before your procedure ? Stop drinking all liquids. ? You may be allowed to take medicines with small sips of water. Medicines Ask your health care provider about: ??? Changing or stopping your regular medicines. This is especially important if you are taking diabetes medicines or blood thinners. ??? Taking medicines such as aspirin and ibuprofen. These medicines can thin your blood. Do not take these medicines unless your health care provider tells you to take them. ??? Taking xatt-epa-azodjkv medicines, vitamins, herbs, and supplements. General instructions ??? If you will be going home right after the procedure, plan to have a responsible adult: ? Take you home from the hospital or clinic. You will not be allowed to drive. ? Care for you for the time you are told. ??? Ask your health care provider what steps will be taken to help prevent infection. These steps may include: ? Washing skin with a germ-killing soap. ? Taking antibiotic medicine. ??? Do not use any products that contain nicotine or tobacco for at least 4 weeks before the procedure. These products include cigarettes, chewing tobacco, and vaping devices, such as e-cigarettes. If you need help quitting, ask your health care provider. What happens during the procedure? An IV will be inserted into one of your veins. ??? You will be given one or more of the following: ? A medicine to help you relax (sedative). ? A medicine that is injected into your spine to numb the area below and slightly above the injection site (spinal anesthetic). ? A medicine that is injected into an area of your body to numb everything below the injection site (regional anesthetic). ? A medicine to make you fall asleep (general anesthetic). ??? Your legs will be placed in foot rests (stirrups) to open your legs and bend your knees. ??? The resectoscope will be passed through your urethra and into your bladder. ??? The part of your bladder with the tumor will be resected by the cutting edge of the resectoscope. ??? Fluid will be passed to rinse out the cut tissues (irrigation). ??? The resectoscope will then be taken out. ??? A small, thin tube (catheter) will be passed through your urethra and into your bladder. The catheter will drain urine into a bag outside of your body. The procedure may vary among health care providers and hospitals. What happens after the procedure? Your blood pressure, heart rate, breathing rate, and blood oxygen level will be monitored until you leave the hospital or clinic. ??? You may continue to receive fluids and medicines through an IV. ??? You will be given pain medicine to relieve pain. ??? You will have a catheter to drain your urine. ? The amount of urine will be measured. If you have blood in your urine, your bladder may be rinsed out by passing fluid through your catheter. ??? You will be encouraged to walk as soon as you can. ??? You may have to wear compression stockings. These stockings help to prevent blood clots and reduce swelling in your legs. ??? If you were given a sedative during the procedure, it can affect you for several hours. Do not drive or operate machinery until your health care provider says that it is safe. Summary ??? Transurethral resection of a bladder tumor is the removal (resection) of a cancerous growth (tumor) on the inside wall of the bladder. ??? To do this procedure, your health care provider uses a thin telescope with a light, a tiny camera, and an electric cutting edge (resectoscope) that is guided to your bladder through your urethra. The part of your bladder that is affected by the tumor will be resected by the cutting edge of the resectoscope. ??? A catheter will be passed through your urethra and into your bladder. The catheter will drain urine into a bag outside of your body. ??? If you will be going home right after the procedure, plan to have a responsible adult take you home from the hospital or clinic. You will not be allowed to drive. This information is not intended to replace advice given to you by your health care provider. Make sure you discuss any questions you have with your health care provider. Document Revised: 07/10/2022 Document Reviewed: 07/10/2022 [employer] Patient Education ? 2023 [employer] ALLERGIES DATE TYPE / CODE NAME / CODE REACTION SEVERITY SOURCE SYSTEMIC/[id number](SNOMED CT) NO KNOWN ALLERGIES [facility] /[id number]([facility] ED CT) indapamide [facility] /[id number]([facility] ED CT) losartan [facility] [id number](SNOM ED CT) No Known Allergies [facility] [id number](SNOM ED CT) No Known Medication Allergies [facility] ENCOUNTERS ADMIT/DISCHARGE ACCOUNT NUMBER ADMITTING ENCOUNTER CLASS LOCATION SOURCE 03/09/2025/03/09/20 [id number] Ambulatory Building:DOG [id number] [facility]ulatory 03/09/2025/03/09/20 [id number] Ambulatory Building:[facility] 03/09/2025/03/09/20 [id number] Ambulatory Building:[address] 01/11/2025/01/12/20 [id number] Ambulatory Building:[address] 12/07/2024/12/08/19 [id number] Ambulatory Building:[facility] [id number] Ambulatory 11/21/2024/11/22/19 [id number] Ambulatory Building:[facility] 11/21/2024 [id number] MARY CRANE Ambulatory Building:[facility] 11/21/2024/11/22/19 [id number] Ambulatory Building:DOG [id number] Ambulatory 10/17/2024/10/18/19 [id number] Ambulatory Building: [id number] [place] [address] Ambulatory 10/12/2024/10/13/19 [id number] Ambulatory Building: [id number] [place] [address] Ambulatory 10/10/2024 [id number] Ambulatory [place]EU [place] [facility] 10/10/2024/10/11/19 25 [id number] Ambulatory [place] : Exam 7 [facility] 10/05/2024/10/06/19 25 [id number] Ambulatory [place] : Exam 1 [facility] 09/28/2024 [id number] Gian Lyon Ambulatory [facility] :3NRoom: U997Voe: 01 [facility] 09/28/2024/09/30/19 [id number] Gian Lyon Ambulatory [facility] :3NRoom: A782Irm: [facility] 09/28/2024 [id number] Shaun WORLEY Ambulatory [facility] :ASRoom: YK96Lcc: 01 [facility] 09/20/2024 [id number] Shaun WORLEY Ambulatory [facility] :FT PST [facility] 09/20/2024/09/21/19 [id number] Shaun WORLEY Ambulatory [facility] :FT PST [facility] 09/18/2024/09/19/19 [id number] Shaun WORLEY Ambulatory [facility] :FT LAB [facility] 09/18/2024/09/19/19 [id number] Ambulatory [place] : Exam 2 [facility] 09/14/2024/09/14/19 [id number] Ambulatory Building:[facility] [id number] Ambulatory 08/28/2024/08/28/19 [id number] Ambulatory Building:[facility] [id number] [place] [address] Ambulatory PAYERS ENCOUNTER GUARANTOR PAYER SUBSCRIBER SOURCE 03/09/2025 MARTINA DC: [place], [place] [address]Bqk: () Primary Insurance:MEDICARE Policy Number: [id number] ve Date:2007-03-19 MARTINA DC: [id number] [place], [place] [address]Fcy: () [facility] Ambulatory 03/09/2025 Secondary Insurance:AARGHAZALoli cy Number: [id number] ve Date:2022-07-19 MARTINA DC: [id number] [place], [place] [address]Ztv: () [facility] 03/09/2025 MARTINA DC: [place], [place] [address]Zqs: () Primary Insurance:MEDICARE Policy Number: [id number] ve Date:2007-03-19 MARTINA SADLERB: [id number] [place], [place] [address]Kwa: () [facility] 03/09/2025 Secondary Insurance:CHELITAEnma cy Number: [id number] ve Date:2022-07-19 MARTINA SADLERB: [id number] [place], [place] [address]Jvm: () [facility] 03/09/2025 MARTINA SADLERB: [id number] [place], [place] [address]Nyo: () Primary Insurance:MEDICARE Policy Number: [id number] ve Date:2007-03-19 MARTINA SADLERB: [id number] [place], [place] [address]Xhl: () [facility] 03/09/2025 Secondary Insurance:Fred cy Number: [id number] ve Date:2022-07-19 MARTINA SADLERB: [id number] [place], [place] [address]Kwz: () [facility] 01/11/2025 MARTINA SADLERB: [id number] [place], [place] [address]Nwc: () Primary Insurance:MEDICARE Policy Number: [id number] ve Date:2007-03-19 MARTINA SADLERB: [id number] [place], [place] [address]Ccv: () [facility] 01/11/2025 Secondary Insurance:AARGHAZALoli cy Number: [id number] ve Date:2022-07-19 MARTINA DC: [id number] [place], [place] [address]Vmh: () [facility] 12/07/2024 MARTINA SADLERB: [place], [place] [address]Yik: () Primary Insurance:MEDICARE Policy Number: [id number] Date:2007-03-19 MARTINA DC: [id number] [place], [place] [address]Mjs: () [facility] 12/07/2024 Secondary Insurance:Fred cy Number: [id number] ve Date:2022-07-19 MARTINA DC: [id number] [place], [place] [address]Fbw: () [facility] 11/21/2024 MARTINA DC: [place], [place] [address]Uzl: () Primary Insurance:MEDICARE Policy Number: [id number] Date:2007-03-19 MARTINA DC: [id number] [place], [place] [address]Ktg: () [facility] 11/21/2024 Secondary Insurance:Fred cy Number: [id number] ve Date:2022-07-19 MARTINA DC: [id number] [place], [place] [address]Gng: () [facility] 11/21/2024 MARTINA DC: [place] [address]Mhq: () Primary Insurance:MEDICARE Policy Number: [id number] Date:2007-03-19 MARTINA DC: [id number] [facility] [place] [address]Apa: () [facility] 11/21/2024 Secondary Insurance:Fred cy Number: [id number] ve Date:2022-07-19 MARTINA SADLERB: [id number] [facility] [place] [address]Dld: () [facility] 11/21/2024 MARTINA SADLERB: [id number] [facility] [place] [address]Jdm: () Primary Insurance:MEDICARE Policy Number: [id number] ve Date:2007-03-19 MARTINA DC: [id number] [facility] [place] [address]Bmu: () [facility] 11/21/2024 Secondary Insurance:Fred cy Number: [id number] ve Date:2022-07-19 MARTINA DC: [id number] [facility] [place] [address]Fed: () [facility] 10/17/2024 MARTINA SADLERB: [id number] [facility] [place] [address]Opu: () Primary Insurance:MEDICARE Policy Number: [id number] ve Date:2007-03-19 MARTINA SADLERB: [id number] [facility] [place] [address]Yzj: () [facility] 10/17/2024 Secondary Insurance:Fred cy Number: [id number] ve Date:2022-07-19 MARTINA SADLERB: [id number] [place], [place] [address]Cuk: () [facility] 10/12/2024 MARTINA SADLERB: [id number] [place], [place] [address]Viy: (HP) Primary Insurance:MEDICARE Policy Number: [id number] ve Date:2007-03-19 MARTINA SALDERB: [id number] [place], [place] [address]Rce: () [facility] 10/12/2024 Secondary Insurance:Fred cy Number: [id number] ve Date:2022-07-19 MARTINA SADLERB: [id number] [place], [place] [address]Yth: () [facility] 10/10/2024 MARTINA SADLERB: [id number] [address]: ~(118 (HP) Primary Insurance:MEDICARE Policy Number: [id number] Date:2830-67-60WE [address]Qjzbjmzv, [place] [address]JY: MARTINA FANG [facility] 10/10/2024 Secondary Insurance:AARPPoli cy Number: [id number] ve Date:1414-47-22[address]QUVMRQ, [place] [address]KP: MARTINA FANG [facility] 10/05/2024 MARTINA SADLERB: [id number] [address]: ~(542 (HP) Primary Insurance:MEDICARE Policy Number: [id number] ve Date:1880-77-22PS [address], [place] [address]QU: MARTINA FANG [facility] 10/05/2024 Secondary Insurance:Fred cy Number: [id number] ve Date:5132-71-56RG [facility] [address], [place] [address]XI: MARTINA FANG [facility] 09/28/2024 MARTINA DC: [id number] [address]: ~[phone] (HP) Primary Insurance:MEDICARE Policy Number: [id number] ve Date:2863-29-84CA [address]Kwcjqqsd, [place] [address]UJ: MARTINA FANG [facility] 09/28/2024 Secondary Insurance:Fred cy Number: [id number] ve Date:8513-69-84NP [facility] [place]22[place], [place] [address]QU: MARTINA FANG [facility] 09/28/2024 MARTINA DC: [id number] [address]: ~([phone] (HP) Primary Insurance:MEDICARE Policy Number: [id number] ve Date:7303-02-05KQ [address]ms[place], [place] [address]HB: MARTINA FANG [facility] 09/28/2024 Secondary Insurance:Fred cy Number: [id number] ve Date:3065-90-75RO [address]PEYX[place], [place] [address]GD: MARTINA FANG [facility] 09/28/2024 MARTINA DC: [id number] [address]: ~[phone] (HP) Primary Insurance:MEDICARE Policy Number: [id number] ve Date:2562-21-84ZE [place] [address], [place] [address]WV: MARTINA FANG [facility] 09/28/2024 Secondary Insurance:Fred cy Number: [id number] ve Date:4115-53-22YP [address]DJYVVLM, [place] [address]HO: MARTINA FANG [facility] 09/20/2024 MARTINA DC: [id number] [address]: ~([phone] (HP) Primary Insurance:MEDICARE Policy Number: [id number] Date:8921-88-84RT [place] [address], [place] [address]GL: MARTINA FANG [facility] 09/20/2024 Secondary Insurance:CHELITAGHAZALrohan cy Number: [id number] ve Date:9528-17-20FI [facility] [place], [place] [address]XD: MARTINA FANG [facility] 09/18/2024 MARTINA SADLERB: [id number] [address]: ~([phone] (HP) Primary Insurance:MEDICARE Policy Number: [id number] ve Date:7071-42-52OU [place] [address], [place] [address]CU: MARTINA FANG [facility] 09/18/2024 Secondary Insurance:CHEILTAGHAZALrohan cy Number: [id number] ve Date:6559-12-04YQ [facility] [address], [place] [address]FL: MARTINA FANG [facility] 09/18/2024 MARTINA SADLERB: [id number] [address]: ~[phone] (HP) Primary Insurance:MEDICARE Policy Number: [id number] ve Date:7496-12-71ZE [address] [address]KP: MARTINA FANG [facility] 09/18/2024 Secondary Insurance:AARPPoli cy Number: [id number] ve Date:1233-51-06DN [address]LM, [place] [address]PU: MARTINA FANG [facility] 09/14/2024 MARTINA DC: [id number] [place], [place] [address]Yty: () Primary Insurance:MEDICARE Policy Number: [id number] Date:2007-03-19 MARTINA DC: [id number] [place] [address]Bhe: () [facility] 09/14/2024 Secondary Insurance:Fred cy Number: [id number] ve Date:2022-07-19 MARTINA DC: [id number] [place] [address]Ynb: () [facility] 08/28/2024 MARTINA SADLERB: [id number] [place], [place] [address]Abp: () Primary Insurance:MEDICARE Policy Number: [id number] ve Date:2007-03-19 MARTINA SADLERB: [id number] [place] [address]Khi: () [facility] 08/28/2024 Secondary Insurance:AAREnma cy Number: [id number] ve Date:2022-07-19 MARTINA DC: [id number] [place], [place] [address]Ulj: () [facility]
[2025-04-17 08:26] LABS: Hematocrit 39.4 % (42.0-54.0); Hemoglobin 12.5 g/dL (14.0-18.0); Immature Granulocytes Abs Auto 0.03 10^3/uL (0.00-0.03); Immature Granulocytes Pct Auto 0.3 % (0.0-0.5); Lymphocytes Absolute Auto 2.3 10^3/uL (1.2-3.8); Mean Corpuscular HGB Conc 31.7 g/dL (29.9-35.2); Mean Corpuscular Hemoglobin 29.7 pg (25.9-34.0); Mean Corpuscular Volume 93.6 fL (80.0-94.0); Platelet Count 174 10^3/uL (150-450); Red Blood Count 4.21 10^6/uL (4.70-6.10); White Blood Count 9.0 10^3/uL (4.0-11.0)
[2025-04-17 09:22] LABS: Alanine Aminotransferase 27 U/L (16-63); Albumin Globulin Ratio 1.0; Albumin Level 3.4 g/dL (3.4-5.0); Alkaline Phosphatase 99 U/L (46-116); Anion Gap 13.2; Aspartate Amino Transferase 15 U/L (15-37); Blood Urea Nitrogen 37.0 mg/dL (7.0-18.0); Calcium 8.6 mg/dL (8.5-10.1); Carbon Dioxide 26.7 mmol/L (21.0-32.0); Chloride 110 mmol/L (98-107); Cholesterol 68 mg/dL (<=200); Estimated GFR (African America 45 (>=60 mL/min/1.73m^2); Estimated GFR (Non-African Ame 37 (>=60 mL/min/1.73m^2); Free T3 1.78 pg/mL (2.18-3.98); Globulin 3.3 g/dL; Glucose 66 mg/dL (74-106); HDL Cholesterol 31 mg/dL (40-60); NT Pro B Type Natriuretic Pept 259.0 pg/mL (<=1800.0); Potassium 4.9 mmol/L (3.5-5.1); Sodium 145 mmol/L (136-145); Thyroid Stimulating Hormone 2.658 uIU/mL (0.358-3.740); Total Protein 6.7 g/dL (6.4-8.2); Triglycerides 34 mg/dL (<=150); VLDL CHOLESTEROL 6.8 mg/dL
== END 2025-04-17 07:53 | disposition home or self-care (01) ==
LOC: LAB 07:57
PROVIDERS: PCP Family Medicine; Visit Provider Family Medicine
DX: I11.0 Hypertensive heart disease with heart failure (principal); I50.9 Heart failure, unspecified; E11.9 Type 2 diabetes mellitus without complications; J44.9 Chronic obstructive pulmonary disease, unspecified; I48.0 Paroxysmal atrial fibrillation; E78.5 Hyperlipidemia, unspecified; E03.9 Hypothyroidism, unspecified; Z12.5 Encounter for screening for malignant neoplasm of prostate; D50.9 Iron deficiency anemia, unspecified; I50.30 Unspecified diastolic (congestive) heart failure
CPT/HCPCS: 36415; 80053; 80061; 83036; 83880; 84436; 84443; 84481; 85025; G0103